=== PATIENT | female | born 1960 | race Caucasian/White ===

== ENCOUNTER 2023-05-18 22:17 | Emergency (ER) | payer OTHER, SELFPAY ==
[2023-05-18 22:18] VITALS: BP 179/95; PULSE 69; RESP 16; TEMP 36.4; O2SAT 99; BMI 46.0
--- NOTE | 2023-05-18 22:28 | RAD_ITS ---
EXAM: XR CHEST, 2 VIEWS CLINICAL INDICATION: chest pain TECHNIQUE: Frontal and lateral views of the chest. COMPARISON: No relevant prior studies available. FINDINGS: LUNGS AND PLEURAL SPACES: Unremarkable. No consolidation or edema. No pneumothorax. No effusion. HEART: Unremarkable. Cardiac silhouette not enlarged. MEDIASTINUM: Central airways and mediastinal contour are unremarkable. BONES/JOINTS: Degenerative changes of the spine. SOFT TISSUES: Unremarkable. RAD/Chest PA and Lateral IMPRESSION: No acute findings in the chest. Electronically Signed: Arvind Manuel MD at 0:24 EDT ,
--- NOTE | 2023-05-18 22:29 | EX.ED.DYSGE1 ---
HPI History of Present Illness Chief Complaint: Other, Pain/Inj Informant: patient Narrative Narrative: Here with significant other for evaluation tightness in her throat an hour prior to arrival. She is watching TV. She had already ate dinner, there was no swallowing issues while eating. However she reports feels like something is stuck. This was not an abnormal for her. She states Mild short of breath lightheaded. She does have a history of anxiety. Reports history of hiatal hernia diagnosed 2 weeks ago with endoscopy Dr. Nielsen. She has been having swallowing issues therefore endoscopy performed with findings of the hiatal hernia. Denies any other acute findings or any strictures. Recommendation was to continue her omeprazole. Reports mild chest discomfort when discussed. No nausea or vomiting. No radicular symptoms. She did drink fluids prior to arrival with no difficulties. History of hyperlipidemia. Denies diabetes or hypertension. Denies tobacco. Prior similar symptoms: No PFSH [facility] Medical History Acid reflux Anxiety Hiatal hernia High cholesterol Home Medications atorvastatin 20 mg tablet 20 mg PO DAILY 05/18/23 [History Last Taken Unknown] citalopram 20 mg tablet 20 mg PO DAILY 05/18/23 [History Last Taken Unknown] omeprazole 20 mg capsule,delayed release 20 mg PO DAILY 05/18/23 [History Last Taken Unknown] Allergy/AdvReac Type Severity Reaction Status Date / Time No Known Allergies Allergy Verified 05/18/23 22:17 Social History Smoking Status: Never smoker ROS [facility] ED Constitutional Constitutional ED: Denies chills, fever(s) or sweats Eyes Eyes: Denies change in vision ENT ENT ED: Denies dysphagia or sore throat Cardiovascular Cardiovascular: Reports chest pain; Denies leg edema, palpitations or racing heartbeat Respiratory/Chest Respiratory/Chest: Denies cough, dyspnea or dyspnea on exertion Gastrointestinal Gastrointestinal: Denies abdominal pain, diarrhea, nausea or vomiting Genitourinary Genitourinary ED: Denies dysuria, hematuria or urinary frequency Musculoskeletal Musculoskeletal: Denies back pain, extremity pain or neck pain Integumentary Denies rash or wounds Neurologic Neurologic: Denies headache(s), paresthesias or weakness EXAM Physical Exam Const Vital Signs: 05/18/23 22:18 05/18/23 23:42 05/19/23 02:29 Temperature 97.5 F L Temperature Source Temporal Pulse Rate 69 63 Respiratory Rate 16 16 Blood Pressure 179/95 H 118/73 Blood Pressure Mean 123 88 Pulse Ox 99 98 97 Oxygen Delivery Method Room Air Room Air 05/19/23 02:30 Temperature Temperature Source Pulse Rate 61 Respiratory Rate 16 Blood Pressure 118/73 Blood Pressure Mean Pulse Ox 98 Oxygen Delivery Method Positive well nourished and well developed General Appearance ED: well developed and NAD HEENT Reports moist mucous membranes HEENT Narrative: No lip or tongue swelling airway patent no stridor. normocephalic and atraumatic Eyes PERRL, EOMs intact bilaterally and conjunctivae normal General Eye ED: Yes normal appearance of both eyes Neck no lymphadenopathy and supple Neck Narrative: No crepitus General: Negative for tenderness Chest Wall inspection of chest normal and palpation of chest normal Chest: Negative for tenderness Resp normal respiratory effort and normal air movement Effort and Inspection: symmetric chest movement; Negative for respiratory distress Cardio regular rate, regular rhythm and no murmurs Peripheral Pulses: pulses 2+ throughout GI normal to inspection, nondistended, normoactive bowel sounds and non-tender Palpation: Negative for guarding or rebound tenderness present Back/Spine no CVA tenderness and no thoracic nor lumbar tenderness Extremity normal to inspection General Extremety ED: Negative for edema or tenderness General Extremity: Negative for edema Neuro oriented x3 and no sensory deficits noted Sensorium / Orientation: awake and alert Skin no rashes or lesions noted and no wounds MDM MDM MDM Narrative Medical decision making narrative: Interventions / MDM: Differential diagnosis: Atypical chest pain Diagnosis considered but do not suspect: ACS however normal EKG negative cardiac enzymes, allergic reaction, however no swelling, normal typical foods eaten in the past. Symptoms resolved without intervention. My EKG interpretation: Sinus rate of 64, no ST or T wave changes. Imaging independently reviewed and interpreted by myself: 2 view chest x-ray: No acute process. External documents reviewed: N/A Test considered but not ordered:N/A ED course: Stable throat tightness no airway compromise. No respiratory distress. Nontoxic. EKG obtained normal. Cardiac work-up initiated. Aspirin given. Initial difficulty with IV blood work. Obtain initial troponin negative. Hemoglobin 13. Electrolyte normal. Two-view chest x-ray negative also read by radiology. 0140: Multiple reevaluations symptoms were improving. She is tolerating oral fluid intake on reevaluation. Awaiting delta troponin. 0230: Repeat troponin also negative. Symptoms improved. Outpatient follow-up for further testing with strict return precautions. All questions were answered. Re-evaluation: stable Disposition discussed with patient/family/significant other: Patient and significant other Case discussed with consulting clinician: N/A This note was generated with Secret dictation software. It may contain incorrect words, spelling, and punctuation that were not noted in checking the note before signing. Lab Data Attestation: I reviewed the patient's lab results. Labs: Laboratory Results - last 24 hr 05/18/23 05/19/23 23:40 01:53 WBC 8.0 RBC 4.27 Hgb 13.0 Hct 39.4 MCV 92.3 MCH 30.4 MCHC 33.0 RDW Std Deviation 41.0 RDW Coeff of Conrad 12.2 Plt Count 245 MPV 10.3 Immature Gran % (Auto) 0.600 Neut % (Auto) 50.8 Lymph % (Auto) 40.3 Sharkey % (Auto) 6.5 Eos % (Auto) 1.4 Baso % (Auto) 0.4 Absolute Neuts (auto) 4.0 Absolute Lymphs (auto) 3.20 Nucleated RBC % 0 Sodium 142 Potassium 3.7 Chloride 110 H Carbon Dioxide 30.0 Anion Gap 2 L BUN 18 Creatinine 0.82 Estim Creat Clear Calc 56.98 Est GFR (MDRD) Af Amer 91 Est GFR (MDRD) Non-Af 75 BUN/Creatinine Ratio 21.9 H Glucose 114 H Calcium 9.3 Troponin I High Sens 7 7 Radiography Diagnostic Testing: Clinical Impression(s) from Imaging Studies Chest X-Ray 05/18/23 22:28 IMPRESSION: No acute findings in the chest. Electronically Signed: Arvind Manuel MD at 0:24 EDT , Discharge Plan Triage Chief Complaint: Other, Pain/Inj ED Provider: Henry Vasques Dx/Rx/DC Orders Clinical Impression: Chest pain Instructions: ED Chest Pain, Uncertain Cause Prescriptions: No Action atorvastatin 20 mg tablet 20 mg PO DAILY citalopram 20 mg tablet 20 mg PO DAILY omeprazole 20 mg capsule,delayed release(DR/EC) 20 mg PO DAILY Primary Care Provider: Rupa Miranda NP Referrals: Rupa Miranda NP, TE[employer]NICAL SOLUTION ARCHITECT-[employer] [Primary Care Provider] - 3-5 Days Activity Restrictions/Additional Instructions: EKG cardiac work-up negative. Chest x-ray negative. Follow-up with your doctor further testing. Return if any worsening or recurrent symptoms. Disposition Disposition: Home, Self Care Discharge Date/Time: 05/19/23 02:34
[2023-05-18 23:42] VITALS: O2SAT 98
[2023-05-18] MEDS: Aspirin 81 MG TAB.CHEW 324 MG PO (23:45)
[2023-05-18 23:55] LABS: Basophil# 0.03 X10^3/uL; Basophil% 0.4 % (0-1); Eosinophil# 0.11 X10^3/uL; Eosinophils% 1.4 % (0-5); Hematocrit 39.4 % (37-47); Lymphocyte % 40.3 % (19-41); Mean Corpuscular Hgb 30.4 pg (27.0-32.0); Mean Corpuscular Volume 92.3 fL (81-99); Mean Platelet Vol. 10.3 fl (6.2-12.0); Monocyte# 0.52 X10^3/uL; Monocyte% 6.5 % (0-10); NRBC Flagged by Analyzer 0 % (0-5); Neutrophil # 4.04 X10^3/uL (2.7-7.7); Neutrophil % 50.8 % (47-70); Platelet Count 245 K/mm3 (150-450); RBC Distribution Width CV 12.2 % (11.6-14.6); Red Blood Count 4.27 M/mm3 (4.2-5.4)
[2023-05-19 00:01] LABS: Anion Gap 2 (5-15); BUN 18 mg/dL (7-18); BUN/Creat Ratio 21.9 RATIO (10-20); Calcium,Total 9.3 mg/dL (8.5-10.1); Chloride 110 mmol/L (98-107); Creatinine, Serum 0.82 mg/dL (0.55-1.02); EST Glomerular Filtration Rate 75 mL/min (>60); Est Glom Filt Rate - Afr Amer 91 mL/min (>60); Estimated Creatinine Clearance 56.98 ml/min; Glucose 114 mg/dL (74-106); Potassium 3.7 mmol/L (3.5-5.1); Sodium Level 142 mmol/L (136-145); Troponin-I HS (w/2H Reflex) 7 pg/mL (3.0-54.0)
[2023-05-19 01:42] LABS: Reflex Troponin-HS? (from REC) Y
[2023-05-19 02:15] LABS: Troponin-I HS 7 pg/mL (3.0-54.0)
[2023-05-19 02:29] VITALS: BP 118/73; PULSE 63; RESP 16; O2SAT 97
[2023-05-19 02:30] VITALS: BP 118/73; PULSE 61; RESP 16; O2SAT 98
== END 2023-05-19 02:34 | disposition home or self-care (01) ==
PROVIDERS: Emergency Provider Emergency Medicine; PCP Nurse Practitioner Primary Care; Visit Provider Emergency Medicine
DX: R07.9 Chest pain, unspecified (principal); E78.00 Pure hypercholesterolemia, unspecified; K21.9 Gastro-esophageal reflux disease without esophagitis; Z79.899 Other long term (current) drug therapy
CPT/HCPCS: 71046; 80048; 84484; 85025; 93005; 99284; A4216

== ENCOUNTER → 2023-07-02 | Outpatient (CLI) | payer OTHER, SELFPAY ==
--- NOTE | 2023-07-02 07:44 | US_ITS ---
INDICATION: RUQ pain EXAMINATION: Ultrasound US Abdomen Limited (quadrant) TECHNIQUE: Macario scale and color doppler imaging was performed of the right upper quadrant. COMPARISON: No relevant prior comparison study available FINDINGS: LIVER: The liver is enlarged measuring about 19 cm in length and is echogenic heterogeneous in texture. The portal vein is patent with normal hepatopedal flow. No focal hepatic lesion. There is no free fluid. GALLBLADDER AND BILIARY TREE: Solitary gallstone is seen. Normal gallbladder wall measures 1.6 mm. The proximal common bile duct measures 3.4 mm, which is within normal limits for the patient''s age. Sonographic Cobb''s sign: Negative. PANCREAS: Somewhat echogenic in texture. The tail of the pancreas is obscured by bowel gas. Right kidney: The right kidney measures about 10.6 cm in length. The renal cortex measures 1.1 cm. No evidence of hydronephrosis. US/Liver IMPRESSION: 1. Gallstone without evidence of bladder wall thickening or biliary dilatation. 2. Hepatomegaly. 3. Echogenic heterogeneous liver which may reflect fatty infiltration or metastatic disease. Electronically Signed: Dann Murillo MD at 12:02 EST ,
--- NOTE | 2023-07-02 08:12 | BI_ITS ---
MAMMOGRAPHY - BILATERAL SCREENING REASON FOR EXAM: Female, 62 years old. Routine annual screening examination. PERTINENT HISTORY: Non-contributory. TECHNIQUE: Digital bilateral breast key (3D mammographic acquisition) in the CC and MLO projections. 2-D mediolateral oblique (MLO) and craniocaudad (CC) views of both breasts were obtained. CAD: Full Field Digital Mammography with Computer Added Detection was performed. COMPARISON: Comparison is made with prior outside examination dated January 22, 2020. FINDINGS: Breast Composition: The breasts are almost entirely fatty. There are no dominant masses or suspicious calcifications. Small benign-appearing bilateral axillary lymph nodes. No other significant abnormalities are identified. There has been no significant change since the prior study. BI/SCRN MAMM (CAD)W/KEY BILAT IMPRESSION: Stable bilateral screening mammogram. Yearly follow-up mammogram recommended. (A) ASSESSMENT CATEGORY: BIRADS Category 2: Benign. A letter regarding these results will be sent to the patient by the facility within 30 days. Approximately 10% of breast cancers are not detected by mammography. A normal mammogram should not delay biopsy of a clinically suspicious abnormality. [id number] Electronically Signed: Killian Christie MD at 9:50 EST ,
== END | disposition home or self-care (01) ==
LOC: US 07:43
PROVIDERS: PCP Internal Medicine; Referring Provider Internal Medicine; Visit Provider Internal Medicine
DX: Z12.31 Encounter for screening mammogram for malignant neoplasm of breast (principal); R10.11 Right upper quadrant pain
CPT/HCPCS: 76705; 77063; 77067

== ENCOUNTER 2023-07-23 12:17 | Day surgery (SDC) | payer OTHER, SELFPAY ==
[2023-07-23] VITALS (9 sets, daily range): BP systolic 99–128; BP diastolic 51–66; PULSE 61–77; RESP 16–18; TEMP 36.6–36.9; O2SAT 93–100; BMI 44.7
--- NOTE | 2023-07-23 12:22 | PCM.HP.BLA ---
History and Physical Date of Admission: 07/23/23 Date of Service: 07/16/23 MR#: [id number] Acct: [id number] Name: EDWARD PARADA Rep #: [id number] : 1960 Provider: Dr. Alcira Vizcarra MD Age/Sex: 62/F Location: [facility] Status: Signed Intake Vital Signs 06/20/2312:48 07/16/2308:51 Height 5 ft 2 in 5 ft 2 in Weight: 252 lb BMI 46.0 BP 136/89 H Blood Pressure Location Rt brachial Position Sitting Respiration 17 Pulse 85 Pulse Source Monitor Temp 97.3 F L Temp Source Temporal Pulse Oximetry (%) 97 Oxygen Delivery Method room air Intake Visit Reasons: RUQ PAIN Chief Complaint: ruq pain Is patient in pain?: Yes Allergies No Known Allergies Allergy (Verified 07/16/23 08:52) Medications atorvastatin 20 mg tablet 20 mg PO DAILY 05/18/23 [History Confirmed 07/16/23] citalopram 20 mg tablet 20 mg PO DAILY 05/18/23 [History Confirmed 07/16/23] omeprazole 20 mg capsule,delayed release 20 mg PO DAILY 05/18/23 [History Confirmed 07/16/23] cholecalciferol (vitamin D3) 10 mcg (400 unit) capsule 10 mcg PO DAILY 06/14/23 [History Confirmed 07/16/23] magnesium 200 mg tablet 200 mg PO DAILY 06/14/23 [History Confirmed 07/16/23] vitamin B complex 1 cap PO DAILY 06/14/23 [History Confirmed 07/16/23] PFSH Medical History Acid reflux Anxiety Hiatal hernia High cholesterol Surgical History Encounter for Essure implantation History of removal of cyst Family History Mother Diabetes History of blood clots Anxiety HypertensionFather Diabetes Hypertension Pancreatic cancerSister History of blood clots LymphedemaGrandmother Diabetes Social History adopted: No household members: spouse current occupational status: employed current occupation: [employer] pets and animals: Yes (2) pets and animals: dog(s) history of recent travel: No Smoking Status: Former smoker pack-years: 5 Tobacco: How many years used: 5 Electronic Cigarette Use: not used alcohol intake: never substance use type: does not use diet: low carbohydrate caffeine: Yes (2) Type: coffee frequency: 3-4 times per week ni/orthodoxy: Holiness seatbelt use: always do you feel safe at home: Yes HPI HPI HPI: 63-year-old female presents due to right upper quadrant pain and gallstones. Patient states that she has been having flareups. States that yesterday she did have 1 x 11 a.m. did eat yogurt and some berries about 10 AM. Patient states she had right upper quadrant/epigastric pain rates at the highest as a 9/10 states it did continue throughout the day but patient did have yogurt again that day. Patient states she had nausea denies any vomiting. Did not get better until last night. Patient states today the pain is about a 5/10. Patient has been on omeprazole 20 mg p.o. daily for a couple years. Patient states she may have reflux symptoms maybe twice a week without these flareups are different. Patient had an ultrasound showed a gallstone normal wall normal, bile duct no pericholecystic fluid. ROS General General: Yes weight change; No appetite, fatigue, colon cancer, breast cancer or weakness HEENT HEENT: No difficulty swallowing, eye injury, eye surgery, swollen glands or hoarseness Endo Endocrine: No thyroid disease, diabetes mellitus, thyroid cancer, Hair loss, heat intolerance or cold intolerance Skin Skin: No rash or changing moles Musc Musculoskeletal: No back problems, arthritis, rheumatoid arthritis, gout or joint pain Cardio Cardiovascular: Yes murmur; No pacemaker, heart disease, atrial fibrillation, high blood pressure, heart attack, heart stent, palpitations, shortness of breat with exertion or chest pain Psych Psychiatric: Yes anxiety; No depression or hearing voices Resp Respiratory: No shortness of breath, Yes sleep apnea, No cough, No COPD, No asthma, No emphysema and No wheezing Gastro Gastrointestinal: Yes abdominal pain, Yes nausea or vomiting, No diarrhea, No constipation, No blood in stool, Yes acid reflux, No hemorrhoids, No ulcers, Yes gallbladder problem and No black,tarry stools Uriah Hematologic: No blood thinners, No blood disorders, No bleeding, No anemia and No blood clots Neuro Neurologic: No system reviewed and no additional complaints, except as documented, No as per HPI, No abnormal gait, No abnormal hearing, No abnormal movements, No abnormal speech, No behavioral changes, No burning sensations, No confusion, No convulsions, No disequilibrium, No dizziness, No localized weakness, No frequent falls, No headache(s), No lack of coordination, No loss of vision, No memory loss, No numbness, No other visual disturbances, No radicular pain, No restless legs, No sensory deficit, No syncope, No tingling, No tremor(s), No weakness and No other Exam Const General: cooperative, healthy appearing, comfortable and no acute distress HENMT Head: normocephalic and atraumatic Neck Neck: supple Resp Effort & Inspection: normal respiratory effort Cardio Rate: regular rate GI Inspection: non-distended Palpation: soft, no hernias and tender in the epigastrum and in the RUQ Skin General: no rashes or lesions noted Neuro General: CN's II-XI intact bilaterally Extrem General: normal to inspection Psych Mental Status: mental status grossly normal Attitude: cooperative Assessment and Plan Assessment and Plan (1) Cholelithiasis: Status: Acute Plan Reviewed the anatomy with the patient and discussed the procedure: laparoscopic cholecystectomy with possible cholangiograms, possible open. Review risks including but not limited to bleeding, infection, hernia, bile leak, retained gallstones requiring another procedure ERCP- Endoscopic Retrograde Cholangiopancreatography, injury to another organ (bile ducts, common bile duct, small bowel, etc.) and conversion to an open procedure. All questions were answered. Will have patient increase her omeprazole to 40 mg p.o. daily during the perioperative time and also asked patient to stay with any fatty or greasy foods prior to surgery. Patient was agreeable with plan. Alcira Vizcarra M.D. Pager: [phone] [facility] [address] [place] [address], [facility], [address] [place] [address] Office: [phone] Coding Level of Care Code Off vis,new,level 3 Diagnoses Cholelithiasis K80.20 07/16/23 0947 <Electronically signed by Alcira Vizcarra MD> Date Alcira Vizcarra MD
[2023-07-23] MEDS: Lactated Ringers 1,000 ML 15 ML IV ×2 (12:50→16:42)
[2023-07-23 13:51] LABS: AST(SGOT) 27 U/L (15-37); Alanine Aminotransfer ALT/SGPT 47 U/L (13-56); Albumin, Serum 3.6 g/dL (3.2-5.0); Alkaline Phosphatase 68 U/L (45-117); Bilirubin, Direct 0.15 mg/dL (0.00-0.30); Globulin 3.4 g/dL (2.2-4.2)
[2023-07-23] MEDS: Cefazolin 2 GM in 0.9% Normal Saline (100mL Bag) 100 ML IV (13:52)
--- NOTE | 2023-07-23 14:00 | GALL_PTH ---
PATIENT: EDWARD PARADA LOC: [facility] U#:[id number] AGE/SX: 63/F ROOM: RE07/23/[address]: Dr. Alcira Vizcarra MD : 1960 BED: DIS: 07/23/2023 SPEC #: [id number] RECD: 07/23/23 18:26 STATUS: MARSHALL RERadha #: [id number] ELICEO: 07/23/23 14:[address]: Alcira Vizcarra DEPT: SURGICAL PATHOLOGY RECD BY: Zaira Brown ENTERED: 07/24/23 08:36 SP TYPE: MARY BETH FARIAS DR: Dr. Ann Dennison MD Tissues: Gallbladder, NOS Procedures: Surgery Specimen Level III HEADER OPERATION: Laparoscopic, cholecystectomy with IOC PRE-OP DIAGNOSIS: Cholelithiasis TISSUE SUBMITTED: Gallbladder. MICROSCOPIC DIAGNOSIS Gallbladder, cholecystectomy: Chronic cholecystitis, cholelithiasis and cholesterolosis. AM:kevin 07/25/2023 COMMENT AM:kevin 07/25/2023 MICROSCOPIC DESCRIPTION Slides are reviewed. GROSS DESCRIPTION Received is one container labeled with the patient's name and designated gallbladder. The specimen consists of a gallbladder measuring 8.5 x 3.8 x 3.8 cm. The external surface is smooth and glistening. Focally, it is granular, hemorrhagic and contains cautery artifact. The lumen of the gallbladder contains yellow-green mucoid bile and a single ovoid green-morejon calculus measuring 1.3 x 1.2 x 1.0 cm. The mucosa is bile-stained and without any mass lesions. The gallbladder wall averages 0.1 cm in thickness and is free of mass lesions. Motion Picture Set Up Worker sections of the gallbladder and the cystic duct at margin of resection are submitted in one cassette. / AM:kevin 07/24/2023 TC:3 CPT: 96753
--- NOTE | 2023-07-23 14:13 | RAD_ITS ---
STUDY: INTRAOPERATIVE CHOLANGIOGRAM. REASON FOR EXAM: Female, 63 years old. LAP KEYA FLUOROSCOPY TIME (if supplied): ( 5 seconds ) minutes/seconds. 4.33 mGy TECHNIQUE: An intraoperative cholangiogram was performed by the surgeon. Imaging was provided. COMPARISON: None. FINDINGS: The visualized intrahepatic and extrahepatic biliary ducts are unremarkable. Free flow of contrast is seen within the duodenum. RAD/Cholangiogram/ O R,Initial IMPRESSION: Unremarkable intraoperative cholangiogram. Electronically Signed: Killian Christie MD at 14:48 EST ,
[2023-07-23] MEDS: Bupivacaine Mpf 0.5% 30 ML VIAL (14:59)
--- NOTE | 2023-07-23 15:00 | PCM.OPRPT ---
Report of Operation Date of Procedure: 07/23/23 Pre-Operative Diagnosis: Cholelithiasis Post-Operative Diagnosis: Same Surgery/Procedure Performed:: Laparoscopic cholecystectomy with cholangiograms Surgeon: Alcira Vizcarra kid club attendant: Wendy Euceda Type of Anesthesia: General/Supplemental Anesthesiologist: Brendan Desouza Special Medications: Ancef 2 g IV x 1 Specimen's removed: Gallbladder Estimated Blood Loss (mL): < 10 cc Description of Procedure: Indications: this is a 63 year-old female who developed abdominal pain/nausea/vomiting and on workup was found to have cholelithiasis, with a normal common bile duct. Laparoscopic cholecystectomy was elected. Description procedure: The patient was placed on operating table in supine position. A timeout was completed verifying correct patient, procedure, site, position and special equipment prior to beginning procedure. General Anesthesia was induced. The abdomen was prepped and draped in usual sterile fashion. An incision was made in the natural skin line above the umbilicus. The fascia was elevated and incised. The peritoneum was elevated and incised. Entry into the peritoneum was confirmed visually and no bowel was noted in the vicinity of the incision. [place] trocar was placed. The abdomen was insufflated with carbon dioxide to a pressure of 12-15 mmHg. Patient tolerated insufflation well. The laparoscope was then inserted and abdomen inspected. No injuries from initial trocar placement were noted. Additional trochars were then inserted in the following locations 5 mm trocar in the epigastrium and 2 more 5 mm trochars along the right costal margin. The abdomen was inspected no abnormalities were found. The table is placed in reverse Trendelenburg position with the right side up. The dome of the gallbladder was grasped with atraumatic grasper passed through the lateral port and retracted over the dome of the liver. Infundibulum was then grasped with atraumatic grasper through the midclavicular port and retracted to the right lower quadrant. This maneuver exposed Calot's triangle. The peritoneum overlying the gallbladder infundibulum was then incised and cystic duct and artery identified and circumferentially dissected. Melton catheter was used for cholangiograms. The cholangiogram showed good filling of the common bile duct into the duodenum with no filling defects, good filling of the right and left bile ducts as well. The cystic duct and artery were then doubly clipped and divided close to the gallbladder. The gallbladder then dissected from its peritoneal attachments by electrocautery. Hemostasis was checked and the gallbladder and contained stones were removed using the endoscopic retrieval bag through the umbilical port. The gallbladder is passed off table as specimen. The gallbladder fossa was irrigated with saline and hemostasis obtained. There is no evidence of bleeding from the gallbladder fossa or cystic artery leakage of bile from the cystic duct stump. Secondary trochars removed under direct vision. No bleeding was noted the trocar sites. The laparoscope was withdrawn and umbilical trocar removed. The abdomen was allowed to collapse. The fascia of the 12 mm trocar was closed with a [id number] 0 Vicryl suture. The skin was closed with sutures of 4-0 Monocryl and Steri-Strips. The patient was extubated. The patient tolerated procedure well and was taken to the postanesthesia care unit in stable condition. Complications none
--- NOTE | 2023-07-23 15:02 | DCINST_ITS ---
Discharge Instructions Diet Discharge Diet: Light diet - advance as tolerated Activity Discharge Activity: May Not Drive (while taking narcotic pain medications.) May shower in (days): 1 Lifting Restrictions: no lifting >20 lbs x 2 wks, no strenuous exercise for 4 wks Dressing / Incision Call your doctor if your incision/area has: Continuous Slow Oozing, Sudden Increased Bleeding, Increased Pain/ Swelling, Increased Redness, Foul Smelling Discharge and Swelling at the incision site Call your doctor if you observe: Fever of 101 or Higher Remove Dressing in: 2 days Cleanse incision/area with: Soap & Water Additional Dressing/Incision Instructions:: Steri-Strips will fall off in 7 to 10 days, if they do not fall off okay to remove after 10 days. Follow Up Care Please Follow Up With: Alcira Vizcarra MD When: Call the office for a follow-up appointment 2 weeks; after 5 PM and on the weekends call [phone] with any concerns. Test Results: Test results from this visit will be discussed in further detail at your follow- up appointment, if applicable. Discharge Plan Admission Attending Provider: Alcira Vizcarra Primary Care Provider: Ann Dennison Discharge Orders/Prescriptions Prescriptions: New tramadol 50 mg tablet 50 mg PO Q6H PRN (Reason: pain) Qty: 14 0RF Continued magnesium 200 mg tablet 200 mg PO DAILY cholecalciferol (vitamin D3) 10 mcg (400 unit) capsule 10 mcg PO DAILY vitamin B complex Capsule 1 cap PO DAILY Probiotic Acidophilus 250 million cell capsule 500 mmu cells PO DAILY atorvastatin 20 mg tablet 20 mg PO DAILY citalopram 20 mg tablet 20 mg PO DAILY omeprazole 20 mg capsule,delayed release(DR/EC) 40 mg PO DAILY Referrals / Follow Up: Ann Dennison MD [Primary Care Provider] - Disposition Disposition (needs filled in before D/C Order can be placed): Home, Self Care
== END 2023-07-23 17:37 | disposition home or self-care (01) ==
LOC: SDC 12:18 → AC 12:20
PROVIDERS: PCP Internal Medicine; Referring Provider Surgery; Visit Provider Surgery
PROC: (CPT 47610; principal; 2023-07-23 13:40)
DX: K80.10 Calculus of gallbladder with chronic cholecystitis without obstruction (principal); E78.00 Pure hypercholesterolemia, unspecified; F41.9 Anxiety disorder, unspecified; K21.9 Gastro-esophageal reflux disease without esophagitis; Z87.891 Personal history of nicotine dependence; Z79.899 Other long term (current) drug therapy
CPT/HCPCS: 47563; 00790; 74300; 76000; 80076; 88304; 93005; J7120; J2405

== ENCOUNTER → 2023-11-30 | Outpatient (CLI) | payer OTHER, SELFPAY ==
[2023-12-05 15:08] LABS: HPV APTIMA, High Risk Negative (Negative)
== END | disposition home or self-care (01) ==
LOC: LABSPEC 16:53
PROVIDERS: PCP Internal Medicine; Referring Provider Advanced Practice Midwife; Visit Provider Advanced Practice Midwife
DX: Z12.4 Encounter for screening for malignant neoplasm of cervix (principal)
CPT/HCPCS: 87624; 88175; G0145

== ENCOUNTER → 2024-01-30 | Outpatient (CLI) | payer OTHER, SELFPAY ==
[2024-01-30 17:03] LABS: ALB/GLOB Ratio 1.2 RATIO (0.9-2.4); AST(SGOT) 27 U/L (15-37); Alanine Aminotransfer ALT/SGPT 31 U/L (13-56); Albumin, Serum 3.6 g/dL (3.2-5.0); Alkaline Phosphatase 68 U/L (45-117); Anion Gap 4 (5-15); BUN 15 mg/dL (7-18); BUN/Creat Ratio 23.8 RATIO (10-20); Calcium,Total 9.3 mg/dL (8.5-10.1); Chloride 110 mmol/L (98-107); Cholesterol 152 mg/dL (200); Creatinine, Serum 0.63 mg/dL (0.55-1.02); EST Glomerular Filtration Rate 101 mL/min (>60); Est Glom Filt Rate - Afr Amer 123 mL/min (>60); Globulin 3.1 g/dL (2.2-4.2); Glucose 106 mg/dL (74-106); High Density Lipoprotein 46 mg/dL; Potassium 4.1 mmol/L (3.5-5.1); Protein, Total 6.7 g/dL (6.4-8.2); Sodium Level 140 mmol/L (136-145); Triglycerides 62 mg/dL; Very Low Density Lipoprotein 12 mg/dL (5-40)
== END | disposition home or self-care (01) ==
PROVIDERS: PCP Internal Medicine; Visit Provider Internal Medicine
DX: E78.2 Mixed hyperlipidemia (principal)
CPT/HCPCS: 36415; 80053; 80061

== ENCOUNTER → 2024-04-07 | Outpatient (CLI) | payer OTHER, SELFPAY ==
--- NOTE | 2024-04-07 07:18 | MRI_ITS ---
STUDY: MRI BRAIN WITH AND WITHOUT CONTRAST REASON FOR EXAM: Female, 63 years old. headaches, facial numbness TECHNIQUE: Standardized multiplanar fat and water weighted pulse sequences were obtained. IV 24ml clariscan was administered for the contrast portion of the examination. COMPARISON: None. FINDINGS: Normal size of the ventricles and extra-axial spaces for the patient''s age. Normal white matter tracts of the supratentorial brain. There is no evidence for recent intracranial ischemia or other cause of cytotoxic edema on diffusion weighted imaging (DWI). Normal T2* images of the brain without demonstrated susceptibility artifact. There is no demonstrated hemosiderin stain. Normal bilateral basal ganglia. Normal thalami. There is no extra-axial fluid accumulation. Normal flow voids within the major intracranial circulation suggesting patency by spin echo criteria. Normal venous enhancement. There is no enhancing intra-axial or extra-axial abnormality. Normal sella turcica, pituitary gland, infundibular stalk, optic chiasm and hypothalamus. Normal tectal plate and pineal gland. Normal midbrain, justin and medulla. Normal cerebellum. Normal basal cisterns. Normal bilateral temporal bones. Normal bilateral internal auditory canals. No demonstrated orbital abnormality, within the constraints of a routine brain study. Normal visualized paranasal sinuses. Normal calvarium and skull base. Normal visualized soft tissue structures. Normal visualized upper cervical spine. MRI/Brain W/WO Contrast IMPRESSION: Normal unenhanced and enhanced MRI of the brain. Electronically Signed: German Washington MD at 8:54 EDT ,
[2024-04-07 08:02] LABS: CREATININE FINGERSTICK < 1.0 mg/dL (0.55-1.02); EGFR FINGERSTICK > 60.0000 mL/min (>60)
== END | disposition home or self-care (01) ==
PROVIDERS: PCP Internal Medicine; Referring Provider Nurse Practitioner; Visit Provider Nurse Practitioner
DX: R20.0 Anesthesia of skin (principal); R51.9 Headache, unspecified
CPT/HCPCS: 70553; A9575

== ENCOUNTER 2024-04-24 15:18 | Outpatient (CLI) | payer OTHER, SELFPAY ==
--- NOTE | 2024-04-24 15:40 | RAD_ITS ---
INDICATION: right 4th finger pain EXAMINATION/TECHNIQUE: X-RAY - RIGHT HAND XR Fingers Min 2 Views COMPARISON: None. FINDINGS: No acute fracture or malalignment. No blastic or lytic lesions. No degenerative changes are seen. The soft tissues are unremarkable. RAD/Finger(s) Min 2 Views IMPRESSION: No acute radiographic abnormalities. Electronically Signed: Chris Dawn MD at 16:50 EDT ,
== END 2024-04-24 23:59 | disposition home or self-care (01) ==
LOC: RAD 15:19
PROVIDERS: PCP Internal Medicine; Referring Provider Nurse Practitioner; Visit Provider Nurse Practitioner
DX: M79.644 Pain in right finger(s) (principal)
CPT/HCPCS: 73140

== ENCOUNTER → 2024-07-03 | Outpatient (CLI) | payer OTHER, SELFPAY ==
--- NOTE | 2024-07-03 14:48 | BI_ITS ---
MAMMOGRAPHY - BILATERAL SCREENING REASON FOR EXAM: Female, 63 years old. Routine annual screening examination. PERTINENT HISTORY: Non-contributory. TECHNIQUE: Digital bilateral breast key (3D mammographic acquisition) in the CC and MLO projections. 2-D mediolateral oblique (MLO) and craniocaudad (CC) views of both breasts were obtained. CAD: Full Field Digital Mammography with Computer Added Detection was performed. COMPARISON: Comparison is made with prior study July 02, 2023. FINDINGS: Breast Composition: The breasts are almost entirely fatty. There are no dominant masses or suspicious calcifications. Stable small bilateral fat containing axillary lymph nodes. No other significant abnormalities are identified. There has been no significant change since the prior study. BI/SCRN MAMM (CAD)W/KEY BILAT IMPRESSION: Stable bilateral screening mammogram. Yearly follow-up mammogram recommended. (A) ASSESSMENT CATEGORY: BIRADS Category 2: Benign. A letter regarding these results will be sent to the patient by the facility within 30 days. Approximately 10% of breast cancers are not detected by mammography. A normal mammogram should not delay biopsy of a clinically suspicious abnormality. [id number] Electronically Signed: Killian Christie MD at 15:43 EST ,
== END | disposition home or self-care (01) ==
LOC: OPBI 14:48
PROVIDERS: PCP Internal Medicine; Referring Provider Advanced Practice Midwife; Visit Provider Advanced Practice Midwife
DX: Z12.31 Encounter for screening mammogram for malignant neoplasm of breast (principal)
CPT/HCPCS: 77063; 77067

== ENCOUNTER → 2024-09-02 | Outpatient (CLI) | payer OTHER, SELFPAY ==
[2024-09-02 16:13] LABS: Absolute Lymphocyte Count 2.04 X10^3/uL (0.83-4.51); Absolute Neutrophil Count 4.5 X10^3/uL (2.0-7.7); Basophil# 0.03 X10^3/uL; Basophil% 0.4 % (0-1); Eosinophil# 0.11 X10^3/uL; Eosinophils% 1.5 % (0-5); Hematocrit 43.1 % (37-47); Hemoglobin 14.2 g/dL (12.0-15.0); Lymphocyte # 2.04 X10^3/ul (0.83-4.51); Lymphocyte % 28.5 % (19-41); Mean Corp Hgb Conc 32.9 g/dL (32-36); Mean Corpuscular Hgb 30.6 pg (27.0-32.0); Mean Corpuscular Volume 92.9 fL (81-99); Mean Platelet Vol. 10.4 fl (6.2-12.0); Monocyte# 0.43 X10^3/uL; NRBC Flagged by Analyzer 0 % (0-5); Neutrophil # 4.51 X10^3/uL (2.7-7.7); Neutrophil % 63.2 % (47-70); Platelet Count 246 K/mm3 (150-450); RBC Distribution Width CV 12.2 % (11.6-14.6); RBC Distribution Width SD 41.6 fl (35.1-43.9); Red Blood Count 4.64 M/mm3 (4.2-5.4); White Blood Count 7.2 K/mm3 (4.4-11.0)
[2024-09-02 16:24] LABS: AST(SGOT) 22 U/L (15-37); Alanine Aminotransfer ALT/SGPT 23 U/L (13-56); Albumin, Serum 3.6 g/dL (3.2-5.0); Alkaline Phosphatase 79 U/L (45-117); Anion Gap 4 (5-15); BUN 20 mg/dL (7-18); BUN/Creat Ratio 25.7 RATIO (10-20); Calcium,Total 9.2 mg/dL (8.5-10.1); Chloride 109 mmol/L (98-107); Cholesterol 230 mg/dL (200); Creatinine, Serum 0.78 mg/dL (0.55-1.02); EST Glomerular Filtration Rate 80 mL/min (>60); Est Glom Filt Rate - Afr Amer 96 mL/min (>60); Globulin 3.5 g/dL (2.2-4.2); Glucose 100 mg/dL (74-106); High Density Lipoprotein 55 mg/dL; Potassium 4.3 mmol/L (3.5-5.1); Protein, Total 7.1 g/dL (6.4-8.2); Sodium Level 140 mmol/L (136-145); Triglycerides 90 mg/dL; Very Low Density Lipoprotein 18 mg/dL (5-40)
[2024-09-02 17:37] LABS: Vitamin D,25 Hydroxy 39.8 ng/mL
== END | disposition home or self-care (01) ==
LOC: BIMLAB 15:34
PROVIDERS: PCP Internal Medicine; Referring Provider Internal Medicine; Visit Provider Internal Medicine
DX: E55.9 Vitamin D deficiency, unspecified (principal); E78.2 Mixed hyperlipidemia; K21.9 Gastro-esophageal reflux disease without esophagitis; R11.2 Nausea with vomiting, unspecified
CPT/HCPCS: 36415; 80053; 80061; 82306; 85025

== ENCOUNTER → 2024-09-25 | Outpatient (CLI) | payer OTHER, SELFPAY ==
[2024-09-26 15:07] LABS: H. PYLORI STOOL AG Negative (Negative)
== END | disposition home or self-care (01) ==
LOC: BIMLAB 10:38
PROVIDERS: PCP Internal Medicine; Referring Provider Internal Medicine; Visit Provider Internal Medicine
DX: R10.10 Upper abdominal pain, unspecified (principal)
CPT/HCPCS: 87338

== ENCOUNTER → 2024-10-13 | Outpatient (CLI) | payer OTHER, SELFPAY ==
--- NOTE | 2024-10-13 17:20 | CT_ITS ---
PROCEDURE: CT of the abdomen/pelvis with IV contrast. REASON FOR EXAM: Prior cholecystectomy. Nausea. Right upper quadrant pain for 2 months TECHNIQUE: After the administration of 98 cc Isovue-300, contiguous axial CT images were obtained through the abdomen/pelvis. Sagittal and coronal reformats were created. COMPARISON: Abdominal ultrasound 07/02/2023 FINDINGS: Mild degenerative changes in the spine. Bones of the abdomen/pelvis otherwise unremarkable. The included lower ribs and breast tissue unremarkable. Heart is not enlarged. No sizable pericardial effusion. Small hiatal hernia. Lower lungs clear. Abdominal aorta normal in caliber. No large abdominal wall defect. No focal abnormality of the urinary bladder. Moderate patchy wall thickening of the stomach may be due to lack of distention versus peristalsis. The gallbladder is not demonstrated, absent by history. No gross dilation of the biliary tree. Portal vein is patent. The liver, adrenal glands, spleen, and pancreas show no specific abnormality. Kidneys are symmetric in size and enhancement. No solid renal mass or obstructive uropathy. No abdominal/pelvic adenopathy or ascites. No abnormally dilated bowel segments or free intraperitoneal air. Scattered patchy wall thickening of the colon may be due to lack of distention versus peristalsis. Enteric contrast has reached the distal transverse colon. Normal appendix. Bilateral tubal occlusion devices are present. No dominant adnexal lesion. Device present. CT/Abdomen/Pelvis WITH Contrast IMPRESSION: Prior cholecystectomy. No acute findings in the abdomen/pelvis. Small hiatal hernia. Moderate patchy wall thickening of the stomach, which cou ld be due to lack of distention or peristalsis. These findings could be better evaluated with follow-up endoscopy. No abnormal dilation of the biliary tree. No bowel obstruction or perforation. No obstructive uropathy or acute appendicitis. One or more dose reduction techniques were used (e.g., Automated exposure contr ol, adjustment of the mA and/or kV according to patient size, use of iterative reconstruction technique). Reading Location: [facility]
== END | disposition home or self-care (01) ==
LOC: CT 16:52
PROVIDERS: PCP Internal Medicine; Referring Provider Internal Medicine; Visit Provider Internal Medicine
DX: R10.9 Unspecified abdominal pain (principal); Z80.0 Family history of malignant neoplasm of digestive organs
CPT/HCPCS: 74177; Q9967

== ENCOUNTER 2024-11-03 08:15 | Day surgery (SDC) | payer OTHER, SELFPAY ==
[2024-11-03] VITALS (7 sets, daily range): BP systolic 95–113; BP diastolic 54–74; PULSE 42–70; RESP 16–20; TEMP 35.5–36.3; O2SAT 94–97; BMI 43.9
--- NOTE | 2024-11-03 09:45 | EGD_PTH ---
PATIENT: EDAWRD PARADA LOC: EN U#:[id number] AGE/SX: 64/F ROOM: RE11/03/[address]: Dr. Alcira Vzicarra MD : 1960 BED: DIS: 11/03/2024 SPEC #: [id number] RECD: 11/03/24 13:20 STATUS: MARSHALL GONZALEZ #: [id number] ELICEO: 11/03/24 09:[address]: Alcira Vizcarra DEPT: SURGICAL PATHOLOGY RECD BY: Colleen Katz ENTERED: 11/03/24 13:35 SP TYPE: EGD BIOPSY OT DR: Dr. Ann Dennison MD Tissues: A - Gastric mucous membrane B - Esophagus, NOS Procedures: Immunohistochemical Stains Surgery Specimen Level IV HEADER OPERATION: EGD with biopsy PRE-OP DIAGNOSIS: Gastric reflux, epigastric abdominal pain, right upper quadrant pain TISSUE SUBMITTED: A- Antrum biopsy, B- Gastroesophageal junction biopsy MICROSCOPIC DIAGNOSIS A. Stomach, antrum, biopsy: * Reactive gastropathy, mild chronic inflammation. * IHC is negative for H pylori. B. Esophagus, GE junction, biopsy: * Benign squamous mucosa. * Columnar mucosa negative for goblet cell metaplasia. MICROSCOPIC DESCRIPTION Slides are reviewed. These tests were developed and their performance characteristics determined by [facility]. They may not have been cleared or approved by the U.S. Food and Drug Administration. The FDA has determined that such clearance or approval is not necessary. The above immunohistochemical/dualISH markers are ordered and reviewed by the Pathologist. GROSS DESCRIPTION A. Received in fixative is one container labeled with the patient's name and designated Antrum biopsy. The specimen consists of one irregular fragment of light morejon soft tissue that measures 0.5 x 0.4 x 0.1 cm. The specimen is totally submitted in one cassette. B. Received in fixative is one container labeled with the patient's name and designated GE junction biopsy. The specimen consists of one irregular fragment of light morejon soft tissue that measures 0.5 x 0.3 x 0.2 cm. The specimen is totally submitted in one cassette. 11/03/2024 CPT:69670h6,78179
--- NOTE | 2024-11-03 09:46 | PCM.HP.BLA ---
History and Physical Date of Admission: 11/03/24 Date of Service: 10/08/24 MR#: [id number] Acct: [id number] Name: EDWARD PARADA Rep #: [id number] : 1960 Provider: Dr. Alcira Vizcarra MD Age/Sex: 64/F Location: [facility] Status: Signed Intake Vital Signs 09/22/2513:06 10/08/2514:08 Height 5 ft 2 in 5 ft 2 in Weight: 245 lb 248 lb BMI 44.8 45.3 BP 132/80 H 124/83 H Blood Pressure Location Lt brachial Rt brachial Position Sitting Sitting Respiration 16 7 L Pulse 77 84 Pulse Source Monitor Monitor Temp 98.8 F Temp Source Temporal Pulse Oximetry (%) 95 98 Oxygen Delivery Method room air room air Intake Visit Reasons: GERD Chief Complaint: gerd Is patient in pain?: No Allergies No Known Allergies Allergy (Verified 10/08/24 15:09) Medications ?Medication ?Instructions ?Recorded ?Confirmed ?Type cholecalciferol (vitamin D3) 10 10 mcg PO DAILY 06/14/23 10/08/24 History mcg (400 unit) capsule magnesium 200 mg tablet 200 mg PO DAILY 06/14/23 10/08/24 History fluticasone propionate 50 1 spray intranasal DAILY PRN 03/20/24 10/08/24 History mcg/actuation nasal spray,suspension (Flonase Allergy Relief) multivitamin with minerals 1 cap PO DAILY 03/20/24 10/08/24 History melatonin 10 mg capsule 10 mg PO HS PRN 09/02/24 10/08/24 History ondansetron 4 mg disintegrating 4 mg PO Q8H PRN nausea and 09/02/24 10/08/24 Rx tablet vomiting #20 tabs citalopram 20 mg tablet (Celexa) 30 mg (1.5 x 20 mg) PO QDAY #135 09/22/24 10/08/24 Rx tabs atorvastatin 20 mg tablet 20 mg PO DAILY #90 tabs 09/29/24 10/08/24 Rx pantoprazole 40 mg tablet,delayed 40 mg PO QDAY #90 tabs 09/29/24 10/08/24 Rx release (Protonix) lactobacillus combination no.4 3 3,000 mmu cells PO QDAY 10/08/24 10/08/24 History billion cell capsule (Probiotic) sucralfate 1 gram tablet 1 g PO QACHS #56 tabs 10/08/24 10/08/24 Rx Have you fallen in the past year?: No PFSH Medical History Wears glasses Post-menopausal Anxiety Injury of head and neck Gastric reflux Former smoker History of irregular heartbeat High cholesterol Hiatal hernia Surgical History History of salpingectomy S/P laparoscopic cholecystectomy Hx of esophagogastroduodenoscopy Hx of colonoscopy Hx of tonsillectomy Encounter for Essure implantation History of removal of cyst Family History Mother Diabetes History of blood clots Anxiety HypertensionFather Diabetes Hypertension Pancreatic cancerSister History of blood clots LymphedemaGrandmother DiabetesSister GERD (gastroesophageal reflux disease) Social History adopted: No household members: spouse 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 (2) pets and animals: dog(s) history of recent travel: No Smoking Status: Former smoker quit date: 08/20/94 pack-years: 5 Tobacco: How many years used: 5 Electronic Cigarette Use: not used alcohol intake: never substance use type: does not use diet: low carbohydrate caffeine: Yes (2) Type: coffee frequency: 3-4 times per week ni/catholic: Mu-Ism seatbelt use: always do you feel safe at home: Yes additional social history: - [place]- on disability Female Reproductive History Menstrual Date of menopause: 12/24/13 Ab induced: 1 Ab spontaneous: 1 HPI HPI HPI: 64-year-old female presents due to right upper quadrant and epigastric pain for an EGD. Patient previous had an EGD by Dr. Doan in 2022 may have had a hiatal hernia at that time per patient. Patient does have a history of H. pylori but that was about 30 years ago. Patient did have a stool antigen test that was negative recently. Patient states she has been on omeprazole 20 mg p.o. daily about 3 years did up to 40 mg for about 2 weeks did not notice a change however just changed to Protonix 40 mg and states that her daily sharp pain has resolved she still only has a dull constant pain little more in the right upper quadrant. Patient is status post laparoscopic cholecystectomy. ROS General General: Yes weight change; No appetite, fatigue, colon cancer or breast cancer HEENT HEENT: No difficulty swallowing, eye injury, eye surgery, swollen glands or hoarseness Endo Endocrine: No thyroid disease, diabetes mellitus, thyroid cancer, Hair loss, heat intolerance or cold intolerance Skin Skin: No rash or changing moles Musc Musculoskeletal: Yes back problems; No arthritis, rheumatoid arthritis, gout or joint pain Cardio Cardiovascular: Yes murmur; No pacemaker, heart disease, atrial fibrillation, high blood pressure, heart attack, heart stent, palpitations, shortness of breat with exertion or chest pain Psych Psychiatric: Yes anxiety; No depression or hearing voices Resp Respiratory: No shortness of breath, Yes sleep apnea, Yes cough, No COPD, No asthma, No emphysema and No wheezing Gastro Gastrointestinal: Yes abdominal pain, Yes nausea or vomiting, Yes diarrhea, No constipation, No blood in stool, Yes acid reflux, No hemorrhoids, No ulcers, Yes gallbladder problem and No black,tarry stools Uriah Hematologic: No blood thinners, No blood disorders, No bleeding, No anemia and No blood clots Neuro Neurologic: No numbness and No tingling Exam Const General: cooperative, healthy appearing, comfortable and no acute distress [facility] Head: normocephalic and atraumatic Neck Neck: supple Resp Effort & Inspection: normal respiratory effort Cardio Rate: regular rate GI Inspection: non-distended Palpation: soft and tender (Mild right upper quadrant and epigastric, no peritoneal signs) Skin General: no rashes or lesions noted Neuro General: CN's II-XI intact bilaterally Extrem General: normal to inspection Psych Mental Status: mental status grossly normal Attitude: cooperative Assessment and Plan Assessment and Plan (1) Gastric reflux: Status: Acute Comment: CONTROLLED WITH MED (2) Epigastric abdominal pain: Status: Acute (3) RUQ pain: Status: Acute Medications: New sucralfate Take an hour before meals and at bedtime 1 g PO QACHS 56 tabs 0RF Plan Also add Carafate see if that helps with her abdominal pain as well. I have discussed the above with the patient. I have offered the patient esophagogastroduodenoscopy for evaluation. I have explained the risks/benefits of the procedure and described the procedure. I have discussed the risks with the patient, including but not limited to: infection, bleeding, perforation of the GI tract requiring emergency surgery, inability to complete the procedure, injury to any internal organs, complications of anesthesia, etc. - the patient understands and agrees to proceed. I have answered all the patient's questions to the patient's satisfaction and the patient has no further questions. Alcira Vizcarra M.D. Pager: [phone] [facility] [address] [place] [address], [address] [place] [address] Office: [phone] Coding Level of Care Code Off vis,est,level 3 Diagnoses Gastric reflux K21.9 Epigastric abdominal pain R10.13 RUQ pain R10.11 Clinical Quality Measures Falls Risk Screening/Assistive Devices Have you fallen in the past year?: No 10/08/24 1539 <Electronically signed by Alcira Vizcarra MD> Date Alcira Vizcarra MD
--- NOTE | 2024-11-03 10:15 | PRE.ANES_ITS ---
ASA Classification* ASA Classification ASA Classification: 3 Assessment & Plan Anesthesia* Anesthesia Assessment Anesthesia Assessment: Discussed sedation and/or anesthesia options, risks, benefits, and alternatives with patient/parents/legal guardian/POA. Questions invited. The patient/parents/legal guardian/POA seems to understand and agrees to proceed with anesthesia plan. Reviewed the physical assessment, medical history, allergy history and patient home medications list prior to surgery/procedure/anesthetic and documented any changes. Performed airway and anesthesia risk assessments. Anesthesia Type Anesthesia Type: MAC History Source History Obtained from:: Patient and Chart Anesthesia Focused Assessment* Temperature: 97.4 F Pulse Rate: 69 Blood Pressure: 113/74 Respiratory Rate: 18 Pulse Ox: 97 Oxygen Delivery Method: Room Air Airway Assessment Mouth opens: >3 cm Mallampati Score: IV Teeth Condition: Caps/Crowns (Holiday on left lower molar. It is tight.) Neck Range of motion (ROM): Limited ROM (Somewhat decreased extension) Focused Labs Anesthesia Preop lab: CBC WBC 7.2 K/mm3 (4.4-11.0) 09/02/24 15:34 09/02/24 RBC 4.64 M/mm3 (4.2-5.4) 09/02/24 15:34 09/02/24 Hgb 14.2 g/dL (12.0-15.0) 09/02/24 15:34 09/02/24 Hct 43.1 % (37-47) 09/02/24 15:34 09/02/24 Plt Count 246 K/mm3 (150-450) 09/02/24 15:34 09/02/24 CHEMISTRY Potassium 4.3 mmol/L (3.5-5.1) 09/02/24 15:34 09/02/24 Sodium 140 mmol/L (136-145) 09/02/24 15:34 09/02/24 BUN 20 mg/dL (7-18) H 09/02/24 15:34 09/02/24 Creatinine 0.78 mg/dL (0.55-1.02) 09/02/24 15:34 09/02/24 Glucose 100 mg/dL (74-106) 09/02/24 15:34 09/02/24 COAG Pre-Assessment Diagnosis/Proposed Procedure Planned Operative Procedure(s): EGD Anesthesia History Anesthesia History - manufacturing executive: 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 When Was Last Pacemaker Check QUESTION #4 FULL TEXT: You/Your Family Experience fever (hyperthermia) with Anesthesia Last Oral Intake Last Oral intake: Last Oral Intake NPO since 18:00 11/03/24 08:44 Meds taken in AM with sips of water? Meds patient instructed to take am of surgery PONV PONV - manufacturing executive: PONV - manufacturing executive Female Yes 10/30/24 12:28 HX of Motion Sickness No 10/30/24 12:28 HX of N/V After Surgery No 10/30/24 12:28 Non-Smoker Yes 10/30/24 12:28 Duration of Surgery greater No 10/30/24 12:28 than 60 minutes Number of Risk Factors 2 10/30/24 12:28 PONV Score Moderate Risk 10/30/24 12:28 Height & Weight Height & Weight: Anesthesia: Height & Weight Height 5 ft 2 in 11/03/24 08:44 Weight: 108.862 kg 11/03/24 08:44 Body Mass Index (BMI) 43.9 11/03/24 08:44 Respiratory Assessment Respiratory Assessment - manufacturing executive: Respiratory Tract Infection Hx - manufacturing executive Hx Respiratory Tract Infection No 10/30/24 12:28 STOP Sleep Apnea STOP Sleep Apnea - manufacturing executive: STOP Sleep Apnea - manufacturing executive Hx Hypertension No 10/30/24 12:28 Hx Sleep Apnea No 10/30/24 12:28 CPAP BIPAP Do you snore loudly (louder Yes 10/30/24 12:28 than talking or can be heard Do you often feel tired/ No 10/30/24 12:28 fatigued/ sleepy during daytime? Has anyone observed you stop Yes 10/30/24 12:28 breathing during sleep? STOP Results Positive 10/30/24 12:28 QUESTION #5 FULL TEXT : Do you snore loudly (louder than talking or can be heard through closed doors)? 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 Specify any problems Hx of Preganancy in last 3 No 10/30/24 12:28 Months Nurse Filling Out Transfusion JZOLLINGE 10/30/24 12:28 & Questions: Date: 10/30/24 10/30/24 12:28 Time: 12:33 10/30/24 12:28 Patient unable to answer at this time (ie. confused, unrespo /Reproduction History /Reproductive History - manufacturing executive: /Reproductive Hx- manufacturing executive Hx Now No 10/30/24 12:28 Gestational Age (in weeks): EDC: Hx Hx Para Hx Section SAB No 10/30/24 12:28 [facility] Medical History History of hiatal hernia Heartburn Wears glasses Post-menopausal Anxiety Injury of head and neck Gastric reflux Former smoker History of irregular heartbeat High cholesterol Hiatal hernia Home Medications ?Medication ?Instructions ?Recorded ?Last Taken ?Type cholecalciferol (vitamin D3) 10 10 mcg PO DAILY 11/02/24 History mcg (400 unit) capsule magnesium 200 mg tablet 200 mg PO DAILY 06/14/23 History fluticasone propionate 50 1 spray intranasal DAILY PRN 03/20/24 Unknown History mcg/actuation nasal allergy symptoms spray,suspension (Flonase Allergy Relief) multivitamin with minerals 1 cap PO DAILY 03/20/24 History melatonin 10 mg capsule 10 mg PO HS PRN sleep 11/01/24 History ondansetron 4 mg disintegrating 4 mg PO Q8H PRN nausea and 09/02/24 Unknown Rx tablet vomiting #20 tabs citalopram 20 mg tablet (Celexa) 30 mg (1.5 x 20 mg) P O QDAY #135 09/22/24 11/02/24 Rx tabs atorvastatin 20 mg tablet 20 mg PO DAILY #90 tabs 09/2011/02/24 Rx pantoprazole 40 mg tablet,delayed 40 mg PO QDAY #90 ta bs 09/29/24 11/01/24 Rx release (Protonix) lactobacillus combination no.4 3 3,000 mmu cells PO QD AY 10/08/24 11/02/24 History billion cell capsule (Probiotic) sucralfate 1 gram tablet 1 g PO QACHS #56 tabs 11/01/24 Rx Allergy/AdvReac Type Severity Reaction Status Date / Time No Known Allergies Allergy Verified 11/03/24 08:41 Family History Mother Diabetes History of blood clots Anxiety Hypertension Father Diabetes Hypertension Pancreatic cancer Sister History of blood clots Lymphedema Grandmother Diabetes Sister GERD (gastroesophageal reflux disease) Surgical History History of salpingectomy S/P laparoscopic cholecystectomy Hx of esophagogastroduodenoscopy Hx of colonoscopy Hx of tonsillectomy Encounter for Essure implantation History of removal of cyst Social History adopted: No household members: spouse 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
--- NOTE | 2024-11-03 10:45 | OP.CCLET_ITS ---
11/03/2024 Ann Dennison Md Re : Upper GI endoscopy procedure for Maria Teresa Busch Dear Jesi This procedure was performed on Sunday, November 03, 2024. My impressions and recommendations are as follows: Impressions : - Z-line variable, 43 cm from the incisors. Biopsied. - No gross lesions in the entire esophagus. - Normal examined duodenum. - Erythematous mucosa in the antrum. Biopsied. Recommendations : - Await pathology results. - Continue present medications. My findings are described in the full procedure note, which is enclosed. If I can be of further assistance, please feel free to contact me at Doctor phone number(s): , Work: . Sincerely, MD Alcira Aleman MD 11/03/2024 10:44:35 AM This report has been signed electronically.
--- NOTE | 2024-11-03 10:45 | OP.EGD_ITS ---
Patient Name: Maria Teresa Busch Procedure Date: 11/03/2024 10:22 AM Date of : 1960 Age: 64 Procedure: Upper GI endoscopy Indications: Heartburn Providers: Alcira Vizcarra MD Referring MD: Ann Dennison Md Medicines: Monitored Anesthesia Care Patient Profile: This is a 64 year old female. Complications: No immediate complications. Procedure: Pre-Anesthesia Assessment: - Prior to the procedure, a History and Physical was performed, and patient medications and allergies were reviewed. The patient's tolerance of previous anesthesia was also reviewed. The risks and benefits of the procedure and the sedation options and risks were discussed with the patient. All questions were answered, and informed consent was obtained. Prior Anticoagulants: The patient has taken no anticoagulant or antiplatelet agents. ASA Grade Assessment: Per anesthesia. After reviewing the risks and benefits, the patient was deemed in satisfactory condition to undergo the procedure. After obtaining informed consent, the endoscope was passed under direct vision. Throughout the procedure, the patient's blood pressure, pulse, and oxygen saturations were monitored continuously. The gastroscope was introduced through the mouth, and advanced to the second part of duodenum. The upper GI endoscopy was accomplished without difficulty. The patient tolerated the procedure well. Scope In: 10:33:08 AM Scope Out: 10:38:46 AM Total Procedure Duration Time 0 hours 5 minutes 38 seconds Findings: The Z-line was variable and was found 43 cm from the incisors. Biopsies were taken with a cold forceps for histology. The cardia and gastric fundus were normal on retroflexion. No gross lesions were noted in the entire esophagus. The examined duodenum was normal. Moderately erythematous mucosa without bleeding was found in the gastric antrum. Biopsies were taken with a cold forceps for histology. Biopsies were taken with a cold forceps for Helicobacter pylori cultures. Impression: - Z-line variable, 43 cm from the incisors. Biopsied. - No gross lesions in the entire esophagus. - Normal examined duodenum. - Erythematous mucosa in the antrum. Biopsied. Recommendation: - Await pathology results. - Continue present medications. Procedure Code(s): --- Professional --- 94502, Esophagogastroduodenoscopy, flexible, transoral; with biopsy, single or multiple Diagnosis Code(s): --- Professional --- K22.89, Other specified disease of esophagus K31.89, Other diseases of stomach and duodenum R12, Heartburn CPT copyright 2021 [employer]. All rights reserved. The codes documented in this report are preliminary and upon whitewasher review may be revised to meet current compliance requirements. MD Alcira Aleman MD 11/03/2024 10:44:35 AM This report has been signed electronically. Number of Addenda: 0 Note Initiated On: 11/03/2024 10:22 AM
--- NOTE | 2024-11-03 10:47 | PCM.POST.ANE ---
Anesthesia: Postop Eval I Current Vital Signs Temperature: 97.1 F Pulse Rate: 65 Blood Pressure: 101/58 Respiratory Rate: 20 Pulse Ox: 96 Oxygen Delivery Method: Room Air Assessment Airway patent: Yes Spontaneous unlabored respirations: Yes Mental status: Awake and Calm nausea: No Vomiting: No Anesthesia Complication: No Fluid Hydration Crystalloid volume administer (ml): 30 Total IV fluid infused: 30 Progress Note Anesthesia document: Postop Eval 1 completed: Yes
--- NOTE | 2024-11-03 11:14 | POSTOPAN2_ITS ---
Anesthesia Postop Eval I Sum Postop Eval Completion status Anesthesia document: Postop Eval 1 completed: Yes Anesthesia Postop Eval I Summary Anesthesia Postop Eval I Summary: Anesthesia Postop Eval I: Assessment Summary Airway patent Yes 11/03/24 10:48 [email or web address] Spontaneous unlabored Yes 11/03/24 10:48 [email or web address] [email or web address] respirations Mental status Awake,Calm 11/03/24 10:48 [email or web address] nausea No 11/03/24 10:48 [email or web address] Vomiting No 11/03/24 10:48 [email or web address] Anesthesia Postop Eval I: Fluid Summary Crystalloid volume administer 30 11/03/24 10:48 [email or web address] (ml) Colloids volume administered ( ml) Blood Product volume administered (ml) Total IV fluid infused 30 11/03/24 10:48 [email or web address] Anesthesia Postop Eval I: Summary Notes Anesthesia Complication No 11/03/24 10:48 [email or web address] Anesthesia Complication Comment: Post-operative progress note Anesthesia: Postop Eval II Evaluation Mental status: Awake Pain Level: 0 nausea: No Vomiting: No
--- NOTE | 2024-11-03 11:14 | PCM.POSTANE2 ---
Anesthesia Postop Eval I Sum Postop Eval Completion status Anesthesia document: Postop Eval 1 completed: Yes Anesthesia Postop Eval I Summary Anesthesia Postop Eval I Summary: Anesthesia Postop Eval I: Assessment Summary Airway patent Yes 11/03/24 10:48 [email or web address] Spontaneous unlabored Yes 11/03/24 10:48 [email or web address] [email or web address] respirations Mental status Awake,Calm 11/03/24 10:48 [email or web address] [email or web address] nausea No 11/03/24 10:48 [email or web address] [email or web address] Vomiting No 11/03/24 10:48 [email or web address] [email or web address] Anesthesia Postop Eval I: Fluid Summary Crystalloid volume administer 30 11/03/24 10:48 [email or web address] [email or web address] (ml) Colloids volume administered ( ml) Blood Product volume administered (ml) Total IV fluid infused 30 11/03/24 10:48 [email or web address] [email or web address] Anesthesia Postop Eval I: Summary Notes Anesthesia Complication No 11/03/24 10:48 [email or web address] Anesthesia Complication Comment: Post-operative progress note Anesthesia: Postop Eval II Evaluation Mental status: Awake Pain Level: 0 nausea: No Vomiting: No
== END 2024-11-03 11:18 | disposition home or self-care (01) ==
LOC: EN 08:17 → AC 08:18
PROVIDERS: PCP Internal Medicine; Referring Provider Internal Medicine; Visit Provider Surgery
PROC: 0DJ08ZZ Inspection of Upper Intestinal Tract, Via Natural or Artificial Opening Endoscopic (ICD-10-PCS; CPT 43235; principal; 2024-11-03 09:40)
DX: K21.9 Gastro-esophageal reflux disease without esophagitis (principal); K22.89 Other specified disease of esophagus; E78.00 Pure hypercholesterolemia, unspecified; Z79.899 Other long term (current) drug therapy; Z87.891 Personal history of nicotine dependence
CPT/HCPCS: 43239; 88305; 88342; A4216; J2405

== ENCOUNTER → 2025-02-25 | Outpatient (CLI) | payer OTHER, SELFPAY ==
--- NOTE | 2025-02-25 11:55 | EMB_PTH ---
PATIENT: EDWARD PARADA [facility]: [facility]#:[id number] AGE/SX: 64/F ROOM: RE02/25/[address]: ELBA Gallegos : 1960 BED: DIS: 02/25/2025 SPEC #: [id number] RECD: 02/25/25 15:30 STATUS: MARSHALL REQ #: [id number] ELICEO: 02/25/25 11:[address]: Raquel Crump NP DEPT: SURGICAL PATHOLOGY RECD BY: Ivan Lawson ENTERED: 02/26/25 10:31 SP TYPE: ENDOM BX/C OT DR: Dr. Ann Dennison MD Tissues: A - Endometrium, NOS Procedures: Surgery Specimen Level IV HEADER OPERATION: Endometrial biopsy PRE-OP DIAGNOSIS: Postmenopausal bleeding TISSUE SUBMITTED: A- Endometrial lining MICROSCOPIC DIAGNOSIS A. Endometrium, PMB, biopsy: - Polypoid fragment of inactive endometrium with cystic atrophy. - Minute fragments of squamous and endocervical mucosa mixed with mucus. - Negative for hyperplasia or malignancy. MICROSCOPIC DESCRIPTION Slides are reviewed. GROSS DESCRIPTION A. Received in formalin labeled with the patient's name and date of is a 2.3 x 2.1 x 0.2 cm aggregate of mucoid material with flecks of morejon tissue. Entirely submitted in 1 cassette. AR 02/26/2025 CPT:32394
== END | disposition home or self-care (01) ==
LOC: LABSPEC 15:17
PROVIDERS: PCP Internal Medicine; Visit Provider Nurse Practitioner Women's Health
DX: R30.0 Dysuria (principal); N95.0 Postmenopausal bleeding
CPT/HCPCS: 87086; 88305

== ENCOUNTER → 2025-03-10 | Outpatient (CLI) | payer OTHER, SELFPAY ==
--- NOTE | 2025-03-10 13:06 | US_ITS ---
PROCEDURE: PELVIC W/ TRANSVAGINAL 03/10/2025 REASON FOR EXAM: POSTMENOPAUSAL BLEEDING TECHNIQUE: PELVIC W/ TRANSVAGINAL. Transabdominal and transvaginal grayscale, color and spectral Doppler pelvic ultrasound. COMPARISON: CT Abdomen and Pelvis w/Contrast, 10/13/2024 FINDINGS: ENDOMETRIUM: Homogeneous. Normal thickness of 3.2 mm. No abnormal endometrial color Doppler flow. UTERUS: Anteverted. Normal size measuring 7.0 x 4.2 x 3.3 cm with parenchymal heterogeneity. Linear echogenic structures at the fundus bilaterally, may represent intratubal contraceptive devices, which were present on the prior CT. No fibroid detected. CERVIX: Normal size and contour. RIGHT OVARY: Not visualized. LEFT OVARY: Normal size measuring 2.9 x 2.0 x 1.8 cm with anechoic 1.4 x 1.4 x 1.1 cm follicle. Normal blood flow. No adnexal mass. FREE FLUID: No free fluid. OTHER: Normal appearance of the urinary bladder. US/Pelvic w/ Transvaginal IMPRESSION: 1. No acute pelvic ultrasound abnormality. 2. Linear echogenic structures at the uterine fundus bilaterally, may represen t intratubal contraceptive devices, which were present on the prior CT. Clinical correlation suggested. Reading Location: [id number]
== END | disposition home or self-care (01) ==
PROVIDERS: PCP Internal Medicine; Referring Provider Nurse Practitioner Women's Health; Visit Provider Nurse Practitioner Women's Health
DX: N95.0 Postmenopausal bleeding (principal)
CPT/HCPCS: 76830; 76856

== ENCOUNTER 2025-07-26 22:47 | Emergency (ER) | payer OTHER, SELFPAY ==
[2025-07-26 22:48] VITALS: BP 134/90; PULSE 72; RESP 16; TEMP 36.3; O2SAT 98; BMI 46.4
[2025-07-26] MEDS: Lidocaine 2% (20 ml mdv) 20 ML Vial INFILT (23:19)
--- NOTE | 2025-07-26 23:41 | EX.ED.DYSGE1 ---
HPI History of Present Illness Chief Complaint: Fall Informant: patient and spouse/S.O. Narrative Narrative: Patient is a 65-year-old female with a past medical history of GERD anxiety and hyperlipidemia. She states that approximately 1 hour prior to arrival she was getting the bed ready for going to sleep when she tripped over the dog ramp and fell striking her face. She denies any loss of consciousness. She denies any history of bleeding disorder or blood thinner use. She states she was able to get back up following the fall and she noticed she sustained a laceration to her lip. With concern the wound may need close she presents for evaluation. [facility] Medical History (Updated 07/27/25 @ 05:[address] Atif Brooke, DO) History of hiatal hernia Heartburn Wears glasses Post-menopausal Anxiety Injury of head and neck Gastric reflux Former smoker History of irregular heartbeat High cholesterol Hiatal hernia Home Medications ?Medication ?Instructions ?Recorded ?Last Taken ?Type cholecalciferol (vitamin D3) 10 10 mcg PO DAILY 06/14/23 11/02/24 History mcg (400 unit) capsule magnesium 200 mg tablet 200 mg PO DAILY 06/14/23 11/01/24 History fluticasone propionate 50 1 spray intranasal DAILY PRN 03/20/24 Unknown History mcg/actuation nasal allergy symptoms spray,suspension (Flonase Allergy Relief) multivitamin with minerals 1 cap PO DAILY 03/20/24 11/02/24 History lactobacillus combination no.4 3 3,000 mmu cells PO QDAY 10/08/24 11/02/24 History billion cell capsule (Probiotic) rabeprazole 20 mg tablet,delayed 20 mg PO QDAY #90 tabs 03/05/25 Unknown Rx release (AcipHex) atorvastatin 20 mg tablet 20 mg PO DAILY #90 tabs 03/10/25 Unknown Rx citalopram 20 mg tablet (Celexa) 20 mg PO QDAY 05/29/25 Unknown History estradiol 0.01% (0.1 mg/gram) 1 appful vaginal SUWE 07/07/25 Unknown History vaginal cream amoxicillin 875 mg-potassium 1 tab PO BID 7 days #14 tabs 07/26/25 Unknown Rx clavulanate 125 mg tablet Allergy/AdvReac Type Severity Reaction Status Date / Time No Known Allergies Allergy Verified 07/26/25 22:51 Family History Mother Diabetes History of blood clots Anxiety Hypertension Father Diabetes Hypertension Pancreatic cancer Sister History of blood clots Lymphedema Grandmother Diabetes Sister GERD (gastroesophageal reflux disease) Surgical History (Updated 07/07/25 @ 10:10 by Rob Dahl) S/P laparoscopic cholecystectomy Hx of esophagogastroduodenoscopy Hx of colonoscopy Hx of tonsillectomy Encounter for Essure implantation History of removal of cyst Social History adopted: No household members: spouse 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 (2) pets and animals: dog(s) history of recent travel: No Smoking Status: Former smoker quit date: 08/20/94 pack-years: 5 Tobacco: How many years used: 5 Electronic Cigarette Use: not used alcohol intake: never substance use type: does not use diet: low carbohydrate caffeine: Yes (2) Type: coffee frequency: 3-4 times per week ni/latter day: Yeyo seatbelt use: always do you feel safe at home: Yes additional social history: - [place]- on disability ROS ROS ED Constitutional Constitutional ED: Denies chills or fever(s) Eyes Eyes: Denies blurry vision or change in vision ENT ENT ED: Reports other Details: Positive upper lip laceration Cardiovascular Cardiovascular: Reports other Details: Negative syncope ; Denies chest pain, palpitations or racing heartbeat Respiratory/Chest Respiratory/Chest: Denies cough or dyspnea Gastrointestinal Gastrointestinal: Denies abdominal pain, diarrhea, nausea or vomiting Musculoskeletal Musculoskeletal: Denies back pain or neck pain Integumentary Reports other Details: Positive lip laceration Neurologic Neurologic: Denies headache(s) Hematologic/Lymphatic Hematologic/Lymphatic: Denies easy bleeding or easy bruising EXAM Physical Exam Const Vital Signs: 07/26/25 22:48 07/26/25 23:07 Temperature 97.4 F L Temperature Source Temporal Pulse Rate 72 Respiratory Rate 16 Respiratory Effort Normal Respiratory Depth Normal Respiratory Pattern Normal Blood Pressure 134/90 H Blood Pressure Mean 104 Pulse Ox 98 Oxygen Delivery Method Room Air Room Air Positive well nourished and well developed General Appearance ED: well developed HEENT HEENT Narrative: There is a superficial abrasion with small 1 x 2 cm hematoma and faint amount of ecchymosis across the left zygomatic arch/cheek. No obvious bony deformity No subcutaneous emphysema No signs of depressed or basilar skull fracture No septal hematoma Patient has a subcutaneous layer deep 2 cm jagged laceration to the midportion of the upper lip. There is mild venous bleeding. No retained foreign object. No dental fracture noted No signs of jaw dislocation or fracture Eyes PERRL and EOMs intact bilaterally Eyes Narrative: No hyphema noted Neck supple Neck Narrative: No bony deformity or step-off of the cervical spine No midline tenderness to palpation Patient can move her neck in all directions without pain Resp normal respiratory effort and clear to auscultation bilaterally Cardio regular rate and regular rhythm Extremity normal to inspection Extremity Narrative: Pelvis is stable there is no shortening or external rotation of either lower extremity No sign of long bone injury such as bony deformity or joint effusion All compartments are soft and compressible going against compartment syndrome Neuro oriented x3, CN's II-XII intact bilaterally and no sensory deficits noted Sensorium / Orientation: alert Motor Exam: strength 5/5 throughout Psych mental status grossly normal Skin Skin Narrative: Upper lip laceration as documented above MDM MDM MDM Narrative Medical decision making narrative: Patient reported a mechanical fall and therefore I felt no need for cardiac or syncope workup. Patient had a low mechanism of injury and she is not on blood thinners nor does she have a bleeding disorder and therefore my concern for traumatic subarachnoid or subdural hemorrhage is low and I feel no need for a CT scan of the head. Also as she does not have signs of long bone injury such as bony deformity or joint effusion and is moving all extremities out difficulty concern for fracture is low and I feel no need for plain film x-rays. The patient's lip laceration does not cross the vermilion border but it is gaping and will have difficulty healing if not closed. Therefore the patient had her wound sutured as documented below and following this as vitals are stable and neurologic exam is normal and she does not have any other signs of trauma she is safe for discharge Patient had the upper lip cleaned with chlorhexidine. It was anesthetized using 2 mL of 2% lidocaine without epinephrine and local fashion. Then seven 5-0 Vicryl sutures were placed in simple interrupted fashion. This brought the wound together well with good approximation. Patient tolerated the procedure well without complication. History & Record Review Discussion w/independent historian: Patient and Significant other Discharge Plan Triage Chief Complaint: Fall ED Provider: Atif Brooke Dx/Rx/DC Orders Clinical Impression: Laceration of lip, Accidental fall, GERD (gastroesophageal reflux disease), Hyperlipidemia Instructions: ED Laceration, Lip or Mouth Prescriptions: New amoxicillin-pot clavulanate 875-125 mg tablet 1 tab PO BID 7 Days Qty: 14 0RF No Action magnesium 200 mg tablet 200 mg PO DAILY cholecalciferol (vitamin D3) 10 mcg (400 unit) capsule 10 mcg PO DAILY fluticasone propionate [Flonase Allergy Relief] 50 mcg/actuation spray,suspension 1 spray intranasal DAILY PRN (Reason: allergy symptoms) Rx Instructions: administer into each nostril multivitamin with minerals Capsule 1 cap PO DAILY Probiotic 3 billion cell capsule 3,000 mmu cells PO QDAY Rx Instructions: administer with a meal citalopram [Celexa] 20 mg tablet 20 mg PO QDAY estradiol 0.01 % (0.1 mg/gram) cream 1 appful vaginal SUWE rabeprazole [AcipHex] 20 mg tablet,delayed release (DR/EC) 20 mg PO QDAY Qty: 90 1RF atorvastatin 20 mg tablet 20 mg PO DAILY Qty: 90 1RF Primary Care Provider: Ann Dennison Referrals: Ann Dennison MD [Primary Care Provider, Internal Medicine] Activity Restrictions/Additional Instructions: The sutures placed in your lip should dissolve spontaneously over the next 1 to 2 weeks. If you develop recurrent swelling redness increased pain or discharge or have concern there is a secondary infection then begin the Augmentin/antibiotic that was prescribed from the ER. Follow-up with your family doctor for repeat evaluation and return to the ER should you have any further concerns Print Language: Spanish Disposition Disposition: Home, Self Care Discharge Date/Time: 07/26/25 23:52
--- OUTSIDE RECORDS SUMMARY | 2025-07-26 23:47 | XMS RPT_ITS | CCD ---
Author Organization [facility] Team Providers Care Diabetes Nurse Name Role Phone RUTH TECHNICAL IMPLEMENTATION LEAD-CARE TEAM COORDINATOR SCHEDULER, RUPA S Primary Care Physicia n Benjamin PT, Viviane Unavailable Unavailable DINO TOMLINSON, DR DE ANDA Attending Unavailabl e RUTH TECHNICAL IMPLEMENTATION LEAD-CARE TEAM COORDINATOR SCHEDULER, RUPA S Primary Care Unava ilable RUTH TECHNICAL IMPLEMENTATION LEAD-CARE TEAM COORDINATOR SCHEDULER, RUPA S Attending Unava ilable RUTH TECHNICAL IMPLEMENTATION LEAD-CARE TEAM COORDINATOR SCHEDULER, RUPA S Primary Care Unava ilable RUTH TECHNICAL IMPLEMENTATION LEAD-CARE TEAM COORDINATOR SCHEDULER, RUPA S Attending Unava ilable RUTH TECHNICAL IMPLEMENTATION LEAD-CARE TEAM COORDINATOR SCHEDULER, RUPA S Primary Care Unava ilable RUTH TECHNICAL IMPLEMENTATION LEAD-CARE TEAM COORDINATOR SCHEDULER, RUPA S Referring Unava ilable ROCK TECHNICAL IMPLEMENTATION LEAD-CARE TEAM COORDINATOR SCHEDULER, LERICA Attending Unavailabl e RUTH TECHNICAL IMPLEMENTATION LEAD-CARE TEAM COORDINATOR SCHEDULER, RUPA S Primary Care Unava ilable RUTH TECHNICAL IMPLEMENTATION LEAD-CARE TEAM COORDINATOR SCHEDULER, RUPA S Attending Unava ilable RUHT TECHNICAL IMPLEMENTATION LEAD-CARE TEAM COORDINATOR SCHEDULER, RUPA S Primary Care Unava ilable DINO TOMLINSON, DR DE ANDA Attending Unavailabl e RUTH TECHNICAL IMPLEMENTATION LEAD-CARE TEAM COORDINATOR SCHEDULER, RUPA S Primary Care Unava ilable [employer] ANTENNA ENGINEER, ANTENNA ENGINEER-C Rupa Primary Care Provider Ruth ANTENNA ENGINEER, ANTENNA ENGINEER-C Rupa Referring Provider [phone] Dr. Ann Dennison Attending Provider [phone] Dr. Ann Dennison Primary Care Provider Dr. Ann Dennison Referring Provider [phone] Dr. Alcira Vizcarra Attending Provider [phone] Dr. Alcira Vizcarra Referring Provider [phone] Dr. Alcira Vizcarra Other Provider Dr. Ann Dennison Primary Care Provider Dr. Ann Dennison Referring Provider [phone] Dr. Alcira Vizcarra Attending Provider KEYLA Nelson Attending Provider Jesi TOMLINSON, Dr. Juarez Primary Care Provider [phone] Jesi TOMLINSON, Dr. Juarez Attending Provider Jesi TOMLINSON, Dr. Juarez Referring Provider Carmita TOMLINSON, Dr. Eli Attending Provider Carmita TOMLINSON, Dr. Eli Other [facility] Primary Care Unavailable YUDY SMITH Attending Unavailable Jesi TOMLINSON, Dr. Juarez Primary Care Provider [phone] Jesi TOMLINSON, Dr. Juarez Referring Provider Dr. Alcira Vizcarra MD Attending Provider Ann KATE-CBirgit Attending Provider Jesi TOMLINSON, Dr. Juarez Attending Provider Theron ANTENNA ENGINEER-CRaquel Attending Provider Jesi TOMLINSON, Dr. Juarez Primary Care Provider [phone] Dr. Ann Dennison MD Referring Provider Theron KATE-CRaquel Referring Provider Dr. Ann Dennison MD Primary Care Provider [phone] Dr. Ann Dennison MD Referring Provider Jesi TOMLINSON, Dr. Juarez Primary Care Physician [phone] Jesi TOMLINSON, Dr. Juarez Attending Physician Theron ANTENNA ENGINEER-CRaquel Attending Physician Dr. Jannette Garcia DO Attending Physician [place], Ann Primary Care Unavailable Theron ANTENNA ENGINEER, Raquel Attending Unavailable Jesi, Ann Primary Care Unavailable Jannette Garcia Attending Unavailabl e [place], Ann Referring Unavailable Jesi, Ann Primary Care Unavailable Jannette Garcia Attending Unavailabl e Jesi, Ann Referring Unavailable Jesi, Ann Primary Care Unavailable Birgit Juarez Attending Unavailable Jesi, Ann Referring Unavailable Jesi, Ann Attending Unavailable Jesi, Ann Primary Care Unavailable Ray[place], Ann Primary Care Unavailable Jesi, Ann Referring Unavailable [place] ANTENNA ENGINEER, Raquel Attending Unavailable Jesi, Ann Attending Unavailable Jesi, Ann Referring Unavailable Ray[place], Ann Primary Care Unavailable Jesi, Ann Attending Unavailable [place], Ann Referring Unavailable Jesi, Ann Primary Care Unavailable Jesi, Ann Attending Unavailable Jesi, Ann Primary Care Unavailable Jesi, Ann Referring Unavailable [place], Ann Primary Care Unavailable Tiffanie Nelson Referring Unavailable Tiffanie Nelson Attending Unavailable Robotham, Alcira Attending Unavailable Jesi, Ann Primary Care Unavailable Jesi, Ann Referring Unavailable Ejsi, Ann Referring Unavailable Ray[place], Ann Primary Care Unavailable Robotham, Alcira Attending Unavailable Jesi, Ann Attending Unavailable [place], Ann Primary Care Unavailable Ray[place], Ann Referring Unavailable Jesi, Ann Attending Unavailable Jesi, Ann Referring Unavailable Jesi, Ann Primary Care Unavailable Ray[place], Ann Primary Care Unavailable Jesi, Ann Referring Unavailable [place] ANTENNA ENGINEER, Raquel Attending Unavailable [place], Ann Primary Care Unavailable [place], Ann Referring Unavailable Jannette Garcia Attending Unavailabl e Robotham, Alcira Attending Unavailable Robotham, Alcira Consulting Unavailable Jesi, Ann Referring Unavailable Jesi, Ann Primary Care Unavailable Jesi, Ann Primary Care Unavailable [place] ANTENNA ENGINEER, Raquel Attending Unavailable [place] ANTENNA ENGINEER, Raquel Referring Unavailable Medications Current Medications Medication Drug Class(es) Dates Sig (Normalized) Sig (Original) [id number] 200 actuat albuterol 0.09 mg/actuat metered dose inhaler (8 sources) beta2-Adrenergic Agonist Start: 11-20-2019 take 1 puff(s) by inhalation every four hours as needed for wheezing ProAir HFA MDI (90 mcg/inh) inhalation aerosol 1 puff(s), Inhalation, q4h, PRN as needed for wheezing, # 8.5 gram(s), 3 Refill(s), Pharmacy: [facility], 158, cm, 11/20/19 8:29:00 EDT, Height, kg, 11/20/19 8:29:00 EDT, Dosing Weight Start Date: 11/20/19 Status: Ordered Start: 11-20-2019 take 1 puff(s) by in halation every four hours as needed for wheezing ProAir HFA MDI (90 mcg/inh) inhalation aerosol 1 puff(s), Inhalation, q4h, PRN as needed for wheezing, # 8.5 gram(s), 3 Refill(s), Pharmacy: [facility], 158, cm, 11/20/19 8:29:00 EDT, Height, kg, 11/20/19 8:29:00 EDT, Dosing Weight Start Date: 11/20/19 Status: Ordered amoxicillin 875 mg oral tablet (1 source) Penicillin-class Antibacterial Start: 02-05-2025 End: 02-12-2025 take 1 tablet by mouth twice daily amoxicillin (AMOXIL) 875 mg tablet Indications: Other acute nonsuppurative otitis media of right ear, recurrence not specified Take 1 tablet by mouth two times a day for 7 days. 14 tablet 02/05/2025 02/12/2025 Active atorvastatin 20 mg oral tablet (20 sources) HMG-CoA Reductase Inhibitor Start: 09-29-2024 End: 03-10-2025 take 1 tablet by mouth once daily Start: 03-08-2023 End: 09-02-2024 take 1 tablet by mouth once daily Atorvastatin 20 mg tablet Discontinued 20 mg PO DAILY 90 1 January 31, 2024 12:45pm September 02, 2024 3:28pm cholecalciferol 0.01 mg oral capsule (10 sources) Vitamin D Start: 06-14-2023 take 1 capsule by mouth once daily citalopram 20 mg oral tablet (20 sources) Serotonin Reuptake Inhibitor Start: 05-29-2025 take 1 tablet by mouth once daily Start: 09-22-2024 End: 05-29-2025 Citalopram (Celexa) 20 mg ta blet Discontinued 30 mg PO daily 135 March 02, 2025 2:37pm May 29, 2025 1:48pm Start: 09-02-2024 End: 09-22-2024 Citalopram 20 mg tablet Disc ontinued 20 mg PO DAILY 90 September 02, 2024 3:58pm September 22, 2024 3:02pm Take in combination with 10mg for total of 30mg. Start: 03-20-2024 End: 09-02-2024 take 1 tablet by mouth once daily Citalopram 10 mg tablet Discontinued 10 mg PO DAILY 90 March 20, 2024 12:00am September 02, 2024 3:28pm Start: 02-21-2023 End: 09-02-2024 take 1 tablet by mouth once daily Citalopram 20 mg tablet Discontinued 20 mg PO DAILY 90 0 July 09, 2024 2:23pm September 02, 2024 4:23pm Start: 05-24-2021 End: 02-11-2023 citalopram 20 mg oral tablet Dose : 20 mg = 1 tab(s), Oral, qDay, # 90 tab(s), 3 Refill(s), Pharmacy: [id number], 157.5, cm, 12/07/21 12:34:00 EDT, Height, kg, 12/07/21 12:34:00 EDT, Dosing Weight Start Date: 02/16/22 Stop Date: 02/11/23 Status: Ordered Ergocalciferol (1 source) Provitamin D2 Compound Start: 05-24-2021 ergocalciferol 50,000 intl units (1.25 mg) oral capsule Dose : 50,000 International_Unit = 1 cap(s), Oral, qWeek, # 5 cap(s), 11 Refill(s), Pharmacy: [id number], 158, cm, 05/24/21 7:58:00 EDT, Height, kg, 05/24/21 7:58:00 EDT, Dosing Weight Start Date: 05/24/21 Status: Ordered escitalopram 20 mg oral tablet (2 sources) Serotonin Reuptake Inhibitor Start: 10-19-2021 End: 11-03-2022 escitalopram 20 mg oral tablet Dose : 20 mg = 1 tab(s), Oral, qDay, # 90 tab(s), 3 Refill(s), Pharmacy: [facility], 158, cm, 11/08/21 7:29:00 EDT, Height, kg, 11/08/21 7:29:00 EDT, Dosing Weight Start Date: 11/08/21 Stop Date: 11/03/22 Status: Ordered estradiol 0.1 mg/ml vaginal cream (3 sources) Estrogen Start: 03-16-2025 Flonase 50 mcg/inh nasal spray (3 sources) Start: 05-24-2021 End: 05-19-2022 take 50 ug nasal route twice daily Flonase 50 mcg/inh nasal spray 50 mcg, Nostril, each, BID, # 16 gram(s), 3 Refill(s), Pharmacy: [facility], 158, cm, 05/24/21 7:58:00 EDT, Height, kg, 05/24/21 7:58:00 EDT, Dosing Weight Start Date: 05/24/21 Stop Date: 05/19/22 Status: Ordered fluticasone propionate 0.05 mg/actuat metered dose nasal spray (19 sources) Corticosteroid Start: 03-06-2024 End: 03-20-2024 take 50 ug nasal route once daily as needed Start: 05-24-2021 End: 05-19-2022 take 50 ug nasal route twice daily Flonase 50 mcg/inh nasal spray 50 mcg, Nostril, each, BID, # 16 gram(s), 3 Refill(s), Pharmacy: [facility], 158, cm, 05/24/21 7:58:00 EDT, Height, kg, 05/24/21 7:58:00 EDT, Dosing Weight Start Date: 05/24/21 Stop Date: 05/19/22 Status: Ordered Lactobacillus Combination No .4 (Probiotic) 3 billion cell capsule (7 sources) Start: 10-08-2024 take 3 capsules by m outh once daily Start: 10-08-2024 take 3 capsules by m outh once daily Lactobacillus Combination No.4 (Probiotic) 3 billion cell capsule Active 3000 NMA PO daily October 08, 2024 1:00am administer with a meal Magnesium (10 sources) Start: 06-14-2023 take 1 tablet by mouth once da angelia Start: 06-14-2023 take 1 tablet by agatha th once daily Magnesium 200 mg tablet Active 200 mg PO DAILY June 14, 2023 12:00am Start: 06-14-2023 take 200 mg by mouth once adelfo y Magnesium Active 200 MG PO DAILY June 14, 2023 12:00am Start: 06-14-2023 take 200 mg by mouth once adelfo y Magnesium Active 200 MG PO DAILY June 13, 2023 11:00pm Magnesium Aspartate (5 sources) Start: 05-16-2022 take 1 mg by mouth twice daily magnesium aspartate mg =, Oral, BID, 72mg, 0 Refill(s) Start Date: 05/16/22 Status: Ordered melatonin 10 mg oral capsule (7 sources) Start: 09-02-2024 take 1 capsule by mouth at bedtime as needed for sleep Multivitamin preparation (3 sources) Start: 05-16-2022 take 1 tablet by mouth once daily Multivitamin Dose = 1 tab(s), Oral, Daily, 0 Refill(s) Start Date: 05/16/22 Status: Ordered Multivitamin With Minerals capsule (7 sources) Start: 03-20-2024 Start: 03-20-2024 Multivitamin W ith Minerals capsule Active 1 NMA PO DAILY March 20, 2024 12:00am omeprazole 20 mg oral delayed release tablet (3 sources) Start: 05-24-2021 End: 05-19-2022 take 1 tablet by mouth once daily omeprazole 20 mg oral delayed release tablet Dose : 20 mg =, Oral, qDay, # 90 cap(s), 3 Refill(s), Pharmacy: [facility], 158, cm, 05/24/21 7:58:00 EDT, Height, kg, 05/24/21 7:58:00 EDT, Dosing Weight Start Date: 05/24/21 Stop Date: 05/19/22 Status: Ordered predniSONE 20 mg oral tablet (6 sources) Start: 02-17-2025 take 1 tablet by mouth once daily RABEprazole sodium 20 mg delayed release oral tablet (9 sources) Proton Pump Inhibitor Start: 02-17-2025 End: 03-05-2025 take 1 tablet by mouth once daily sucralfate 1000 mg oral tablet (20 sources) Aluminum Complex Start: 01-23-2025 take 1 tablet by mouth 1 hour(s) before bedtime sucralfate (CARAFATE) 1 gram tablet TAKE 1 TABLET BY MOUTH 1 HOUR BEFORE MEALS AND AT BEDTIME 01/23/2025 Active Start: 10-08-2024 End: 01-23-2025 take 1 tablet by mouth once at bedtime Sucralfate 1 gram tablet Discontinued 1 g PO before meals and at bedtime 56 0 January 05, 2025 8:18am January 23, 2025 12:49pm Take an hour before meals and at bedtime Vitamin B Complex (3 sources) Start: 06-14-2023 take 1 capsule by mo uth once daily Vitamin B Complex Active 1 CAP PO DAILY June 14, 2023 12:00am Start: 06-14-2023 take 1 capsule by mouth once d aily Vitamin B Complex Active 1 CAP PO DAILY June 13, 2023 11:00pm Vitamin B Complex 100 (2 sources) Start: 03-07-2023 Vitamin B Comp chap[place]ito 100 0 Refill(s) Start Date: 03/07/23 Status: Ordered Vitamin D3 125 mcg (5000 int l units) oral capsule (5 sources) Start: 05-16-2022 Vitamin D3 125 mcg (5000 intl units) oral capsule Dose : 125 mcg = 1 cap(s), Oral, qDay, 0 Refill(s) Start Date: 05/16/22 Status: Ordered Completed/Discontinued Medications Medication Drug Class(es) Dates Sig (Normalized) Sig (Original) amoxicillin 875 mg / clavulanate 125 mg oral tablet (7 sources) Penicillin-class Antibacterial Start: 03-06-2024 End: 03-16-2024 Amoxicillin-Pot Clavulanate 875-125 mg tablet Discontinued 1 {tbl} PO Q12H 20 10 0 March 06, 2024 12:00am March 15, 2024 12:00am March 16, 2024 12:04am Acute sinusitis, unspecified 24 hr buPROPion hydrochloride 150 mg extended release oral tablet (20 sources) Aminoketone Start: 05-01-2024 End: 07-09-2024 take 1 tablet by mouth once daily in the morning Bupropion Hcl (Wellbutrin Xl) 150 mg tablet extended release 24 hr Discontinued 150 mg PO EVERY MORNING 90 0 June 04, 2024 11:11am July 09, 2024 2:23pm lactobacillus acidophilus 1.5 mg oral capsule (9 sources) Start: 07-19-2023 End: 03-20-2024 Lactobacillus Acidophilus (Probiotic Acidophilus) 250 million cell capsule Discontinued 500 NMA PO DAILY July 19, 2023 1:00am March 20, 2024 9:27am omeprazole 40 mg delayed release oral capsule (20 sources) Proton Pump Inhibitor Start: 09-22-2024 End: 09-22-2024 take 1 capsule by mouth once daily Omeprazole 40 mg capsule,delayed release(DR/EC) Discontinued 40 mg PO daily September 22, 2024 1:00am September 22, 2024 3:26pm Start: 11-01-2023 End: 09-22-2024 take 1 capsule by mouth once daily Omeprazole 20 mg capsule,delayed release(DR/EC) Discontinued 20 mg PO DAILY August 25, 2024 1:28pm September 22, 2024 3:01pm Start: 05-18-2023 End: 11-01-2023 take 2 capsules by mouth once daily Omeprazole 20 mg capsule,delayed release(DR/EC) Discontinued 40 mg PO DAILY May 18, 2023 12:00am November 01, 2023 3:17pm Start: 05-18-2023 End: 11-01-2023 take 40 mg by mouth once daily Omeprazole Discontinued 40 MG PO DAILY May 18, 2023 12:00am November 01, 2023 3:17pm Start: 05-18-2023 take 20 mg by mouth once daily Omeprazole Active 20 MG PO DAILY May 17, 2023 11:00pm Start: 03-08-2023 omeprazole 20 mg oral delayed release capsule Dose : 20 mg = 1 cap(s), Oral, qDay, # 90 cap(s), 3 Refill(s), Pharmacy: [facility], 158, cm, 03/07/23 9:27:00 EDT, Height, kg, 03/07/23 9:27:00 EDT, Dosing Weight Start Date: 03/08/23 Status: Ordered Start: 05-24-2021 End: 05-19-2022 take 1 tablet by mouth once daily omeprazole 20 mg oral delayed release tablet Dose : 20 mg =, Oral, qDay, # 90 cap(s), 3 Refill(s), Pharmacy: [facility], 158, cm, 05/24/21 7:58:00 EDT, Height, kg, 05/24/21 7:58:00 EDT, Dosing Weight Start Date: 05/24/21 Stop Date: 05/19/22 Status: Ordered ondansetron 4 mg disintegrating oral tablet (7 sources) Serotonin-3 Receptor Antagonist Start: 09-02-2024 End: 12-10-2024 take 1 tablet by mouth every eight hours as needed for nausea and vomiting Ondansetron 4 mg tablet,disintegrating Discontinued 4 mg PO Q8H as needed for nausea and vomiting September 02, 2024 1:00am December 10, 2024 1:03pm pantoprazole 40 mg delayed release oral tablet (16 sources) Proton Pump Inhibitor Start: 09-22-2024 End: 03-05-2025 take 1 tablet by mouth once daily Pantoprazole (Protonix) 40 mg tablet,delayed release (DR/EC) Discontinued 40 mg PO daily 90 September 29, 2024 10:55am March 05, 2025 12:45pm On Hold: Order Changed Tirzepatide (Weight Loss) (7 sources) Start: 04-15-2024 End: 09-02-2024 Tirzepatide (Weight Loss) (Zepbound) 2.5 mg/0.5 mL pen injector Discontinued 2.5 mg SC EVERY WEEK April 15, 2024 12:00am September 02, 2024 3:28pm for 4 weeks Start: 04-15-2024 End: 09-02-2024 Tirzepatide (Weight Loss) (Z epbound) 2.5 mg/0.5 mL pen injector Discontinued 2.5 mg SC EVERY WEEK 2 April 15, 2024 12:00am September 02, 2024 3:28pm for 4 weeks traMADol hydrochloride 50 mg oral tablet (9 sources) Opioid Agonist Start: 07-23-2023 End: 08-08-2023 take 1 tablet by mouth every six hours as needed for pain Tramadol 50 mg tablet Discontinued 50 mg PO EVERY 6 HOURS as needed for pain 14 0 July 23, 2023 1:00am August 08, 2023 3:30pm Postoperative pain Other acute postprocedural pain Vitamin B Complex capsule (7 sources) Start: 06-14-2023 End: 03-20-2024 Vitamin B Complex capsule Discontinued 1 NMA PO DAILY June 14, 2023 12:00am March 20, 2024 9:26am Problems Active Problems Problem Classification Problem Date Documented Da te Episodic/Chronic Abdominal pain (20 sources) Epigastric pain; Translations: [Right upper quadrant pain] Onset: 5 03-07-2023 Episodic Comment on above: essure devices in pl [place] Administrative/social admission (2 sources) Persons encountering health services in other specified circumstances; Translations: [Other reasons for seeking consultation] 06-14-2023 Episodic Anxiety disorders (20 sources) Anxiety; Translations: [Anxiety disorder, unspecified] Onset: 5 12-11-2013 Chronic Comment on above: ON MED Asthma (8 sources) Reactive airway disease 10-08-2019 Chronic Biliary tract disease (2 sources) Biliary calculus; Translations: [Calculus of gallbladder without cholecystitis without obstruction] 07-16-2023 Episodic Cardiac dysrhythmias (7 sources) Palpitations 10-19-2021 Episodic Disorders of lipid metabolism (20 sources) Mixed hyperlipidemia; Translations: [Mixed hyperlipidemia] Onset: 5 10-08-2019 Chronic Comment on above: ON MED Disorders of teeth and jaw (15 sources) Temporomandibular joint disorder; Translations: [Infection of tooth] 10-08-2019 Episodic Esophageal disorders (20 sources) Gastroesophageal reflux disease; Translations: [Gastro-esophageal reflux disease without esophagitis] Onset: 5 12-11-2013 Chronic Comment on above: CONTROLLED WITH MED Esophageal disorders (1 source) Esophageal disorders Headache; including migraine (7 sources) Headache; Translations: [Headache] 03-20-2024 Episodic Immunizations and screening for infectious disease (2 sources) Encounter for immunization; Translations: [Need for prophylactic vaccination and inoculation against unspecified single disease] 06-14-2023 Episodic Menopausal disorders (20 sources) Atrophic vaginitis; Translations: [Postmenopausal atrophic vaginitis] Onset: 5 02-25-2025 Chronic Comment on above: consider estradiol c ream after EMB results EMB, US pending estradiol cream EMB neg. <4mm lining on US. Nonspecific chest pain (15 sources) Chest wall pain; Translations: [Chest pain] 11-08-2021 Episodic Nutritional deficiencies (17 sources) Vitamin D deficiency; Translations: [Vitamin D deficiency, unspecified] Onset: 5 05-24-2021 Chronic Other aftercare (2 sources) Patient encounter status; Translations: [Encounter for adjustment and management of other implanted devices] 05-29-2025 Chronic Other aftercare (1 source) Encounter for adjustment and management of other implanted devices; Translations: [Encounter for adjustment and management of other implanted devices] Onset: Chronic Other connective tissue disease (1 source) Musculoskeletal symptom; Translations: [Other symptoms and signs involving the musculoskeletal system] Episodic Other connective tissue disease (6 sources) Pain in finger; Translations: [Pain in right finger(s)] 04-15-2024 Episodic Other connective tissue disease (1 source) Pain in finger of right hand; Translations: [Pain in right finger(s)] 04-15-2024 Episodic Other female genital disorders (4 sources) Burning sensation of vagina; Translations: [Other specified conditions associated with female genital organs and menstrual cycle] 02-25-2025 Episodic Other gastrointestinal disorders (2 sources) Diarrhea 03-07-2023 Episodic Other lower respiratory disease (8 sources) Snoring 11-20-2019 Episodic Other lower respiratory disease (6 sources) Orthopnea 11-08-2021 Episodic Other nervous system disorders (6 sources) Paresthesia of foot 05-24-2021 Episodic Other nervous system disorders (8 sources) Numbness of face; Translations: [Anesthesia of skin] 03-20-2024 Episodic Other nervous system disorders (5 sources) Tremor; Translations: [Tremor, unspecified] 02-17-2025 Episodic Other non-traumatic joint disorders (1 source) Finger joint locking; Translations: [Other specific joint derangements of unspecified hand, not elsewhere classified] 09-02-2024 Chronic Other non-traumatic joint disorders (6 sources) Knee pain 11-01-2020 Episodic Other non-traumatic joint disorders (3 sources) Shoulder pain 05-16-2022 Episodic Other non-traumatic joint disorders (1 source) Pain of right shoulder joint; Translations: [Pain in right shoulder] Episodic Other nutritional; endocrine; and metabolic disorders (7 sources) Obesity; Translations: [Obesity, unspecified] 04-15-2024 Chronic Other upper respiratory disease (7 sources) Other specified disorders of nose and nasal sinuses; Translations: [Sinus pressure] 04-15-2024 Episodic Other upper respiratory infections (10 sources) Acute maxillary sinusitis; Translations: [Acute pharyngitis] Onset: 5 12-07-2021 Episodic Otitis media and related conditions (3 sources) Acute secretory otitis media; Translations: [Other acute nonsuppurative otitis media, right ear] Onset: 5 02-04-2025 Episodic Residual codes; unclassified (1 source) Acquired absence of other specified parts of digestive tract; Translations: [Other postprocedural status] 08-08-2023 Episodic Residual codes; unclassified (1 source) Family history of malignant neoplasm of pancreas; Translations: [Family history of malignant neoplasm of digestive organs] 09-22-2024 Episodic Unclassified (8 sources) Patient encounter status 11-20-2019 Unclassified (1 source) Contact with and (suspected) exposure to COVID-19; Translations: [Contact with and (suspected) exposure to COVID-19] Onset: Viral infection (1 source) Viral disease; Translations: [Viral infection, unspecified] 09-02-2024 Episodic Past or Other Problems Problem Classification Problem Date Documented Da te Episodic/Chronic Genitourinary symptoms and ill-defined conditions (1 source) Dysuria; Translations: [Dysuria] Onset: 03-03-2025 Episodic Nausea and vomiting (1 source) Nausea with vomiting, unspecified; Translations: [Nausea with vomiting, unspecified] Onset: 09-02-2024 Episodic Other screening for suspected conditions (not mental disorders or infectious disease) (5 sources) Encounter for screening for malignant neoplasm of cervix; Translations: [Screening for malignant neoplasms of cervix] Onset: 12-10-2024 06-14-2023 Episodic Residual codes; unclassified (1 source) Family history of malignant neoplasm of digestive organs; Translations: [Family history of malignant neoplasm of digestive organs] Onset: 09-22-2024 Episodic Unclassified (1 source) Contact with and (suspected) exposure to COVID-19; Translations: [Contact with and (suspected) exposure to COVID-19] Onset: 06-27-2022 Results Test Name Value Interpretation Reference Range Facility Retirement Plan Specialist Office Visit Reporton 06-29-2025 Retirement Plan Specialist Office Visit Report [facility] [address], [address] [place] [address] OFFICE VISIT Date of Service: 06/29/25 MR#: [id number] Acct: [id number] Name: EDWARD PARADA DIAMANTE Rep #: [id number] : 1960 Provider: Dr. 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 Is patient in pain?: No Allergies No Known Allergies Allergy (Verified 06/29/25 07:54) Medications ???Medication ???Instructions ???Recorded ???Confirmed ???Type cholecalciferol (vitamin D3) 10 10 mcg PO DAILY 06/14/23 06/29/25 History mcg (400 unit) capsule magnesium 200 mg tablet 200 mg PO DAILY 06/14/23 06/29/25 History fluticasone propionate 50 1 spray intranasal DAILY PRN 03/2006/29/25 History mcg/actuation nasal allergy symptoms spray,suspension (Flonase Allergy Relief) multivitamin with minerals 1 cap PO DAILY 03/20/24 06/29/25 H istory melatonin 10 mg capsule 10 mg PO HS PRN sleep 09/02/2406/13 History lactobacillus combination no.4 3 3,000 mmu cells PO QDAY 10/08/24 1 08/29/24 History billion cell capsule (Probiotic) sucralfate 1 gram tablet 1 g PO QACHS #56 tabs 01/23/2506/13 Rx prednisone 20 mg tablet 20 mg PO QDAY #5 tabs 02/17/2506/13 Rx rabeprazole 20 mg tablet,delayed 20 mg PO QDAY #90 tabs 03/05/25 Rx release (AcipHex) atorvastatin 20 mg tablet 20 mg PO DAILY #90 tabs 03/10/25 1 08/29/24 Rx estradiol 0.01% (0.1 mg/gram) See Rx Instructions vaginal 06/29/25 Rx vaginal cream .COMPLEX #42.5 grams citalopram 20 mg tablet (Celexa) 20 mg PO QDAY 05/29/25 06/29/25 Hi story Is last menstrual period known: No Post menopausal: Yes Patient : No : No PFSH Medical History History of hiatal hernia Heartburn Wears glasses Post-menopausal Anxiety Injury of head and neck Gastric reflux Former smoker History of irregular heartbeat High cholesterol Hiatal hernia Surgical History History of salpingectomy S/P laparoscopic cholecystectomy Hx of esophagogastroduodenoscopy Hx of colonoscopy Hx of tonsillectomy Encounter for Essure implantation History of removal of cyst Family History Mother Diabetes History of blood clots Anxiety Hypertension Father Diabetes Hypertension Pancreatic cancer Sister History of blood clots Lymphedema Grandmother Diabetes Sister GERD (gastroesophageal reflux disease) Social History adopted: No household members: spouse 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 (2) pets and animals: dog(s) history of recent travel: No Smoking Status: Former smoker quit date: 08/20/94 pack-years: 5 Tobacco: How many years used: 5 Electronic Cigarette Use: not used alcohol intake: never substance use type: does not use diet: low carbohydrate caffeine: Yes (2) Type: coffee frequency: 3-4 times per week ni/episcopal: Mosque seatbelt use: always do you feel safe at home: Yes additional social history: - Lindsay- on disability HPI PRE OP Details: The patient is a 66-year-old female with a history of Essure placement presenting for preop evaluation to remove the essure coils due to ongoing pelvic pain. Pelvic Pain - Essure placement in 2005. - Reports onset of pelvic pain in November, described as cramping and sharp stabbing pains, primarily on the right side. - Pain is constant but had a brief period of resolution before resuming last week. - Associated with bleeding for about six weeks at the onset of pain, but no bleeding since. - Ultrasound and CT scan show linear echogenic structures in the uterine fundus bilaterally, likely representing intratubal contraceptive devices; no fibroids or thickened endometrial lining noted. Anxiety - History of anxiety, currently managed without medication. Hypercholesterolemia - History of high cholesterol, currently managed without medication. GERD - History of gastroesophageal reflux disease, currently managed without medication. History 2 Elective abortions 1 Hx Para 0 Spontaneous abortions 1 Hx # Term Pregnancies Ectopic pregnancies Hx # Pregnancies Multiple births # of living children 0 ROS Const ROS Unobtainable: All systems reviewed are unremarkable except as noted in H (more content not included)... Normal [facility] Retirement Plan Specialist Office Visit Reporton 05-29-2025 Retirement Plan Specialist Office Visit Report [facility] [address], [address] [place] [address] OFFICE VISIT Date of Service: 05/29/25 MR#: [id number] Acct: [id number] Name: PARADAEDWARD MIRANDA DIAMANTE Rep #: [id number] : 1960 Provider: Dr. 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 Is patient in pain?: No Allergies No Known Allergies Allergy (Verified 05/29/25 13:44) Medications ???Medication ???Instructions ???Recorded ???Confirmed ???Type cholecalciferol (vitamin D3) 10 10 mcg PO DAILY 06/14/23 05/29/25 History mcg (400 unit) capsule magnesium 200 mg tablet 200 mg PO DAILY 06/14/23 05/29/25 History fluticasone propionate 50 1 spray intranasal DAILY PRN 03/2005/29/25 History mcg/actuation nasal allergy symptoms spray,suspension (Flonase Allergy Relief) multivitamin with minerals 1 cap PO DAILY 03/20/24 05/29/25 H istory melatonin 10 mg capsule 10 mg PO HS PRN sleep 09/02/2406/13 History lactobacillus combination no.4 3 3,000 mmu cells PO QDAY 10/08/24 1 History billion cell capsule (Probiotic) sucralfate 1 gram tablet 1 g PO QACHS #56 tabs 01/23/2506/13 Rx prednisone 20 mg tablet 20 mg PO QDAY #5 tabs 02/17/2506/13 Rx rabeprazole 20 mg tablet,delayed 20 mg PO QDAY #90 tabs 03/05/25 Rx release (AcipHex) atorvastatin 20 mg tablet 20 mg PO DAILY #90 tabs 03/10/25 1 Rx estradiol 0.01% (0.1 mg/gram) See Rx Instructions vaginal 05/29/25 Rx vaginal cream .COMPLEX #42.5 grams citalopram 20 mg tablet (Celexa) 20 mg PO QDAY 05/29/25 History Is last menstrual period known: No Patient : No : No PFSH Medical History History of hiatal hernia Heartburn Wears glasses Post-menopausal Anxiety Injury of head and neck Gastric reflux Former smoker History of irregular heartbeat High cholesterol Hiatal hernia Surgical History History of salpingectomy S/P laparoscopic cholecystectomy Hx of esophagogastroduodenoscopy Hx of colonoscopy Hx of tonsillectomy Encounter for Essure implantation History of removal of cyst Family History Mother Diabetes History of blood clots Anxiety Hypertension Father Diabetes Hypertension Pancreatic cancer Sister History of blood clots Lymphedema Grandmother Diabetes Sister GERD (gastroesophageal reflux disease) Social History adopted: No household members: spouse 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 (2) pets and animals: dog(s) history of recent travel: No Smoking Status: Former smoker quit date: 08/20/94 pack-years: 5 Tobacco: How many years used: 5 Electronic Cigarette Use: not used alcohol intake: never substance use type: does not use diet: low carbohydrate caffeine: Yes (2) Type: coffee frequency: 3-4 times per week ni/episcopal: Mosque seatbelt use: always do you feel safe at home: Yes additional social history: - Lindsay- on disability HPI SURGICAL CONSULT ESSURE DEVICE REMOVAL Details: The patient is a 66-year-old female with a history of Essure placement presenting for evaluation of pelvic pain. Pelvic Pain - Essure placement in 2005. - Reports onset of pelvic pain in November, described as cramping and sharp stabbing pains, primarily on the right side. - Pain is constant but had a brief period of resolution before resuming last week. - Associated with bleeding for about six weeks at the onset of pain, but no bleeding since. - Ultrasound and CT scan show linear echogenic structures in the uterine fundus bilaterally, likely representing intratubal contraceptive devices; no fibroids or thickened endometrial lining noted. Anxiety - History of anxiety, currently managed without medication. Hypercholesterolemia - History of high cholesterol, currently managed without medication. GERD - History of gastroesophageal reflux disease, currently managed without medication. History 2 Elective abortions 1 Hx Para 0 Spontaneous abortions 1 Hx # Term Pregnancies Ectopic pregnancies Hx # Pregnancies Multiple births # of living children 0 ROS Const ROS Unobtainable: All systems reviewed are unremarkable except as noted in H Resp Resp: Reports system reviewed and no additi (more content not included)... Normal [facility] Retirement Plan Specialist Office Visit Reporton 04-14-2025 Retirement Plan Specialist Office Visit Report [facility] [address], [address] [place] [address] OFFICE VISIT Date of Service: 04/14/25 MR#: [id number] Acct: [id number] Name: EDWARD PARADA Rep #: [id number] : 1960 Provider: ELBA nascimento Age/Sex: 64/F Location: [facility] Status: Signed Intake Vital Signs 02/25/25 11:32 04/14/25 13:00 Height 5 ft 2 in 5 ft 2 in Weight: 247 lb 8 oz 255 lb 7 oz BMI 45.2 46.7 BP 126/84 H 134/82 H Intake Visit Reasons: 4w medication fu Chief Complaint: med check 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 Is patient in pain?: No Allergies No Known Allergies Allergy (Verified 04/14/25 13:02) Medications ???Medication ???Instructions ???Recorded ???Confirmed ???Type cholecalciferol (vitamin D3) 10 10 mcg PO DAILY 06/14/23 04/14/25 History mcg (400 unit) capsule magnesium 200 mg tablet 200 mg PO DAILY 06/14/23 04/14/25 History fluticasone propionate 50 1 spray intranasal DAILY PRN 03/2004/14/25 History mcg/actuation nasal allergy symptoms spray,suspension (Flonase Allergy Relief) multivitamin with minerals 1 cap PO DAILY 03/20/24 04/14/25 H istory melatonin 10 mg capsule 10 mg PO HS PRN sleep 09/02/24 History lactobacillus combination no.4 3 3,000 mmu cells PO QDAY 10/08/24 0 04/14/25 History billion cell capsule (Probiotic) sucralfate 1 gram tablet 1 g PO QACHS #56 tabs 01/23/25 Rx prednisone 20 mg tablet 20 mg PO QDAY #5 tabs 02/17/25 Rx citalopram 20 mg tablet (Celexa) 30 mg (1.5 x 20 mg) PO QDAY #135 0 03/02/25 04/14/25 Rx tabs rabeprazole 20 mg tablet,delayed 20 mg PO QDAY #90 tabs 03/05/25 Rx release (AcipHex) atorvastatin 20 mg tablet 20 mg PO DAILY #90 tabs 03/10/25 0 04/14/25 Rx estradiol 0.01% (0.1 mg/gram) See Rx Instructions vaginal 04/14/25 Rx vaginal cream .COMPLEX #42.5 grams Is last menstrual period known: No Post menopausal: Yes Patient : No : No PFSH Medical History History of hiatal hernia Heartburn Wears glasses Post-menopausal Anxiety Injury of head and neck Gastric reflux Former smoker History of irregular heartbeat High cholesterol Hiatal hernia Surgical History History of salpingectomy S/P laparoscopic cholecystectomy Hx of esophagogastroduodenoscopy Hx of colonoscopy Hx of tonsillectomy Encounter for Essure implantation History of removal of cyst Family History Mother Diabetes History of blood clots Anxiety Hypertension Father Diabetes Hypertension Pancreatic cancer Sister History of blood clots Lymphedema Grandmother Diabetes Sister GERD (gastroesophageal reflux disease) Social History adopted: No household members: spouse 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 Her initial visit was for pelvic pain, vaginal dryness and postmenopausal bleeding. Her EMB was benign tissue with possible atrophic polypoid material. She was very atrophic so estradiol cream was started. She states her vaginal dryness has resolved. She has had no further vaginal spotting. She does continue to have pelvic pain and cramping which has been ongoing X 4 months. She is taking OTC pain reliever daily. She does have essure devices in place and we previously discussed these may be causing her pain. She is wanting them removed. History 2 Elective abortions 1 Hx Para 0 Spontaneous abortions 1 Hx # Term Pregnancies Ectopic pregnancies Hx # Pregnancies Multiple births # of living children 0 ROS Const Constitutional: Reports system reviewed and no additional complaints, except as documented Eyes Eyes: Reports system reviewed and no additional complaints, except as documented GI GI: Denies abdominal pain or change in bowel habits : Reports as per HPI Exam Const General: cooperative and no acute distress Orientation: oriented x3 General: francheska (more content not included)... Normal [facility] Pelvic w/ Transvaginalon Pelvic w/ Transvaginal [facility] Imaging Services [address] [place] [address] Pelvic w/ Transvaginal MR#: [id number] Acct: [id number] Name: EDWARD PARADA Rep #: [id number] : 1960 F 64 From: Meagan Zhang MD PCP: Dr. Ann Dennison MD Status: REG CLI Study: Pelvic w/ Transvaginal Date of Exam: 03/10/25 Exam# [id number] Ordering Dr: Raquel Crump ANTENNA ENGINEER ANTENNA ENGINEER -C PROCEDURE: PELVIC W/ TRANSVAGINAL 03/10/2025 REASON FOR EXAM: POSTMENOPAUSAL BLEEDING TECHNIQUE: PELVIC W/ TRANSVAGINAL. Transabdominal and transvaginal grayscale, color and spectral Doppler pelvic ultrasound. COMPARISON: CT Abdomen and Pelvis w/Contrast, 10/13/2024 FINDINGS: ENDOMETRIUM: Homogeneous. Normal thickness of 3.2 mm. No abnormal endometrial color Doppler flow. UTERUS: Anteverted. Normal size measuring 7.0 x 4.2 x 3.3 cm with parenchymal heterogeneity. Linear echogenic structures at the fundus bilaterally, may represent intratubal contraceptive devices, which were present on the prior CT. No fibroid detected. CERVIX: Normal size and contour. RIGHT OVARY: Not visualized. LEFT OVARY: Normal size measuring 2.9 x 2.0 x 1.8 cm with anechoic 1.4 x 1.4 x 1.1 cm follicle. Normal blood flow. No adnexal mass. FREE FLUID: No free fluid. OTHER: Normal appearance of the urinary bladder. US/Pelvic w/ Transvaginal IMPRESSION: 1. No acute pelvic ultrasound abnormality. 2. Linear echogenic structures at the uterine fundus bilaterally, may represent intratubal contraceptive devices, which were present on the prior CT. Clinical correlation suggested. Reading Location: [facility] CC: ELBA Crump; Dr. 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 Normal [facility] Comment on above: Performed By: #### M [id number] ####[facility] [address] [place], [place], [id number] Laboratory - Chemistry and C hemistry - challengeOrdered By: Raquel Crump on 02-25-2025 Bilirubin Ql (U) Negative [facility] Glucose Ql (U) Negative [facility] Ketones Ql (U) Negative [facility] pH (U) 5.0 [pH] [facility] Specific gravity (U) [Rel density] 1.025 [facility] Urobilinogen (U) [Mass/Vol] Negative [facility] Laboratory - Hematology and Cell countsOrdered By: Raquel Crump on 02-25-2025 Hemoglobin Ql (U) Negative [facility] Laboratory - Specimen inform ationOrdered By: Raquel Crump on 02-25-2025 Clarity (U) Clear [facility] Color (U) Yellow [facility] Laboratory - UrinalysisOrder ed By: Raquel Crump on 02-25-2025 Nitrite Ql (U) Negative [facility] Protein Ql (U) Negative [facility] No Panel InformationOrdered By: Raquel Crump on 02-25-2025 Urine Leukocytes Positive [facility] Urine Non-Hemolyzed Blood Negative [facility] Retirement Plan Specialist Office Visit Reporton 02-25-2025 Retirement Plan Specialist Office Visit Report [facility]'s [address], [address] [place] [id number] OFFICE VISIT Date of Service: 02/25/25 MR#: [id number] Acct: [id number] Name: EDWARD PARADA Rep #: [id number] : 1960 Provider: ELBA nascimento Age/Sex: 64/F Location: [facility] Status: Signed Intake Vital Signs 02/17/25 13:03 02/25/25 11:32 Height 5 ft 2 in 5 ft 2 in Weight: 245 lb 8 oz 247 lb 8 oz BMI 44.9 45.2 BP 128/82 H 126/84 H Blood Pressure Location Lt brachial Position Sitting Respiration 16 Pulse 63 Pulse Source Monitor Temp 97.1 F L Pulse Oximetry (%) 96 Intake Visit Reasons: PMB x 2 days Chief Complaint: PMB 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 Is patient in pain?: No Allergies No Known Allergies Allergy (Verified 02/25/25 11:48) Medications ???Medication ???Instructions ???Recorded ???Confirmed ???Type cholecalciferol (vitamin D3) 10 10 mcg PO DAILY 06/14/23 02/25/25 History mcg (400 unit) capsule magnesium 200 mg tablet 200 mg PO DAILY 06/14/23 02/25/25 History fluticasone propionate 50 1 spray intranasal DAILY PRN 03/2002/25/25 History mcg/actuation nasal allergy symptoms spray,suspension (Flonase Allergy Relief) multivitamin with minerals 1 cap PO DAILY 03/20/24 02/25/25 H istory melatonin 10 mg capsule 10 mg PO HS PRN sleep 09/02/2405/14 History citalopram 20 mg tablet (Celexa) 30 mg (1.5 x 20 mg) PO QDAY #135 0 09/22/24 02/25/25 Rx tabs atorvastatin 20 mg tablet 20 mg PO DAILY #90 tabs 09/29/24 0 02/25/25 Rx pantoprazole 40 mg tablet,delayed 40 mg PO QDAY #90 tabs 09/29/24 0 02/25/25 Rx release (Protonix) Held on 02/17/25. Instructions: Order Changed lactobacillus combination no.4 3 3,000 mmu cells PO QDAY 10/08/24 0 02/25/25 History billion cell capsule (Probiotic) sucralfate 1 gram tablet 1 g PO QACHS #56 tabs 01/23/2505/14 Rx prednisone 20 mg tablet 20 mg PO QDAY #5 tabs 02/17/2505/14 Rx rabeprazole 20 mg tablet,delayed 20 mg PO QDAY #30 tabs 02/17/25 Rx release (AcipHex) Is last menstrual period known: No Post menopausal: Yes Patient : No : No PFSH PFSH Medical History History of hiatal hernia Heartburn Wears glasses Post-menopausal Anxiety Injury of head and neck Gastric reflux Former smoker History of irregular heartbeat High cholesterol Hiatal hernia Surgical History History of salpingectomy S/P laparoscopic cholecystectomy Hx of esophagogastroduodenoscopy Hx of colonoscopy Hx of tonsillectomy Encounter for Essure implantation History of removal of cyst Family History Mother Diabetes History of blood clots Anxiety Hypertension Father Diabetes Hypertension Pancreatic cancer Sister History of blood clots Lymphedema Grandmother Diabetes Sister GERD (gastroesophageal reflux disease) Social History adopted: No household members: spouse 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 (2) pets and animals: dog(s) history of recent travel: No Smoking Status: Former smoker quit date: 08/20/94 pack-years: 5 Tobacco: How many years used: 5 Electronic Cigarette Use: not used alcohol intake: never substance use type: does not use diet: low carbohydrate caffeine: Yes (2) Type: coffee frequency: 3-4 times per week ni/episcopal: Mosque seatbelt use: always do you feel safe at home: Yes additional social history: - Lindsay- on disability History 2 Elective abortions 1 Hx Para 0 Spontaneous abortions 1 Hx # Term Pregnancies Ectopic pregnancies Hx # Pregnancies Multiple births # of living children 0 HPI PMB x 2 days Details: EDWARD PARADA is a 64 year old who presents for EMB after spotting with wiping X 3 days. Having some external irritation. Still sexually active. ROS Const Constitutional: Reports system reviewed and no additional complaints, except as documented Eyes Eyes: Reports system reviewed and no additional complaints, except as documented GI GI: Denies abdominal pain or change in bowel habits : Reports as per HPI Exam Const General: cooperative and no acute distress Orientation: oriented x3 Resp Effort Inspection: normal respiratory effort General: bladder normal to palpation External Female Exam: normal external appearance (atrophic changes), normal appearance of the urethra and no erythema Urethra: normal appearance of the urethra Speculum Exam - Vagina: normal vaginal discharge, vag (more content not included)... Normal [facility] Surgery Specimen Level Sharee 02-25-2025 Surgery Specimen Level IV Patient Age/Sex Location Account Attending Physician EDWARD PARADA/F LABSPEC [id number] ELBA Gallegos Specimen: [id number] Received: 02/25/25 Status: MARSHALL Jaime Num: [id number] Spec Type: ENDOM BX/C Subm Dr: ELBA Gallegos HEADER OPERATION: Endometrial biopsy PRE-OP DIAGNOSIS: Postmenopausal bleeding TISSUE SUBMITTED: A- Endometrial lining MICROSCOPIC DIAGNOSIS A. Endometrium, PMB, biopsy: - Polypoid fragment of inactive endometrium with cystic atrophy. - Minute fragments of squamous and endocervical mucosa mixed with mucus. - Negative for hyperplasia or malignancy. MICROSCOPIC DESCRIPTION Slides are reviewed. GROSS DESCRIPTION A. Received in formalin labeled with the patient's name and date of is a 2.3 x 2.1 x 0.2 cm aggregate of mucoid material with flecks of morejon tissue. Entirely submitted in 1 cassette. [place] 02/26/2025 CPT:22423 Patient Age/Sex Location Account Attending Physician EDWARD PARADA 64/F LABSPEC [id number] ELBA Gallegos Signed (signature on file) Dr. Halle Zhang MD 03/03/25 0952 Normal [facility] Comment on above: Performed By: #### P SUIV #### [facility] [address] [place], [address] Urine cultureOrdered By: Myron Crump on 02-25-2025 Bacteria identified Cx Nom (U) Culture exhibits no growth. [facility] Internal Medicine Office Vis iton 02-16-2025 Internal Medicine Office Visit [facility] [place] [address] [place] [address] OFFICE VISIT Date of Service: 02/17/25 MR#: [id number] Acct: [id number] Name: EDWARD PARADA DIAMANTE Rep #: [id number] : 1960 Provider: Dr. 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 Allergies No Known Allergies Allergy (Verified 02/17/25 13:02) Medications ???Medication ???Instructions ???Recorded ???Confirmed ???Type cholecalciferol (vitamin D3) 10 10 mcg PO DAILY 06/14/23 02/17/25 History mcg (400 unit) capsule magnesium 200 mg tablet 200 mg PO DAILY 06/14/23 02/17/25 History fluticasone propionate 50 1 spray intranasal DAILY PRN 03/2002/17/25 History mcg/actuation nasal allergy symptoms spray,suspension (Flonase Allergy Relief) multivitamin with minerals 1 cap PO DAILY 03/20/24 02/17/25 H istory melatonin 10 mg capsule 10 mg PO HS PRN sleep 09/02/2409/13 History citalopram 20 mg tablet (Celexa) 30 mg (1.5 x 20 mg) PO QDAY #135 0 09/22/24 02/17/25 Rx tabs atorvastatin 20 mg tablet 20 mg PO DAILY #90 tabs 09/29/24 0 02/17/25 Rx pantoprazole 40 mg tablet,delayed 40 mg PO QDAY #90 tabs 09/29/24 0 02/17/25 Rx release (Protonix) Held on 02/17/25. Instructions: Order Changed lactobacillus combination no.4 3 3,000 mmu cells PO QDAY 10/08/24 0 02/17/25 History billion cell capsule (Probiotic) sucralfate 1 gram tablet 1 g PO QACHS #56 tabs 01/23/2509/13 Rx prednisone 20 mg tablet 20 mg PO QDAY #5 tabs 02/17/2509/13 Rx rabeprazole 20 mg tablet,delayed 20 mg PO QDAY #30 tabs 02/17/25 Rx release (AcipHex) Nurse's Note: ear infection has continued, update on medication, and [facility]ors [facility] History History of hiatal hernia Heartburn Wears glasses Post-menopausal Anxiety Injury of head and neck Gastric reflux Former smoker History of irregular heartbeat High cholesterol Hiatal hernia Surgical History History of salpingectomy S/P laparoscopic cholecystectomy Hx of esophagogastroduodenoscopy Hx of colonoscopy Hx of tonsillectomy Encounter for Essure implantation History of removal of cyst Family History Mother Diabetes History of blood clots Anxiety Hypertension Father Diabetes Hypertension Pancreatic cancer Sister History of blood clots Lymphedema Grandmother Diabetes Sister GERD (gastroesophageal reflux disease) Social History adopted: No household members: spouse 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 (2) pets and animals: dog(s) history of recent travel: No Smoking Status: Former smoker quit date: 08/20/94 pack-years: 5 Tobacco: How many years used: 5 Electronic Cigarette Use: not used alcohol intake: never substance use type: does not use diet: low carbohydrate caffeine: Yes (2) Type: coffee frequency: 3-4 times per week ni/episcopal: Mosque seatbelt use: always do you feel safe at home: Yes additional social history: - Lindsay- on disability Female Reproductive History Menstrual Date of menopause: 12/24/13 Ab induced: 1 Ab spontaneous: 1 HPI HPI Details: EDWARD PARADA, is a 64 F who presents to the office today for a follow up. She is up to date on her routine blood work and screening. She isn't due for any immunizations. She doesn't smoke and does need refills. She reports she is eating healthy and staying active. She reports her anxiety has been doing fine. She is taking her celexa as prescribed without problems and she does think the increased dose helped. She is following with a counselor, which has been helpful. She denies feeling depressed nor having any thoughts of suicide. She has been taking her cholesterol medication as prescribed without problems. At her last office visit, she was having abdominal symptoms. Work up was negative. She was placed on a PPI. She later underwent an EGD which showed chronic inflammation and was started on carafate. She reports that her symptoms did get better with that. She states, however, with stopping the carafate, her symptoms seemed to return. She was told it should not be a care home medication and questions if there is somethin (more content not included)... [facility] Billie 02-05-2025 [facility] Telephone ([facility]WSTR) EDWARD PARADA ([id number]) 1960 F Date Time Provider Department 02/05/25 YUDY SMITH [facility] During your visit today, we recorded the following information about you: Naty Castañeda RN 02/05/2025 9:51 AM Signed Patient was seen by [facility] provider on 02/04/25 and was to be ordered an antibiotic which was to be sent to [facility]. Patient calling in to states the script was never sent. She is asking if provider could send it. Please call patient back with an update. [phone] NANCY Vivar Kathy, APRN.CNP 02/05/2025 10:03 AM Signed Patient identified by name and date of . Rx sent to pharmacy and patient notified via phone call. Yudy Smith APRN.RYAN Allergies As of Date: 02/05/2025 (No Known Allergies) Date Reviewed: 02/04/2025 Reviewed by: Bella Church MA - Fully Assessed Reason for Visit: Medication Request [138] Primary Visit Diagnosis:Other acute nonsuppurative otitis media of right ear, recurrence not specified [H65.191] Order(s):amoxicillin (AMOXIL) 875 mg tabletTake 1 tablet by mouth two times a day for 7 days.Disp: 14 tabletRfl: 0 Prescriptions as of 02/05/2025 - amoxicillin (AMOXIL) 875 mg tablet Take 1 tablet by mouth two times a day for 7 days. - atorvastatin (LIPITOR) 20 mg tablet 20 mg. - pantoprazole DR (PROTONIX) 40 mg tablet - sucralfate (CARAFATE) 1 gram tablet TAKE 1 TABLET BY MOUTH 1 HOUR BEFORE MEALS AND AT BEDTIME - citalopram hydrobromide (CELEXA) 10 mg tablet Take 10 mg by mouth once daily. Problem List As Of Date: 02/05/2025 (None) Prescriptions ordered this encounter Disp Refills Start End AMOXICILLIN 875 MG TABLET 14 t* 0 02/05/2025 02/12/2025 Route: PO Sig: Take 1 tablet by mouth two times a day for 7 days. Encounter Status:Closed by YUDY SMITH on 02/05/25 [facility] CNOVon 02-04-2025 CNOV Office Visit (UCWSTR ) TALRESHMAFrance Rockwell ([id number]) 1960 F Date Time Provider Department 02/04/25 5:45 PM YUDY SMITH [facility] During your visit today, we recorded the following information about you: Temperature Pulse Respiration Blood pressure 100.4 degrees 95/minute 19/minute 120/100 Weight 110.7 kg Yudy Smith, MORGAN.CARE TEAM COORDINATOR SCHEDULER 02/04/2025 6:28 PM Signed [facility] Subjective Edward Parada is a 64 year old female. Patient presents with: Ear Pain: ZEYNEP ear pain, congestion, cough,drainage, sore throat, nausea x 2 days Ear Pain Ear Pain, Congestion, Sore Throat, Fever, and Nausea: - Symptoms began on Sunday. - Sore throat, rated 9/10 on pain scale. - Right ear pain, congestion, and nausea. - Fever up to 100.2 degreeF at home; chills noted. - Dry cough last night; denies dyspnea, myalgias, emesis, or diarrhea. - Took a COVID test this morning, which was negative. - Recent overnight trip to [place] on Sunday; denies exposure to sick contacts. - Taking generic cold medicine since yesterday. Review of Systems Constitutional: (+) fever, (+) chills Ears/Nose/Mouth/Throat: (+) right ear pain, (+) nasal congestion, (+) sore throat, (+) odynophagia Respiratory: (+) dry cough, (-) shortness of breath Gastrointestinal: (+) nausea, (-) vomiting, (-) diarrhea Objective BP 120/100 Pulse 95 Temp (!) 38 ?C (100.4 ?F) Resp 19 Wt 110.7 kg (244 lb 0.8 oz) SpO2 95% No past medical history on file. No past surgical history on file. ALLERGIES Patient has no known allergies. MEDICATIONS - atorvastatin (LIPITOR) 20 mg tablet 20 mg. - pantoprazole DR (PROTONIX) 40 mg tablet - sucralfate (CARAFATE) 1 gram tablet TAKE 1 TABLET BY MOUTH 1 HOUR BEFORE MEALS AND AT BEDTIME - citalopram hydrobromide (CELEXA) 10 mg tablet Take 10 mg by mouth once daily. No family history on file. Social History Tobacco Use - Smoking status: Former - Smokeless tobacco: Never Physical Exam Vitals and nursing note reviewed. Constitutional: General: She is not in acute distress. Appearance: Normal appearance. She is not ill-appearing. HENT: Right Ear: Ear canal and external ear normal. Tympanic membrane is erythematous and bulging. Left Ear: Tympanic membrane, ear canal and external ear normal. Nose: Nose normal. Mouth/Throat: Mouth: Mucous membranes are moist. Pharynx: Oropharynx is clear. Uvula midline. Posterior oropharyngeal erythema present. No pharyngeal swelling, oropharyngeal exudate or uvula swelling. Tonsils: No tonsillar exudate. Cardiovascular: Rate and Rhythm: Normal rate and regular rhythm. Heart sounds: Normal heart sounds. Pulmonary: Effort: Pulmonary effort is normal. No respiratory distress. Breath sounds: Normal breath sounds. No wheezing or rales. Lymphadenopathy: Cervical: No cervical adenopathy. Skin: General: Skin is warm and dry. Findings: No erythema or rash. Neurological: Mental Status: She is alert. General: No acute distress. HEENT: Pharynx erythematous; right tympanic membrane erythematous and bulging; cervical lymphadenopathy. CV: Heart rate regular. Resp: Lungs clear to auscultation bilaterally. {1. Acute pharyngitis, unspecified etiology (J02.9) - Pharyngitis with erythematous throat on examination; strep test negative, likely viral etiology. - Advised symptomatic treatment and rest. 2. Other acute nonsuppurative otitis media of right ear, recurrence not specified (H65.191) - Right ear examination reveals erythematous and bulging tympanic membrane. - Initiated antibiotic therapy; prescription sent to pharmacy. 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 History obtained from or confirmed by: spouse. Systemic symptoms present included: Disposition The patient was discharged. OTC Medications were advised: Procedures Yudy Smith, MORGAN.CARE TEAM COORDINATOR SCHEDULER 02/04/2025 6:28 PM Signed 1. Acute pharyngitis, unspecified etiology (J02.9) - Pharyngitis with erythematous throat on examination; strep test negative, likely viral etiology. - Advised symptomatic treatment and rest. 2. Other acute nonsuppurative otitis media of right ear, recurrence not specified (H65.191) - Right ear examination reveals erythematous and bulging tympanic membrane. - Initiated antibiotic therapy; prescription sent to pharmacy. - Start the antibiotic prescribed for your right ear infection; the prescription has been sent to your pharmacy. - Stop using your generic Dayquil/Nyquil cold medicine that contains a decongestant. - Take Coricidin (available over the counter) to help (more content not included)... Normal [facility] STREP A MOLECULAR (POC)on Procedural Control Valid [facility] Strep A (POCT) Negative Negative [facility] Retirement Plan Specialist Office Visit Reporton 12-10-2024 Retirement Plan Specialist Office Visit Report [facility] [address], [address] [place] [address] OFFICE VISIT Date of Service: 12/10/24 MR#: [id number] Acct: [id number] Name: EDWARD PARADA DIAMANTE Rep #: [id number] : 1960 Provider: ELBA Lindsay Age/Sex: 64/F Location: [facility] Status: Signed Intake Vital Signs 04/15/24 07:32 11/03/24 08:44 12/10/24 13:03 12/10/24 13:04 Height 5 ft 2 in 5 ft 2 in 5 ft 2 in 5 ft 2 in Weight: 242 lb BMI 44.2 BP 141/82 H Intake Visit 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 Is patient in pain?: No Allergies No Known Allergies Allergy (Verified 12/10/24 13:03) Medications ???Medication ???Instructions ???Recorded ???Confirmed ???Type cholecalciferol (vitamin D3) 10 10 mcg PO DAILY 06/14/23 12/10/24 History mcg (400 unit) capsule magnesium 200 mg tablet 200 mg PO DAILY 06/14/23 12/10/24 History fluticasone propionate 50 1 spray intranasal DAILY PRN 03/2012/10/24 History mcg/actuation nasal allergy symptoms spray,suspension (Flonase Allergy Relief) multivitamin with minerals 1 cap PO DAILY 03/20/24 12/10/24 H istory melatonin 10 mg capsule 10 mg PO HS PRN sleep 09/02/24 History citalopram 20 mg tablet (Celexa) 30 mg (1.5 x 20 mg) PO QDAY #135 0 09/22/24 12/10/24 Rx tabs atorvastatin 20 mg tablet 20 mg PO DAILY #90 tabs 09/29/24 0 12/10/24 Rx pantoprazole 40 mg tablet,delayed 40 mg PO QDAY #90 tabs 09/29/24 0 12/10/24 Rx release (Protonix) lactobacillus combination no.4 3 3,000 mmu cells PO QDAY 10/08/24 0 12/10/24 History billion cell capsule (Probiotic) sucralfate 1 gram tablet 1 g PO QACHS #56 tabs 11/24/24 Rx PFSH Medical History History of hiatal hernia Heartburn Wears glasses Post-menopausal Anxiety Injury of head and neck Gastric reflux Former smoker History of irregular heartbeat High cholesterol Hiatal hernia Surgical History History of salpingectomy S/P laparoscopic cholecystectomy Hx of esophagogastroduodenoscopy Hx of colonoscopy Hx of tonsillectomy Encounter for Essure implantation History of removal of cyst Family History Mother Diabetes History of blood clots Anxiety Hypertension Father Diabetes Hypertension Pancreatic cancer Sister History of blood clots Lymphedema Grandmother Diabetes Sister GERD (gastroesophageal reflux disease) Social History adopted: No household members: spouse 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 (2) pets and animals: dog(s) history of recent travel: No Smoking Status: Former smoker quit date: 08/20/94 pack-years: 5 Tobacco: How many years used: 5 Electronic Cigarette Use: not used alcohol intake: never substance use type: does not use diet: low carbohydrate caffeine: Yes (2) Type: coffee frequency: 3-4 times per week ni/episcopal: Mosque seatbelt use: always do you feel safe at home: Yes additional social history: - Lindsay- on disability History 2 Elective abortions 1 Hx Para 0 Spontaneous abortions 1 Hx # Term Pregnancies Ectopic pregnancies Hx # Pregnancies Multiple births # of living children 0 HPI Encounter for routine gynecological examination Details: EDWARD PARADA is a 64 year old who presents for annual exam. She reports no issues or concerns today. Doing well. Last PAP: 2023; normal. hpv neg. History of abnormal PAP: no. Last mammogram: 2023; normal. History of abnormal mammogram: no. Colon cancer screening: yes colonoscopy; x 2 yrs ago. Negative; following with gastro-robotham. Other preventative health care screenings: Ann Dennison; PCP. ROS Const Constitutional: Denies chills, fatigue, fever(s), headache(s) or weight loss Eyes Eyes: Denies change in vision ENT ENT: Denies dizziness Resp Resp: Denies cough GI GI: Denies abdominal pain, constipation or nausea : Denies difficulty voiding, dysuria, hematuria, nipple discharge, pelvic pain, prolapse symptoms, urinary incontinence, vaginal discharge, vaginal dryness, vaginal odor or vaginal pruritus Skin Skin/Breast: Denies alopecia, rash, breast mass, breast pain, breast skin changes or nipple discharge Neuro Neuro: Denies dizziness Psych Psych: Denies anxiety or depression Endo Endo: Denies cold intolerance, excessive sweating or heat intolerance Exam Const General: cooperative, healthy appearing, comfortable, no acute distress, well groomed and well hydrated Nutritional Appearance: well nourished Orientation: alert, awake and (more content not included)... Normal [facility] EGD Reporton 11-03-2024 EGD Report [facility] Medical Records Department [address] [place] [address] EGD Report MR#: [id number] Acct: [id number] Name: EDWARD PARADA Rep #: [id number] : 1960 64 From: Alcira Vizcarra MD PCP: Dr. Ann Dennison MD Status:REG [facility] Patient Name: Edward Parada Procedure Date: 11/03/2024 10:22 AM Date of : 1960 Age: 64 Procedure: Upper GI endoscopy Indications: Heartburn Providers: Alcira Vizcarra MD Referring MD: Ann Dennison Md Medicines: Monitored Anesthesia Care Patient Profile: This is a 64 year old female. Complications: No immediate complications. Procedure: Pre-Anesthesia Assessment: - Prior to the procedure, a History and Physical was performed, and patient medications and allergies were reviewed. The patient's tolerance of previous anesthesia was also reviewed. The risks and benefits of the procedure and the sedation options and risks were discussed with the patient. All questions were answered, and informed consent was obtained. Prior Anticoagulants: The patient has taken no anticoagulant or antiplatelet agents. ASA Grade Assessment: Per anesthesia. After reviewing the risks and benefits, the patient was deemed in satisfactory condition to undergo the procedure. After obtaining informed consent, the endoscope was passed under direct vision. Throughout the procedure, the patient's blood pressure, pulse, and oxygen saturations were monitored continuously. The gastroscope was introduced through the mouth, and advanced to the second part of duodenum. The upper GI endoscopy was accomplished without difficulty. The patient tolerated the procedure well. Scope In: 10:33:08 AM Scope Out: 10:38:46 AM Total Procedure Duration Time 0 hours 5 minutes 38 seconds Findings: The Z-line was variable and was found 43 cm from the incisors. Biopsies were taken with a cold forceps for histology. The cardia and gastric fundus were normal on retroflexion. No gross lesions were noted in the entire esophagus. The examined duodenum was normal. Moderately erythematous mucosa without bleeding was found in the gastric antrum. Biopsies were taken with a cold forceps for histology. Biopsies were taken with a cold forceps for Helicobacter pylori cultures. Impression: - Z-line variable, 43 cm from the incisors. Biopsied. - No gross lesions in the entire esophagus. - Normal examined duodenum. - Erythematous mucosa in the antrum. Biopsied. Recommendation: - Await pathology results. - Continue present medications. Procedure Code(s): --- Professional --- 60470, Esophagogastroduodenoscopy, flexible, transoral; with biopsy, single or multiple Diagnosis Code(s): --- Professional --- K22.89, Other specified disease of esophagus K31.89, Other diseases of stomach and duodenum R12, Heartburn CPT copyright 2021 [employer]. All rights reserved. The codes documented in this report are preliminary and upon wash driller helper review may be revised to meet current compliance requirements. MD Alcira Aleman MD 11/03/2024 10:44:35 AM This report has been signed electronically. Number of Addenda: 0 Note Initiated On: 11/03/2024 10:22 AM 11/03/24 1044 Date Alcira Vizcarra MD Cosigner Signature: Date (if indicated) CC: Dr. Ann Dennison MD; Dr. Alcira Vizcarra MD Date Dictated: 11/03/24 1022 Date Transcribed: Commercial Electrician: TR Signed [facility] Immunohistochemical Stainson 11-03-2024 Immunohistochemical Stains Patient Age/Sex Location Account Attending Physician PARADAEDWARD MIRANDA DIAMANTE 64/F EN [id number] Dr. Alcira Vizcarra MD Specimen: [id number] Received: 11/03/24 Status: MARSHALL Jaime Num: [id number] Spec Type: EGD BIOPSY Subm Dr: Dr. Alcira Vizcarra MD HEADER OPERATION: EGD with biopsy PRE-OP DIAGNOSIS: Gastric reflux, epigastric abdominal pain, right upper quadrant pain TISSUE SUBMITTED: A- Antrum biopsy, B- Gastroesophageal junction biopsy MICROSCOPIC DIAGNOSIS A. Stomach, antrum, biopsy: * Reactive gastropathy, mild chronic inflammation. * IHC is negative for H pylori. B. Esophagus, GE junction, biopsy: * Benign squamous mucosa. * Columnar mucosa negative for goblet cell metaplasia. MICROSCOPIC DESCRIPTION Slides are reviewed. GROSS DESCRIPTION A. Received in fixative is one container labeled with the patient's name and designated Antrum biopsy. The specimen consists of one irregular fragment of light morejon soft tissue that measures 0.5 x 0.4 x 0.1 cm. The specimen is totally submitted in one cassette. B. Received in fixative is one container labeled with the patient's name and designated GE junction biopsy. The specimen consists of one irregular fragment of light morejon soft tissue that measures 0.5 x 0.3 x 0.2 cm. The specimen is totally submitted in one cassette. 11/03/2024 CPT:49750r9,25219 Patient Age/Sex Location Account Attending Physician EDWARD PARADA 64/F EN [id number] Dr. Alcira Vizcarra MD Signed (signature on file) Dr. Halle Zhang MD 11/07/24 1229 Normal [facility] Comment on above: Performed By: #### P IMDC ####[facility] [id number] [place], [address] MR/POSTOP.ANEon 11-03-2024 MR/POSTOP.ANE [facility] Medical Records Department [address] [place] [address] Anesthesia Postop Eval I 11/03/24 1047 MR#: [id number] Acct: [id number] Name: EDWARD PARADA Rep #: [id number] : 1960 64 From: Fredy Salguero CRNA PCP: Dr. Ann Dennison MD Status:REG SDC Y Race: C Location: [place] [address] Anesthesia: Postop Eval I Current Vital Signs Temperature: 97.1 F Pulse Rate: 65 Blood Pressure: 101/58 Respiratory Rate: 20 Pulse Ox: 96 Oxygen Delivery Method: Room Air Assessment Airway patent: Yes Spontaneous unlabored respirations: Yes Mental status: Awake and Calm nausea: No Vomiting: No Anesthesia Complication: No Fluid Hydration Crystalloid volume administer (ml): 30 Total IV fluid infused: 30 Progress Note Anesthesia document: Postop Eval 1 completed: Yes 11/03/24 104 Date Fredy Salguero CRNA Cosigner Signature: Date CC: Signed Normal [facility] MR/[id number] 11-03-2024 MR/POSTOPAN2 [facility] Medical Records Department [address] [place] [address] Anesthesia Postop Eval II 11/03/24 1114 MR#: [id number] Acct: [id number] Name: EDWARD PARADA DIAMANTE Rep #: [id number] : 1960 64 From: Kailyn Benitez PCP: Dr. Ann Dennison MD Status:REG SDC Y Race: C Location: [place] [address]1 Anesthesia Postop Eval I Sum Postop Eval Completion status Anesthesia document: Postop Eval 1 completed: Yes Anesthesia Postop Eval I Summary Anesthesia Postop Eval I Summary: Anesthesia Postop Eval I: Assessment Summary Airway patent Yes 11/03/24 10:48 HOUSING QUALITY STANDARD INSPECTOR.PKEL Spontaneous unlabored Yes 11/03/24 10:48 HOUSING QUALITY STANDARD INSPECTOR.PKEL respirations Mental status Awake,Calm 11/03/24 10:48 HOUSING QUALITY STANDARD INSPECTOR.PKEL nausea No 11/03/24 10:48 HOUSING QUALITY STANDARD INSPECTOR.PKEL Vomiting No 11/03/24 10:48 HOUSING QUALITY STANDARD INSPECTOR.PKEL Anesthesia Postop Eval I: Fluid Summary Crystalloid volume administer 30 11/03/24 10:48 HOUSING QUALITY STANDARD INSPECTOR.PKEL (ml) Colloids volume administered ( ml) Blood Product volume administered (ml) Total IV fluid infused 30 11/03/24 10:48 HOUSING QUALITY STANDARD INSPECTOR.PKEL Anesthesia Postop Eval I: Summary Notes Anesthesia Complication No 11/03/24 10:48 HOUSING QUALITY STANDARD INSPECTOR.PKEL Anesthesia Complication Comment: Post-operative progress note Anesthesia: Postop Eval II Evaluation Mental status: Awake Pain Level: 0 nausea: No Vomiting: No 11/03/24 1114 Date Kailyn Yancey Signature: Date CC: Signed Normal [facility] Abdomen/Pelvis WITH Contrast on 10-13-2024 Abdomen/Pelvis WITH Contrast [facility] Imaging Services [address] [place] [address] Abdomen/Pelvis WITH Contrast MR#: [id number] Acct: [id number] Name: EDWARD PARADA Rep #: [id number] : 1960 F 64 From: Flakito Dennison i DO PCP: Dr. Ann Dennison MD Status: REG CLI Study: Abdomen/Pelvis WITH Contrast Date of Exam: Exam# [id number] Ordering Dr: Ann Dennison MD PROCEDURE: CT of the abdomen/pelvis with IV contrast. REASON FOR EXAM: Prior cholecystectomy. Nausea. Right upper quadrant pain for 2 months TECHNIQUE: After the administration of 98 cc Isovue-300, contiguous axial CT images were obtained through the abdomen/pelvis. Sagittal and coronal reformats were created. COMPARISON: Abdominal ultrasound 07/02/2023 FINDINGS: Mild degenerative changes in the spine. Bones of the abdomen/pelvis otherwise unremarkable. The included lower ribs and breast tissue unremarkable. Heart is not enlarged. No sizable pericardial effusion. Small hiatal hernia. Lower lungs clear. Abdominal aorta normal in caliber. No large abdominal wall defect. No focal abnormality of the urinary bladder. Moderate patchy wall thickening of the stomach may be due to lack of distention versus peristalsis. The gallbladder is not demonstrated, absent by history. No gross dilation of the biliary tree. Portal vein is patent. The liver, adrenal glands, spleen, and pancreas show no specific abnormality. Kidneys are symmetric in size and enhancement. No solid renal mass or obstructive uropathy. No abdominal/pelvic adenopathy or ascites. No abnormally dilated bowel segments or free intraperitoneal air. Scattered patchy wall thickening of the colon may be due to lack of distention versus peristalsis. Enteric contrast has reached the distal transverse colon. Normal appendix. Bilateral tubal occlusion devices are present. No dominant adnexal lesion. Device present. CT/Abdomen/Pelvis WITH Contrast IMPRESSION: Prior cholecystectomy. No acute findings in the abdomen/pelvis. Small hiatal hernia. Moderate patchy wall thickening of the stomach, which could be due to lack of distention or peristalsis. These findings could be better evaluated with follow-up endoscopy. No abnormal dilation of the biliary tree. No bowel obstruction or perforation. No obstructive uropathy or acute appendicitis. One or more dose reduction techniques were used (e.g., Automated exposure control, adjustment of the mA and/or kV according to patient size, use of iterative reconstruction technique). Reading Location: [facility] CC: Dr. Ann Dennison MD Commercial Electrician: Signed Normal [facility] Surgery Visit Reporton 10-08 Surgery Visit Report [facility] [address] [place] [address] OFFICE VISIT Date of Service: 10/08/24 MR#: [id number] Acct: [id number] Name: EDWARD PARADA Rep #: [id number] : 1960 Provider: Dr. Alcira zelaya MD Age/Sex: 64/F Location: [facility] Status: Signed Intake Vital Signs 09/22/24 14:06 10/08/24 15:08 Height 5 ft 2 in 5 ft 2 in Weight: 245 lb 248 lb BMI 44.8 45.3 BP 132/80 H 124/83 H Blood Pressure Location Lt brachial Rt brachial Position Sitting Sitting Respiration 16 7 L Pulse 77 84 Pulse Source Monitor Monitor Temp 98.8 F Temp Source Temporal Pulse Oximetry (%) 95 98 Oxygen Delivery Method room air room air Intake Visit Reasons: GERD Chief Complaint: gerd Is patient in pain?: No Allergies No Known Allergies Allergy (Verified 10/08/24 15:09) Medications ???Medication ???Instructions ???Recorded ???Confirmed ???Type cholecalciferol (vitamin D3) 10 10 mcg PO DAILY 06/14/23 10/08/24 History mcg (400 unit) capsule magnesium 200 mg tablet 200 mg PO DAILY 06/14/23 10/08/24 History fluticasone propionate 50 1 spray intranasal DAILY PRN 03/2010/08/24 History mcg/actuation nasal spray,suspension (Flonase Allergy Relief) multivitamin with minerals 1 cap PO DAILY 03/20/24 10/08/24 H istory melatonin 10 mg capsule 10 mg PO HS PRN 09/02/24 10/08/24 History ondansetron 4 mg disintegrating 4 mg PO Q8H PRN nausea and 5 10/08/24 Rx tablet vomiting #20 tabs citalopram 20 mg tablet (Celexa) 30 mg (1.5 x 20 mg) PO QDAY #135 0 09/22/24 10/08/24 Rx tabs atorvastatin 20 mg tablet 20 mg PO DAILY #90 tabs 09/29/24 0 10/08/24 Rx pantoprazole 40 mg tablet,delayed 40 mg PO QDAY #90 tabs 09/29/24 0 10/08/24 Rx release (Protonix) lactobacillus combination no.4 3 3,000 mmu cells PO QDAY 10/08/24 0 10/08/24 History billion cell capsule (Probiotic) sucralfate 1 gram tablet 1 g PO QACHS #56 tabs 10/08/24 Rx Have you fallen in the past year?: No PFSH Medical History Wears glasses Post-menopausal Anxiety Injury of head and neck Gastric reflux Former smoker History of irregular heartbeat High cholesterol Hiatal hernia Surgical History History of salpingectomy S/P laparoscopic cholecystectomy Hx of esophagogastroduodenoscopy Hx of colonoscopy Hx of tonsillectomy Encounter for Essure implantation History of removal of cyst Family History Mother Diabetes History of blood clots Anxiety Hypertension Father Diabetes Hypertension Pancreatic cancer Sister History of blood clots Lymphedema Grandmother Diabetes Sister GERD (gastroesophageal reflux disease) Social History adopted: No household members: spouse 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 (2) pets and animals: dog(s) history of recent travel: No Smoking Status: Former smoker quit date: 08/20/94 pack-years: 5 Tobacco: How many years used: 5 Electronic Cigarette Use: not used alcohol intake: never substance use type: does not use diet: low carbohydrate caffeine: Yes (2) Type: coffee frequency: 3-4 times per week ni/episcopal: Mosque seatbelt use: always do you feel safe at home: Yes additional social history: - Lindsay- on disability Female Reproductive History Menstrual Date of menopause: 12/24/13 Ab induced: 1 Ab spontaneous: 1 HPI HPI HPI: 64-year-old female presents due to right upper quadrant and epigastric pain for an EGD. Patient previous had an EGD by Dr. Sun in 2022 may have had a hiatal hernia at that time per patient. Patient does have a history of H. pylori but that was about 30 years ago. Patient did have a stool antigen test that was negative recently. Patient states she has been on omeprazole 20 mg p.o. daily about 3 years did up to 40 mg for about 2 weeks did not notice a change however just changed to Protonix 40 mg and states that her daily sharp pain has resolved she still only has a dull constant pain little more in the right upper quadrant. Patient is status post laparoscopic cholecystectomy. ROS General General: Yes weight change; No appetite, fatigue, colon cancer or breast cancer HEENT HEENT: No difficulty swallowing, eye injury, eye surgery, swollen glands or hoarseness Endo Endocrine: No thyroid disease, diabetes mellitus, thyroid cancer, Hair loss, heat intolerance or cold intolerance Skin Skin: No rash or changing moles Musc Musculoskeletal: Yes back problems; No arthritis, rheumatoid art (more content not included)... Normal [facility] Miscellaneous Lab Procedureo n 10-05-2024 [facility] LAB TEST Normal [facility] Comment on above: Order Comment: DIREC T SEND TO [facility] Result Comment: Sent directly to testing facility per ordering physician. Performed By: #### L 801.1541 #### [facility] [address] [place], [address] H. PYLORI STOOL AGon 025 H PYLORI STL AG Negative Normal Negative [facility] Comment on above: Result Comment: Perf ormed at: - [facility] [address] [id number] Grounds And Nursery Specialist: Rigoberto Martin PhD, Phone: [phone] Performed By: #### L 3100.1950 #### [facility] [address] [place], [address] H. pylori Ag IA Ql (Stl)Orde red By: Ann Dennison on 09-25-2024 Stool Helicobacter pylori Antigen Negative Negative [facility] Comment on above: Performed at: [facility] [address], [place] [id number] Director: Rigoberto Martin PhD, Phone: [phone] Miscellaneous procedureOrder ed By: Ann Dennison on 09-25-2024 Miscellaneous Test See comment [facility] Comment on above: Sent directly to [facility] facility per ordering physician. Internal Medicine Office Vis iton 09-11-2024 Internal Medicine Office Visit [facility] [address] [place] [address] [place] [address] OFFICE VISIT Date of Service: 09/22/24 MR#: [id number] Acct: [id number] Name: EDWARD PARADA Rep #: [id number] : 1960 Provider: Dr. 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 Accompanied by: Self Is patient in pain?: Yes (consistent pain but does have times that are worse then others) Pain scale (1-10): 9 Allergies No Known Allergies Allergy (Verified 09/22/24 14:00) Medications ???Medication ???Instructions ???Recorded ???Confirmed ???Type cholecalciferol (vitamin D3) 10 10 mcg PO DAILY 06/14/23 09/22/24 History mcg (400 unit) capsule magnesium 200 mg tablet 200 mg PO DAILY 06/14/23 09/22/24 History fluticasone propionate 50 1 spray intranasal DAILY PRN 03/2009/22/24 History mcg/actuation nasal spray,suspension (Flonase Allergy Relief) multivitamin with minerals 1 cap PO DAILY 03/20/24 09/22/24 H istory melatonin 10 mg capsule 10 mg PO HS PRN 09/02/24 09/22/24 History ondansetron 4 mg disintegrating 4 mg PO Q8H PRN nausea and 5 09/22/24 Rx tablet vomiting #20 tabs citalopram 20 mg tablet (Celexa) 30 mg (1.5 x 20 mg) PO QDAY #135 0 09/22/24 09/22/24 Rx tabs pantoprazole 40 mg tablet,delayed 40 mg PO QDAY #30 tabs 09/22/24 0 09/22/24 Rx release (Protonix) Have you fallen in the past year?: No PFSH Medical History Wears glasses Post-menopausal Anxiety Injury of head and neck Gastric reflux Former smoker History of irregular heartbeat High cholesterol Hiatal hernia Surgical History History of salpingectomy S/P laparoscopic cholecystectomy Hx of esophagogastroduodenoscopy Hx of colonoscopy Hx of tonsillectomy Encounter for Essure implantation History of removal of cyst Family History Mother Diabetes History of blood clots Anxiety Hypertension Father Diabetes Hypertension Pancreatic cancer Sister History of blood clots Lymphedema Grandmother Diabetes Social History adopted: No household members: spouse 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 (2) pets and animals: dog(s) history of recent travel: No Smoking Status: Former smoker quit date: 08/20/94 pack-years: 5 Tobacco: How many years used: 5 Electronic Cigarette Use: not used alcohol intake: never substance use type: does not use diet: low carbohydrate caffeine: Yes (2) Type: coffee frequency: 3-4 times per week ni/episcopal: Mosque seatbelt use: always do you feel safe at home: Yes additional social history: - Lindsay- on disability Female Reproductive History Menstrual Date of menopause: 12/24/13 Ab induced: 1 Ab spontaneous: 1 HPI HPI Details: EDWARD PARADA, is a 64 F who presents to the office today for a 2 week follow up. She is up to date on her routine blood work and screening. She isn't due for any immunizations. She doesn't smoke and does need refills. She reports she is eating healthy but states it is a work in progress. She is also staying active with work. She has been on celexa for about 12 years. She takes it for anxiety. At her last office visit, her dose was increased. She is taking it as prescribed without problems. She reports she has noticed an improvement. She did start seeing a counselor and reports that she has only had one appointment so far, but it went well. She denies feeling depressed nor having any thoughts of suicide. Since she was last seen, she did resume her cholesterol medication. She reports she had leg cramps the first night, but otherwise has been tolerating it without problems. At her last office visit, she also complained of abdominal pain. Her omeprazole dose was increased for 2 weeks to see if that would help. She reports that it did seem to help some, but her pain hasn't resolved. She reports it is from her epigastric region across her right side. She describes it as a constant ache. She is still having some persistent nausea without vomiting. She states she has had a decreased appetite recently as well. She reports the diarrhea has resolved. She reports he (more content not included)... Normal [facility] 61-[place]-Csyzget DOrdered By: Jaxon Dennison on 09-02-2024 Vitamin D 25-Hydroxy 39.8 ng/mL [facility] Comment on above: Vitamin D 25(OH) Sta tus Range Deficiency <20 ng/mL (50nmol/L) Insufficiency 20 - 30 ng/mL (50 - 75 nmol/L) Sufficiency 30 - 100 ng/mL (75 - 250 nmol/L) Toxicity >100 ng/mL (>250 nmol/L) Absolute neutrophil countOrd ered By: Ann Dennison on 09-02-2024 Neutrophils (Bld) [#/Vol] 4.5 10*3/uL 2.0-7.7 [facility] Albumin to globulin ratioOrd ered By: Ann Dennison on 09-02-2024 Albumin/Globulin [Mass ratio] 1.0 {ratio} 0.9-2.4 [facility] Basophil percentageOrdered B y: Ann Dennison on 09-02-2024 Basophils/100 WBC (Bld) 0.4 % 0-1 [facility] Bilirubin, totalOrdered By: Ann Dennison on 09-02-2024 Bilirubin [Mass/Vol] 0.90 mg/dL 0.20-1.00 [facility] Comment on above: For patients on eltr ombopag therapy, use of Dimension Norman TBIL is not recommended. Blood urea nitrogen (BUN)/cr eatinine ratioOrdered By: Ann Dennison on 09-02-2024 Urea nitrogen/Creatinine [Mass ratio] 25.7 mg/mg High 10-20 [facility] CBC W/Diff, Automatedon 08-20 Absolute Lymph 2.04 X10 3/uL Normal 0.83-4.51 [facility] Comment on above: Performed By: #### L 100.0100, L500.4100, L506.1000, L500.4050 ####[facility] [address] [place], [address] Absolute Neut 4.5 X10 3/uL Normal 2.0-7.7 [facility] Comment on above: Performed By: #### L 100.0100, L500.4100, L506.1000, L500.4050 ####[facility] [address] [place], [address] Basophils/100 WBC (Bld) 0.4 % Normal 0-1 [facility] Comment on above: Performed By: #### L 100.0100, L500.4100, L506.1000, L500.4050 ####[facility] [address] [place], [address] Eosinophils/100 WBC (Bld) 1.5 % Normal 0-5 [facility] Comment on above: Performed By: #### L 100.0100, L500.4100, L506.1000, L500.4050 ####[facility] [address] [place], [address] Erythrocyte distribution width (RBC) [Ratio] 12.2 % Normal 11.6-14.6 [facility] Comment on above: Performed By: #### L 100.0100, L500.4100, L506.1000, L500.4050 ####[facility] [address] [place], [address] Hematocrit (Bld) [Volume fraction] 43.1 % Normal 37-47 [facility] Comment on above: Performed By: #### L 100.0100, L500.4100, L506.1000, L500.4050 ####[facility] [address] [place], [address] Hemoglobin (Bld) [Mass/Vol] 14.2 g/dL Normal 12.0-15.0 [facility] Comment on above: Performed By: #### L 100.0100, L500.4100, L506.1000, L500.4050 ####[facility] [address] [place], [address] IG% 0.400 Normal 0.0-0.9 [facility] Comment on above: Result Comment: IG% - Immature Granulocytes (promyelocytes, myelocytes and metamyelocytes) > 1% indicates that a LEFT SHIFT is Present. Performed By: #### L 100.0100, L500.4100, L506.1000, L500.4050 ####[facility] [address] [place], [address] Lymphocytes/100 WBC (Bld) 28.5 % Normal 19-41 [facility] Comment on above: Performed By: #### L 100.0100, L500.4100, L506.1000, L500.4050 ####[facility] [address] [place], [address] MCH (RBC) [Entitic mass] 30.6 pg Normal 27.0-32.0 [facility] Comment on above: Performed By: #### L 100.0100, L500.4100, L506.1000, L500.4050 ####[facility] [address] [place], [address] MCHC (RBC) [Mass/Vol] 32.9 g/dL Normal 32-36 [facility] Comment on above: Performed By: #### L 100.0100, L500.4100, L506.1000, L500.4050 ####[facility] [address] [place], [address] MCV (RBC) [Entitic vol] 92.9 fL Normal 81-99 [facility] Comment on above: Performed By: #### L 100.0100, L500.4100, L506.1000, L500.4050 ####[facility] [address] [place], [address] Monocytes/100 WBC (Bld) 6.0 % Normal 0-10 [facility] Comment on above: Performed By: #### L 100.0100, L500.4100, L506.1000, L500.4050 ####[facility] [address] [place], [address] Neutrophils/100 WBC (Bld) 63.2 % Normal 47-70 [facility] Comment on above: Performed By: #### L 100.0100, L500.4100, L506.1000, L500.4050 ####[facility] [address] [place], [address] Nucleated RBC (Bld) [#/Vol] 0 10*3/uL Normal 0-5 [facility] Comment on above: Performed By: #### L 100.0100, L500.4100, L506.1000, L500.4050 ####[facility] [address] [place], [address] Platelet mean volume (Bld) [Entitic vol] 10.4 fL Normal 6.2-12.0 [facility] Comment on above: Performed By: #### L 100.0100, L500.4100, L506.1000, L500.4050 ####[facility] [address] [place], [address] Platelets (Bld) [#/Vol] 246 10*3/uL Normal 150-450 [facility] Comment on above: Performed By: #### L 100.0100, L500.4100, L506.1000, L500.4050 ####[facility] [address] [place], [address] RBC (Bld) [#/Vol] 4.64 10*6/uL Normal 4.2-5.4 [facility] Comment on above: Performed By: #### L 100.0100, L500.4100, L506.1000, L500.4050 ####[facility] [address] [place], [address] RDW SD 41.6 fl Normal 35.1-43.9 [facility] Comment on above: Performed By: #### L 100.0100, L500.4100, L506.1000, L500.4050 ####[facility] [address] [place], [address] WBC (Bld) [#/Vol] 7.2 10*3/uL Normal 4.4-11.0 [facility] Comment on above: Performed By: #### L 100.0100, L500.4100, L506.1000, L500.4050 ####[facility] [address] [place], [address] Carbon dioxide measurementOr dered By: Ann Dennison on 09-02-2024 CO2 [Moles/Vol] 27.0 mmol/L 21.0-32.0 [facility] Chloride measurementOrdered By: Ann Dennison on 09-02-2024 Chloride [Moles/Vol] 109 mmol/L High 98-107 [facility] Comprehensive Metabolic Prof ilon 09-02-2024 Albumin [Mass/Vol] 3.6 g/dL Normal 3.2-5.0 [facility] Comment on above: Performed By: #### L 100.0100, L500.4100, L506.1000, L500.4050 ####[facility] [address] [place], [address] Albumin/Globulin [Mass ratio] 1.0 {ratio} Normal 0.9-2.4 [facility] Comment on above: Performed By: #### L 100.0100, L500.4100, L506.1000, L500.4050 ####[facility] [address] [place], [address] ALK P 79 U/L Normal 45-117 [facility] Comment on above: Performed By: #### L 100.0100, L500.4100, L506.1000, L500.4050 ####[facility] [address] [place], [address] ALT [Catalytic activity/Vol] 23 U/L Normal 13-56 [facility] Comment on above: Performed By: #### L 100.0100, L500.4100, L506.1000, L500.4050 ####[facility] [address] [place], [address] AST [Catalytic activity/Vol] 22 U/L Normal 15-37 [facility] Comment on above: Performed By: #### L 100.0100, L500.4100, L506.1000, L500.4050 ####[facility] [address] [place], [address] Bilirubin [Mass/Vol] 0.90 mg/dL Normal 0.20-1.00 [facility] Comment on above: Result Comment: For patients on eltrombopag therapy, use of Dimension Norman TBIL is not recommended. Performed By: #### L 100.0100, L500.4100, L506.1000, L500.4050 ####[facility] [address] [place], [address] BUN/CRE 25.7 RATIO High 10-20 [facility] Comment on above: Performed By: #### L 100.0100, L500.4100, L506.1000, L500.4050 ####[facility] [address] [place], [address] CA,Total 9.2 mg/dL Normal 8.5-10.1 [facility] Comment on above: Performed By: #### L 100.0100, L500.4100, L506.1000, L500.4050 ####[facility] [address] [place], [address] Chloride [Moles/Vol] 109 mmol/L High 98-107 [facility] Comment on above: Performed By: #### L 100.0100, L500.4100, L506.1000, L500.4050 ####[facility] [address] [place], [address] CO2 [Moles/Vol] 27.0 mmol/L Normal 21.0-32.0 [facility] Comment on above: Performed By: #### L 100.0100, L500.4100, L506.1000, L500.4050 ####[facility] [address] [place], [address] Creatinine [Mass/Vol] 0.78 mg/dL Normal 0.55-1.02 [facility] Comment on above: Result Comment: The validity of the calculated GFR GFRAA in patients over 70 years has not been determined. Clinical correlation is essential. Performed By: #### L 100.0100, L500.4100, L506.1000, L500.4050 ####[facility] [address] [place], [address] EST GFR - AA 96 mL/min Normal >60 [facility] Comment on above: Result Comment: Afri can English GFR Calc Performed By: #### L 100.0100, L500.4100, L506.1000, L500.4050 ####[facility] [address] [place], [address] GAP 4 Low 5-15 [facility] Comment on above: Performed By: #### L 100.0100, L500.4100, L506.1000, L500.4050 ####[facility] [address] [place], [address] GFR/1.73 sq M.predicted among non-blacks MDRD (S/P/Bld) [Vol rate/Area] 80 mL/min/{1.73_m2} Normal >60 [facility] Comment on above: Result Comment: Non- GFR Calc Performed By: #### L 100.0100, L500.4100, L506.1000, L500.4050 ####[facility] [address] [place], [address] Globulin (S) [Mass/Vol] 3.5 g/dL Normal 2.2-4.2 [facility] Comment on above: Performed By: #### L 100.0100, L500.4100, L506.1000, L500.4050 ####[facility] [address] [place], [address] Glucose [Mass/Vol] 100 mg/dL Normal 74-106 [facility] Comment on above: Result Comment: Fast ing Glucose result from 100 to 125 mg/dL suggests IMPAIRED HOMEOSTASIS per A.D.A. criteria. Performed By: #### L 100.0100, L500.4100, L506.1000, L500.4050 ####[facility] [address] [place], [address] Potassium [Moles/Vol] 4.3 mmol/L Normal 3.5-5.1 [facility] Comment on above: Performed By: #### L 100.0100, L500.4100, L506.1000, L500.4050 ####[facility] [address] [place], [address] Sodium [Moles/Vol] 140 mmol/L Normal 136-145 [facility] Comment on above: Performed By: #### L 100.0100, L500.4100, L506.1000, L500.4050 ####[facility] [address] [place], [address] T PROT 7.1 g/dL Normal 6.4-8.2 [facility] Comment on above: Performed By: #### L 100.0100, L500.4100, L506.1000, L500.4050 ####[facility] [address] [place], [address] Urea nitrogen [Mass/Vol] 20 mg/dL High 7-18 [facility] Comment on above: Performed By: #### L 100.0100, L500.4100, L506.1000, L500.4050 ####[facility] [address] [place], [address] Eosinophil percentageOrdered By: Ann Dennison on 09-02-2024 Eosinophils/100 WBC (Bld) 1.5 % 0-5 [facility] Erythrocyte distribution wid th ratioOrdered By: Ann Dennison on 09-02-2024 Erythrocyte distribution width (RBC) [Ratio] 12.2 % 11.6-14.6 [facility] Erythrocyte distribution wid th standard deviationOrdered By: Ann Dennison on 09-02-2024 Erythrocyte distribution width (RBC) [Entitic vol] 41.6 fL 35.1-43.9 [facility] Estimated glomerular filtrat ion rate (GFR) AmericanOrdered By: Ann Dennison on 09-02-2024 Estimated GFR (MDRD) Amer 96 mL/min >60 [facility] Comment on above: GFR Calc Glomerular filtration rate ( GFR) estimationOrdered By: Ann Dennison on 09-02-2024 Estimated GFR (MDRD) Non-Af Amer 80 mL/min >60 [facility] Comment on above: Non- GFR Calc Glucose measurementOrdered B y: Ann Dennison on 09-02-2024 Glucose [Mass/Vol] 100 mg/dL 74-106 [facility] Comment on above: Fasting Glucose resu lt from 100 to 125 mg/dL suggests IMPAIRED HOMEOSTASIS per A.D.A. criteria. Hematocrit Auto (Bld) [Volum e fraction]Ordered By: Ann Dennison on 09-02-2024 Hematocrit (Bld) [Volume fraction] 43.1 % 37-47 [facility] Hemoglobin measurementOrdere d By: Ann Dennison on 09-02-2024 Hemoglobin (Bld) [Mass/Vol] 14.2 g/dL 12.0-15.0 [facility] High density lipoprotein (HD L) measurementOrdered By: nAn Dennison on 09-02-2024 Cholesterol in HDL [Mass/Vol] 55 mg/dL >40 [facility] Comment on above: The drugs N-Acetylcy steine and Metamizole may falsely depress this assay. Reference Range HDL <40 mg/dL Low HDL Cholesterol HDL >or= 60 mg/dL High HDL Cholesterol Immature granulocytes/100 WB C Auto (Bld)Ordered By: Ann Dennison on 09-02-2024 Immature granulocytes/100 WBC (Bld) 0.400 % 0.0-0.9 [facility] Comment on above: IG% - Immature Granu locytes (promyelocytes, myelocytes and metamyelocytes) > 1% indicates that a LEFT SHIFT is Present. Laboratory - Chemistry and C hemistry - challengeOrdered By: Ann Dennison on 09-02-2024 AST [Catalytic activity/Vol] 22 U/L 15-37 [facility] Lipid Profileon 09-02-2024 Cholesterol [Mass/Vol] 230 mg/dL High 200 [facility] Comment on above: Result Comment: <200 mg/dL Desirable 200-240 mg/dL Borderline >240 mg/dL High Risk Performed By: #### L 100.0100, L500.4100, L506.1000, L500.4050 ####[facility] [address] [place], [address] Cholesterol in HDL [Mass/Vol] 55 mg/dL Normal [facility] Comment on above: Result Comment: The drugs N-Acetylcysteine and Metamizole may falsely depress this assay. Reference Range HDL <40 mg/dL Low HDL Cholesterol HDL >or= 60 mg/dL High HDL Cholesterol Performed By: #### L 100.0100, L500.4100, L506.1000, L500.4050 ####[facility] [address] [place], [address] Cholesterol in LDL [Mass/Vol] 157 mg/dL High 0-130 [facility] Comment on above: Performed By: #### L 100.0100, L500.4100, L506.1000, L500.4050 ####[facility] [address] [place], [address] Cholesterol in VLDL [Mass/Vol] 18 mg/dL Normal 5-40 [facility] Comment on above: Performed By: #### L 100.0100, L500.4100, L506.1000, L500.4050 ####[facility] [address] [place], [address] Triglyceride [Mass/Vol] 90 mg/dL Normal [facility] Comment on above: Result Comment: The drugs N-Acetylcysteine and Metamizole may falsely depress this assay. Serum Triglycerides Reference Interval Normal <150 mg/dL Borderline high 150 - 199 mg/dL High 200 - 499 mg/dL Very High > or = 500 mg/dL Performed By: #### L 100.0100, L500.4100, L506.1000, L500.4050 ####[facility] [address] [place], [address] Low density lipoprotein (LDL ) cholesterol measurementOrdered By: Ann Dennison on 09-02-2024 Cholesterol in LDL [Mass/Vol] 157 mg/dL High 0-130 [facility] Lymphocytes Auto (Unsp spec) [#/Vol]Ordered By: Ann Dennison on 09-02-2024 Lymphocytes (Bld) [#/Vol] 2.04 10*3/uL 0.83-4.51 [facility] Lymphocytes/100 WBC Auto (Un sp spec)Ordered By: Ann Dennison on 09-02-2024 Lymphocytes/100 WBC (Bld) 28.5 % 19-41 [facility] MCV (mean corpuscular volume ) determinationOrdered By: Ann Dennison on 09-02-2024 MCV (RBC) [Entitic vol] 92.9 fL 81-99 [facility] Mean corpuscular hemoglobin (MCH) determinationOrdered By: Ann Dennison on 09-02-2024 MCH (RBC) [Entitic mass] 30.6 pg 27.0-32.0 [facility] Mean corpuscular hemoglobin concentration (MCHC) determinationOrdered By: Ann Dennison on 09-02-2024 MCHC (RBC) [Mass/Vol] 32.9 g/dL 32-36 [facility] Mean platelet volume determi nationOrdered By: Ann Dennison on 09-02-2024 Platelet mean volume (Bld) [Entitic vol] 10.4 fL 6.2-12.0 [facility] Monocyte percentageOrdered B y: Ann Dennison on 09-02-2024 Monocytes/100 WBC (Bld) 6.0 % 0-10 [facility] Neutrophil percentageOrdered By: Ann Dennison on 09-02-2024 Neutrophils/100 WBC (Bld) 63.2 % 47-70 [facility] Nucleated red blood cell per centageOrdered By: Ann Dennison on 09-02-2024 Nucleated RBC/100 WBC (Bld) [Ratio] 0 % 0-5 [facility] Platelet countOrdered By: Sy Dennison on 09-02-2024 Platelets (Bld) [#/Vol] 246 10*3/uL 150-450 [facility] Potassium measurementOrdered By: Ann Dennison on 09-02-2024 Potassium [Moles/Vol] 4.3 mmol/L 3.5-5.1 [facility] RBC Auto (Bld) [#/Vol]Ordere d By: Ann Dennison on 09-02-2024 RBC (Bld) [#/Vol] 4.64 10*6/uL 4.2-5.4 [facility] Serum anion gap measurementO rdered By: Ann Dennison on 09-02-2024 Anion gap [Moles/Vol] 4 mmol/L Low 5-15 [facility] Serum globulin measurementOr dered By: Ann Dennison on 09-02-2024 Globulin (S) [Mass/Vol] 3.5 g/dL 2.2-4.2 [facility] Serum or plasma alanine moreno otransferase (ALT) measurementOrdered By: Ann Dennison on 09-02-2024 ALT [Catalytic activity/Vol] 23 U/L 13-56 [facility] Serum or plasma albumin kev urement (mass/volume)Ordered By: Ann Dennison on 09-02-2024 Albumin [Mass/Vol] 3.6 g/dL 3.2-5.0 [facility] Serum or plasma alkaline abdiel sphatase measurementOrdered By: Ann Dennison on 09-02-2024 ALP [Catalytic activity/Vol] 79 U/L 45-117 [facility] Serum or plasma calcium kev urement (mass/volume)Ordered By: Ann Dennison on 09-02-2024 Calcium [Mass/Vol] 9.2 mg/dL 8.5-10.1 [facility] Serum or plasma cholesterol measurement (mass/volume)Ordered By: Ann Dennison on 09-02-2024 Cholesterol [Mass/Vol] 230 mg/dL High <200 [facility] Comment on above: <200 mg/dL Desirable 200-240 mg/dL Borderline >240 mg/dL High Risk Serum or plasma creatinine m easurement (mass/volume)Ordered By: Ann Dennison on 09-02-2024 Creatinine [Mass/Vol] 0.78 mg/dL 0.55-1.02 [facility] Comment on above: The validity of the calculated GFR & GFRAA in patients over 70 years has not been determined. Clinical correlation is essential. Serum or plasma urea nitroge n measurement (mass/volume)Ordered By: Ann Dennison on 09-02-2024 Urea nitrogen [Mass/Vol] 20 mg/dL High 7-18 [facility] Sodium levelOrdered By: Aden Dennison on 09-02-2024 Sodium [Moles/Vol] 140 mmol/L 136-145 [facility] Total proteinOrdered By: Jordin Dennison on 09-02-2024 Protein [Mass/Vol] 7.1 g/dL 6.4-8.2 [facility] Triglycerides measurementOrd ered By: Ann Dennison on 09-02-2024 Triglyceride [Mass/Vol] 90 mg/dL <199 [facility] Comment on above: The drugs N-Acetylcy steine and Metamizole may falsely depress this assay.Serum Triglycerides Reference Interval Normal <150 mg/dL Borderline high 150 - 199 mg/dL High 200 - 499 mg/dL Very High > or = 500 mg/dL Very low density lipoprotein (VLDL) cholesterol measurementOrdered By: Ann Dennison on 09-02-2024 VLDL Cholesterol 18 mg/dL 5-40 [facility] Vitamin D,25 Hydroxyon 09-02 Vitamin D 25-OH 39.8 ng/mL Normal [facility] Comment on above: Result Comment: Haley min D 25(OH) Status Range Deficiency <20 ng/mL (50nmol/L) Insufficiency 20 - 30 ng/mL (50 - 75 nmol/L) Sufficiency 30 - 100 ng/mL (75 - 250 nmol/L) Toxicity >100 ng/mL (>250 nmol/L) Performed By: #### L 100.0100, L500.4100, L506.1000, L500.4050 ####[facility] [address] [place], [address] White blood cell (WBC) count Ordered By: Ann Dennison on 09-02-2024 WBC (Bld) [#/Vol] 7.2 10*3/uL 4.4-11.0 [facility] Internal Medicine Office Vis iton 09-01-2024 Internal Medicine Office Visit [facility] [address] [place], [place] [address] OFFICE VISIT Date of Service: 09/02/24 MR#: [id number] Acct: [id number] Name: EDWARD PARADA Rep #: [id number] : 1960 Provider: Dr. 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 Accompanied by: Self Is patient in pain?: Yes (abd upper / mid) Pain scale (1-10): 7 Allergies No Known Allergies Allergy (Verified 09/02/24 14:25) Medications ???Medication ???Instructions ???Recorded ???Confirmed ???Type cholecalciferol (vitamin D3) 10 10 mcg PO DAILY 06/14/23 09/02/24 History mcg (400 unit) capsule magnesium 200 mg tablet 200 mg PO DAILY 06/14/23 09/02/24 History fluticasone propionate 50 1 spray intranasal DAILY PRN 03/20/24 09/02/24 History mcg/actuation nasal spray,suspension (Flonase Allergy Relief) multivitamin with minerals 1 cap PO DAILY 03/20/24 09/02/24 History omeprazole 20 mg capsule,delayed 20 mg PO DAILY #90 caps 08/25/24 09/02/24 Rx release citalopram 20 mg tablet 20 mg PO DAILY #90 tabs 09/02/24 09/02/24 Rx melatonin 10 mg capsule 10 mg PO HS PRN 09/02/24 09/02/24 History ondansetron 4 mg disintegrating 4 mg PO Q8H PRN nausea and 01/14/25 01/14/25 Rx tablet vomiting #20 tabs PFSH Medical History Wears glasses Post-menopausal Anxiety Injury of head and neck Gastric reflux Former smoker History of irregular heartbeat High cholesterol Hiatal hernia Surgical History History of salpingectomy S/P laparoscopic cholecystectomy Hx of esophagogastroduodenoscopy Hx of colonoscopy Hx of tonsillectomy Encounter for Essure implantation History of removal of cyst Family History Mother Diabetes History of blood clots Anxiety Hypertension Father Diabetes Hypertension Pancreatic cancer Sister History of blood clots Lymphedema Grandmother Diabetes Social History (Updated 09/02/24 @ 14:[address] 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 (2) pets and animals: dog(s) history of recent travel: No Smoking Status: Former smoker quit date: 08/20/94 pack-years: 5 Tobacco: How many years used: 5 Electronic Cigarette Use: not used alcohol intake: never substance use type: does not use diet: low carbohydrate caffeine: Yes (2) Type: coffee frequency: 3-4 times per week ni/episcopal: Mosque seatbelt use: always do you feel safe at home: Yes additional social history: - Lindsay- on disability Female Reproductive History Menstrual Date of menopause: 12/24/13 Ab induced: 1 Ab spontaneous: 1 HPI HPI Chief Complaint: hernia issues Details: EDWARD PARADA, is a 64 F who presents to the office today for a follow up. She is up to date on her routine blood work and screening. She did get her flu and COVID vaccines. She doesn't smoke and does need refills. She reports she is eating healthy but states it is a work in progress. She is also staying active with work. The patient reports her GERD is still overall well controlled on her current medications. She has been on celexa for about 12 years. She takes it for anxiety. The patient was tried on wellbutrin previously to help with her weight, however, it increased her anxiety, so she went back to the celexa. She is taking it as prescribed without problems. She reports she is having some flare ups of her anxiety. She reports she is feeling more edgy. She states she does have stressors related to the health of family members. She will be seeing a counselor starting tomorrow. She would like to try increasing her dose. She denies feeling depressed nor having any thoughts of suicide. She reports she stopped taking the cholesterol medication in April. She reports her told her it wasn't good to be on it for care home, so she stopped taking it. She reports she wasn't having problems with the medication. The patient reports she is still having some numbness in her tongue, but states it is no longer in her cheek. The patient reports about 2 weeks ago, she developed a stomach bug which got better with nausea, vomiting and diarrhea. She r (more content not included)... Normal [facility] SCRN MAMM (CAD)W/KEY BILATo n 07-03-2024 SCRN MAMM (CAD)W/KEY BILAT [facility] Imaging Services [address] [place] [address] SCRN MAMM (CAD)W/KEY BILAT MR#: [id number] Acct: [id number] Name: EDWARD PARADA Rep #: [id number] : 1960 F 63 From: Killian ayala MD PCP: Dr. Ann Dennison MD Status: REG [facility] Study: SCRN MAMM (CAD)W/KEY BILAT Date of Exam: 06/20 12/11 Exam# [id number] Ordering Dr: Tiffanie Nelson [facility] [id number] MAMMOGRAPHY - BILATERAL SCREENING REASON FOR EXAM: Female, 63 years old. Routine annual screening examination. PERTINENT HISTORY: Non-contributory. TECHNIQUE: Digital bilateral breast key (3D mammographic acquisition) in the CC and MLO projections. 2-D mediolateral oblique (MLO) and craniocaudad (CC) views of both breasts were obtained. CAD: Full Field Digital Mammography with Computer Added Detection was performed. COMPARISON: Comparison is made with prior study July 02, 2023. FINDINGS: Breast Composition: The breasts are almost entirely fatty. There are no dominant masses or suspicious calcifications. Stable small bilateral fat containing axillary lymph nodes. No other significant abnormalities are identified. There has been no significant change since the prior study. BI/SCRN MAMM (CAD)W/KEY BILAT IMPRESSION: Stable bilateral screening mammogram. Yearly follow-up mammogram recommended. (A) ASSESSMENT CATEGORY: BIRADS Category 2: Benign. A letter regarding these results will be sent to the patient by the facility within 30 days. Approximately 10% of breast cancers are not detected by mammography. A normal mammogram should not delay biopsy of a clinically suspicious abnormality. [id number] Electronically Signed: Killian Christie MD at 15:43 EST , CC: KEYLA Nelson; Dr. Ann Dennison MD Commercial Electrician: Signed Normal [facility] Cervical or vaginal specimen microscopic examination by liquid based cytology (reportOrdered By: Tiffanie Nelson on 11-30-2023 Cytology report Cyto stain.thin prep Doc (Cvx/Vag) Comment . [facility] Comment on above: Criteria not met, HP V Genotype not performed.Performed at: - [address] [id number] Director: Shira Edge MD, Phone: [phone] at: = - [facility] [id number] Director: Shira Edge MD, Phone: [phone] Cervical or vagninal specime n microscopic examination by cytology stain (reported asOrdered By: Tiffanie Nelson on 11-30-2023 Cytology report Cyto stain Doc (Cvx/Vag) Comment . [facility] Comment on above: The Pap smear is a s creening test designed to aid in thedetection of premalignant and malignant conditions of theuterine cervix. It is not a diagnostic procedure andshould not be used as the sole means of detecting cervicalcancer. Both false-positive and false-negative reports dooccur. Detection in cervical specim en of any of human papilloma virus (HPV) 16, 18, 31, 33,Ordered By: Tiffanie Nelson on 11-30-2023 HPV 16+18+31+33+35+39+45+5 1+52+56+58+59+66+68 DNA Probe+sig amp Ql (Cvx) Negative Negative [facility] Comment on above: This nucleic acid am plification test detects fourteen high- risk HPV types (16,18,31,33,35,39,45,51,52,56,58,59,66,68)without differentiation. Laboratory - CytologyOrdered By: Tiffanie Nelson on 11-30-2023 Accounts Adjustable Clerk Cyto stain Nom (Cvx/Vag) [ID] Comment . [facility] Comment on above: Megan kennedy, 5Th Grade Teacher (ASCP) Laboratory - Miscellaneous t estsOrdered By: Tiffanie Nelson on 11-30-2023 Service comment (Unsp spec) [Interp] . . [facility] Thin prep Papanicolaou smear with manual screeningOrdered By: Tiffanie Nelson on 11-30-2023 Thin prep Papanicolaou smear with manual screening Comment . [facility] Comment on above: NEGATIVE FOR INTRAEP ITHELIAL LESION OR MALIGNANCY. This liquid based Th inPrep(R) pap test was screened withthe use of an image guided system. Basophil percentageOrdered B y: Alcira Vizcarra on 07-23-2023 Bilirubin [Mass/Vol] 0.60 mg/dL 0.20-1.00 [facility] Comment on above: For patients on eltr ombopag therapy, use of Dimension Norman TBIL is not recommended. Protein [Mass/Vol] 7.0 g/dL 6.4-8.2 [facility] Direct bilirubinOrdered By: Alcira Vizcarra on 07-23-2023 Bilirubin.direct [Mass/Vol] 0.15 mg/dL 0.00-0.30 [facility] Laboratory - Chemistry and C hemistry - challengeOrdered By: [facility] on 07-23-2023 ALP [Catalytic activity/Vol] 68 U/L 45-117 [facility] ALT [Catalytic activity/Vol] 47 U/L 13-56 [facility] Globulin (S) [Mass/Vol] 3.4 g/dL 2.2-4.2 [facility] Serum or plasma albumin kev urement (mass/volume)Ordered By: [facility] on 07-23-2023 Albumin [Mass/Vol] 3.6 g/dL 3.2-5.0 [facility] Thin prep Papanicolaou smear with manual screeningOrdered By: [facility] on 07-23-2023 Thin prep Papanicolaou smear with manual screening 27 U/L 15-37 [facility] No Panel InformationOrdered By: Henry Vasques on 05-19-2023 Troponin I High Sensitivity 7 pg/mL 3.0-54.0 [facility] Comment on above: Please Note: New Roseanne t Units and Gender Specific Reference Ranges. For more information see Policy Stat Procedure Norman High Sensitivity Troponin (TNIH) and attachments. Absolute lymphocyte countOrd ered By: Henry Vasques on 05-18-2023 Lymphocytes Auto (Unsp spec) [#/Vol] 3.20 10*3/uL 0.83-4.51 [facility] Basophil percentageOrdered B y: Henry Vasques on 05-18-2023 Basophils/100 WBC (Bld) 0.4 % 0-1 [facility] Chloride [Moles/Vol] 110 mmol/L 98-107 [facility] Eosinophils/100 WBC (Bld) 1.4 % 0-5 [facility] Glucose [Mass/Vol] 114 mg/dL 74-106 [facility] Comment on above: Fasting Glucose resu lt from 100 to 125 mg/dL suggests IMPAIRED HOMEOSTASIS per A.D.A. criteria. Neutrophils (Bld) [#/Vol] 4.0 10*3/uL 2.0-7.7 [facility] Neutrophils/100 WBC (Bld) 50.8 % 47-70 [facility] Potassium [Moles/Vol] 3.7 mmol/L 3.5-5.1 [facility] Sodium [Moles/Vol] 142 mmol/L 136-145 [facility] WBC (Bld) [#/Vol] 8.0 10*3/uL 4.4-11.0 [facility] Blood erythrocytes count (nu mber/volume)Ordered By: Henry Vasques on 05-18-2023 RBC (Bld) [#/Vol] 4.27 10*6/uL 4.2-5.4 [facility] Blood hemoglobin measurement (mass/volume)Ordered By: Henry Vasques on 05-18-2023 Hemoglobin (Bld) [Mass/Vol] 13.0 g/dL 12.0-15.0 [facility] Blood lymphocytes/100 leukoc ytesOrdered By: Henry Vasques on 05-18-2023 Lymphocytes/100 WBC (Bld) 40.3 % 19-41 [facility] Blood monocytes/100 leukocyt esOrdered By: Henry Vasques on 05-18-2023 Monocytes/100 WBC (Bld) 6.5 % 0-10 [facility] Blood platelet mean volumeOr dered By: Henry Vasques on 05-18-2023 Platelet mean volume (Bld) [Entitic vol] 10.3 fL 6.2-12.0 [facility] Determination of erythrocyte mean corpuscular volume (MCV)Ordered By: Henry Vasques on 05-18-2023 MCV (RBC) [Entitic vol] 92.3 fL 81-99 [facility] Hematocrit Auto (Bld) [Volum e fraction]Ordered By: Henry Vasques on 05-18-2023 Hematocrit (Bld) [Volume fraction] 39.4 % 37-47 [facility] Laboratory - Chemistry and C hemistry - challengeOrdered By: Henry Vasques on 05-18-2023 CO2 [Moles/Vol] 30.0 mmol/L 21.0-32.0 [facility] Urea nitrogen/Creatinine [Mass ratio] 21.9 mg/mg 10-20 [facility] Laboratory - Hematology and Cell countsOrdered By: Henry Vasques on 05-18-2023 Erythrocyte distribution width (RBC) [Entitic vol] 41.0 fL 35.1-43.9 [facility] Erythrocyte distribution width (RBC) [Ratio] 12.2 % 11.6-14.6 [facility] Immature granulocytes/100 WBC (Bld) 0.600 % 0.0-0.9 [facility] Comment on above: IG% - Immature Granu locytes (promyelocytes, myelocytes and metamyelocytes) > 1% indicates that a LEFT SHIFT is Present. MCH (RBC) [Entitic mass] 30.4 pg 27.0-32.0 [facility] Nucleated RBC/100 WBC (Bld) [Ratio] 0 % 0-5 [facility] MCHC Auto (RBC) [Mass/Vol]Or dered By: Henry Vasques on 05-18-2023 MCHC (RBC) [Mass/Vol] 33.0 g/dL 32-36 [facility] No Panel InformationOrdered By: Henry Vasques on 05-18-2023 Estimated Creatinine Clearance Calc 56.98 ml/min [facility] Estimated GFR (MDRD) Amer 91 mL/min >60 [facility] Comment on above: GFR Calc Estimated GFR (MDRD) Non-Af Amer 75 mL/min >60 [facility] Comment on above: Non- GFR Calc Platelets bldOrdered By: Edgar Vasques on 05-18-2023 Platelets (Bld) [#/Vol] 245 10*3/uL 150-450 [facility] Serum or plasma calcium kev urement (mass/volume)Ordered By: Henry Vasques on 05-18-2023 Calcium [Mass/Vol] 9.3 mg/dL 8.5-10.1 [facility] Serum or plasma creatinine m easurement (mass/volume)Ordered By: Henry Vasques on 05-18-2023 Creatinine [Mass/Vol] 0.82 mg/dL 0.55-1.02 [facility] Comment on above: The validity of the calculated GFR & GFRAA in patients over 70 years has not been determined. Clinical correlation is essential. Serum or plasma urea nitroge n measurement (mass/volume)Ordered By: Henry Vasques on 05-18-2023 Urea nitrogen [Mass/Vol] 18 mg/dL 7-18 [facility] Thin prep Papanicolaou smear with manual screeningOrdered By: Henry Vasques on 05-18-2023 Thin prep Papanicolaou smear with manual screening 2 5-15 [facility] Final Surgical Pathology Rep david 04-17-2023 Final Surgical Pathology Report . Pathology Reports Accession: Collected Date/Time: Received Date/Time: Pathologist: [id number] 04/13/2023 10:09 EDT 04/16/2023 12:57 EDT MD ELMA DALY Final Surgical Pathology Report DIAGNOSIS: RIGHT LEFT COLON, BIOPSY: - NO SPECIFIC PATHOLOGIC CHANGES - NEGATIVE FOR COLITIS CLINICAL INFORMATION: SEE CHART Procedure: COLONOSCOPY Preoperative diagnosis: DIARRHEA Postoperative diagnosis: DIARRHEA SPECIMEN: A TISSUE, right and left colon GROSS DESCRIPTION: All parts labelled with patient name and [id number] Received in formalin labeled right and left colon biopsies are multiple morejon-pink tissue fragments aggregating 1.0 x 0.3 x 0.1 cm. TS-1 Soha Bashir, Grossing Accountant Assistant/ Dr. Rolo Garsia, Pathologist Dictated by Soha Bashir MICROSCOPIC DESCRIPTION: The microscopic examination is performed, except in the case of Gross Only. Electronically Signed by Pathology Report verified by [facility] ELMA DALY MD Sign out Date: 04/17/2023 08:27 Performing Lab: [facility], [address] [place] [address] Pathology Dept Disclaimer If ancillary studies were utilized, the following Laboratory Developed Test (LDT) disclaimer will apply: Under CLIA requirements, [facility] is qualified to perform high complexity testing. For all ancillary stains, positive and negative controls stain appropriately. Performance characteristics of immunohistochemical and chromogenic in-situ hybridization tests have been determined by [facility]. These tests are used for clinical purposes, They should not be regarded as investigational or for research. Normal [facility] [place] ENDOon 04-10-2023 TTG Ab (IgA) <4.0 Normal <=3.9 [facility] [place] Comment on above: Result Comment: Effe ctive 03/12/2023: Evaluation of Transglutaminase Ab (IgA) results: Negative: Less than 4.0 Weak positive: 4.0 to 10.0 Positive: Greater than 10.0 Transglutaminase Ab is present in approximately 95% to 100% of patients with celiac disease and 80% of patients with dermatitis herpetiformis. The antibody is rarely found in other conditions. Transglutaminase Ab levels will decrease or increase depending on the removal or reintroduction of gluten into the diet. Patients who are IgA deficient develop celiac disease more frequently than individuals who have an intact IgA system. Therefore, gliadin and transglutaminase IgA antibodies may be absent in patients with celiac disease. IgG antibodies to gliadin are especially helpful in IgA deficient patients. These test results were obtained with the [employer] R-tTG IgA [employer]. R-tTG IgA values obtained with different manufacturers' assay methods may not be used interchangeably. Performed By: #### E NDO, GLIAD #### [address] [address] #### CRP #### [address] [address] GLIADon 04-10-2023 Gliadin Ab IgA <20 Normal <=19 [facility] ([place] Comment on above: Result Comment: Glia din IgG and IgA Ab Interpretation (effective 07/15/07): Result Units Negative <20 Weak Positive 20-30 Moderate to Strong Positive >30 Both IgG and IgA antibodies to gliadin are present in most patients with celiac disease (CD). However, antibody to gliadin may be present in Crohn's disease, dermatitis herpetiformis or in subjects with no clinical evidence of intestinal disease. In healthy individuals with a family history of CD, the antibodies may precede the clinical onset of disease in approximately 25% of the subjects. Gliadin antibody levels will decrease or increase depending on the removal or reintroduction of gluten into the diet. Patients who are IgA deficient develop celiac disease more frequently than individuals who have an intact IgA system. Therefore, gliadin and transglutaminase IgA antibodies may be absent in patients with celiac disease. IgG antibodies to gliadin are especially helpful in IgA deficient patients. A negative result indicates no gliadin antibody or levels below the negative cut-off of the assay. Results of this assay should be used in conjunction with clinical findings and other serological tests. These test results were obtained with the [employer] QUANTA Lite Gliadin IgG II and Gliadin IgA II. Gliadin values obtained with different manufacturers' assay methods may not be used interchangeably. Performed By: #### E NDO, GLIAD #### [place] [address] #### CRP #### [place] [id number] Gliadin Ab IgG <20 Normal <=19 [facility] ([place]) Comment on above: Result Comment: Glia din IgG and IgA Ab Interpretation (effective 07/15/07): Result Units Negative <20 Weak Positive 20-30 Moderate to Strong Positive >30 Both IgG and IgA antibodies to gliadin are present in most patients with celiac disease (CD). However, antibody to gliadin may be present in Crohn's disease, dermatitis herpetiformis or in subjects with no clinical evidence of intestinal disease. In healthy individuals with a family history of CD, the antibodies may precede the clinical onset of disease in approximately 25% of the subjects. Gliadin antibody levels will decrease or increase depending on the removal or reintroduction of gluten into the diet. Patients who are IgA deficient develop celiac disease more frequently than individuals who have an intact IgA system. Therefore, gliadin and transglutaminase IgA antibodies may be absent in patients with celiac disease. IgG antibodies to gliadin are especially helpful in IgA deficient patients. A negative result indicates no gliadin antibody or levels below the negative cut-off of the assay. Results of this assay should be used in conjunction with clinical findings and other serological tests. These test results were obtained with the [employer] QUANTA Lite Gliadin IgG II and Gliadin IgA II. Gliadin values obtained with different manufacturers' assay methods may not be used interchangeably. Performed By: #### E LORAO, GLIAD #### [place] [address] #### CRP #### [address] [address] CRPon 04-09-2023 C-Reactive Protein 0.4 mg/dL High 0.0-0.3 [facility] ([place]) Comment on above: Performed By: #### E NDO, GLIAD #### [place] [address] #### CRP #### [place] [id number] LABORATORYOrdered By: SYSTEM SYSTEM on 04-09-2023 CRP [Mass/Vol] 0.4 mg/dL Invalid Interpretation Code 0.0 - 0.3 mg/dL AO ADM SS .Auto Diffon 03-07-2023 Basophil, Absolute 0.0 10 3/mcL Normal 0.0-0.2 [facility] ([place]) Comment on above: Performed By: #### C BC, VIDH, GFR, LIPID, ADIFF, CMP, ANEU #### [address] [address] Basophils/100 WBC (Bld) 0.5 % Normal 0.0-2.5 [facility] ([place]) Comment on above: Performed By: #### C BC, VIDH, GFR, LIPID, ADIFF, CMP, ANEU #### [address] [address] Eosinophil, Absolute 0.2 10 3/mcL Normal 0.0-0.4 [facility] ([place]) Comment on above: Performed By: #### C BC, VIDH, GFR, LIPID, ADIFF, CMP, ANEU #### [address] [address] Eosinophils/100 WBC (Bld) 2.2 % Normal 0.0-7.0 [facility] ([place] Comment on above: Performed By: #### C BC, VIDH, GFR, LIPID, ADIFF, CMP, ANEU #### [address] [address] Lymphocyte, Absolute 2.4 10 3/mcL Normal 0.8-3.9 [facility] ([place] Comment on above: Performed By: #### C BC, VIDH, GFR, LIPID, ADIFF, CMP, ANEU #### [address] [address] Lymphocytes/100 WBC (Bld) 33.6 % Normal 10.0-50.0 [facility] ([place] Comment on above: Performed By: #### C BC, VIDH, GFR, LIPID, ADIFF, CMP, ANEU #### [address] [address] Monocyte, Absolute 0.5 10 3/mcL Normal 0.2-1.0 [facility] ([place]) Comment on above: Performed By: #### C BC, VIDH, GFR, LIPID, ADIFF, CMP, ANEU #### [address] [address] Monocytes/100 WBC (Bld) 7.1 % Normal 1.7-13.0 [facility] ([place] Comment on above: Performed By: #### C BC, VIDH, GFR, LIPID, ADIFF, CMP, ANEU #### [address] [address] Neutrophils/100 WBC (Bld) 56.6 % Normal 37.0-80.0 [facility] ([place] Comment on above: Performed By: #### C BC, VIDH, GFR, LIPID, ADIFF, CMP, ANEU #### [address] [address] .GFRon 03-07-2023 GFR Non- 67 ml/min/1.73sqm Normal [facility] ([place] Comment on above: Result Comment: GFR Population mean for , Non- Americans Ages 20-29 = 116 mL/min/1.73 sq.m. Ages 30-39 = 107 mL/min/1.73 sq.m. Ages 40-49 = 99 mL/min/1.73 sq.m. Ages 50-59 = 93 mL/min/1.73 sq.m. Ages 60-69 = 85 mL/min/1.73 sq.m. Ages 70+ = 75 mL/min/1.73 sq.m. Chronic Kidney Disease: Less than 60 mL/min/1.73 square meters End Stage Renal Disease: Less than 15 mL/min/1.73 square meters Performed By: #### C BC, VIDH, GFR, LIPID, ADIFF, CMP, ANEU ####[address] [address] GFR 81 ml/min/1.73sqm Normal [facility] ([place] Comment on above: Result Comment: GFR Population mean for , Non- Americans Ages 20-29 = 116 mL/min/1.73 sq.m. Ages 30-39 = 107 mL/min/1.73 sq.m. Ages 40-49 = 99 mL/min/1.73 sq.m. Ages 50-59 = 93 mL/min/1.73 sq.m. Ages 60-69 = 85 mL/min/1.73 sq.m. Ages 70+ = 75 mL/min/1.73 sq.m. Chronic Kidney Disease: Less than 60 mL/min/1.73 square meters End Stage Renal Disease: Less than 15 mL/min/1.73 square meters Performed By: #### C BC, VIDH, GFR, LIPID, ADIFF, CMP, ANEU ####[address] [address] .NEUABSon 03-07-2023 Neutrophil, Absolute 4.1 10 3/mcL Normal 2.9-6.2 [facility] ([place] Comment on above: Performed By: #### C BC, VIDH, GFR, LIPID, ADIFF, CMP, ANEU #### [address] [address] CBCon 03-07-2023 Erythrocyte distribution width (RBC) [Ratio] 12.9 % Normal 11.5-14.5 [facility] ([place] Comment on above: Performed By: #### C BC, VIDH, GFR, LIPID, ADIFF, CMP, ANEU #### [address] [address] Hematocrit (Bld) [Volume fraction] 44.0 % Normal 37.0-47.0 [facility] ([place] Comment on above: Performed By: #### C BC, VIDH, GFR, LIPID, ADIFF, CMP, ANEU #### [address] [address] Hgb 14.7 G/dL Normal 12.0-16.0 [facility] ([place] Comment on above: Performed By: #### C BC, VIDH, GFR, LIPID, ADIFF, CMP, ANEU #### [address] [address] MCH (RBC) [Entitic mass] 29.9 pg Normal 27.0-31.2 [facility] ([place] Comment on above: Performed By: #### C BC, VIDH, GFR, LIPID, ADIFF, CMP, ANEU #### [address] [address] MCHC 33.5 G/dL Normal 33.0-37.0 [facility] ([place] Comment on above: Performed By: #### C BC, VIDH, GFR, LIPID, ADIFF, CMP, ANEU #### [address] [address] MCV (RBC) [Entitic vol] 89.4 fL Normal 80.0-94.0 [facility] ([place] Comment on above: Performed By: #### C BC, VIDH, GFR, LIPID, ADIFF, CMP, ANEU #### [address] [address] Platelet 239 10 3/mcL Normal 130-400 [facility] ([place] Comment on above: Performed By: #### C BC, VIDH, GFR, LIPID, ADIFF, CMP, ANEU #### [address] [address] Platelet mean volume (Bld) [Entitic vol] 9.3 fL Normal 7.4-10.4 [facility] ([place] Comment on above: Performed By: #### C BC, VIDH, GFR, LIPID, ADIFF, CMP, ANEU #### [address] [address] RBC 4.93 10 6/mcL Normal 4.20-5.40 [facility] ([place] Comment on above: Performed By: #### C BC, VIDH, GFR, LIPID, ADIFF, CMP, ANEU #### [address] [address] WBC 7.2 10 3/mcL Normal 4.6-10.8 [facility] ([place]) Comment on above: Performed By: #### C BC, VIDH, GFR, LIPID, ADIFF, CMP, ANEU #### [address] [address] CMPon 03-07-2023 Albumin Level 4.0 G/dL Normal 3.4-4.8 [facility] ([place] Comment on above: Performed By: #### C BC, VIDH, GFR, LIPID, ADIFF, CMP, ANEU ####[address] [place], [place] [address] Albumin/Globulin [Mass ratio] 1.3 {ratio} Normal 1.1-2.5 [facility] ([place] Comment on above: Performed By: #### C BC, VIDH, GFR, LIPID, ADIFF, CMP, ANEU ####[address] [place], [place] [address] ALP [Catalytic activity/Vol] 57 U/L Normal 40-135 [facility] ([place]) Comment on above: Performed By: #### C BC, VIDH, GFR, LIPID, ADIFF, CMP, ANEU ####[address] [place], [place] [address] ALT [Catalytic activity/Vol] 19 U/L Normal 14-59 [facility] ([place]) Comment on above: Performed By: #### C BC, VIDH, GFR, LIPID, ADIFF, CMP, ANEU ####[address] [place], [place] [address] AST [Catalytic activity/Vol] 16 U/L Normal 10-40 [facility] ([place]) Comment on above: Performed By: #### C BC, VIDH, GFR, LIPID, ADIFF, CMP, ANEU ####[address] [place], [place] [address] Bili Total 0.5 mg/dL Normal 0.2-1.0 [facility] ([place]) Comment on above: Result Comment: Use of this assay is not recommended for patients undergoing treatment with eltrombopag due to the potential for falsely elevated results. Performed By: #### C BC, VIDH, GFR, LIPID, ADIFF, CMP, ANEU ####[address] [place], [place] [address] BUN/Creatinine Ratio 21 ratio Normal 7-27 [facility] ([place]) Comment on above: Performed By: #### C BC, VIDH, GFR, LIPID, ADIFF, CMP, ANEU ####[address] [place], [place] [address] Calcium [Mass/Vol] 9.4 mg/dL Normal 8.4-10.2 [facility] ([place]) Comment on above: Performed By: #### C BC, VIDH, GFR, LIPID, ADIFF, CMP, ANEU ####[address] [place], [place] [address] Chloride [Moles/Vol] 107 mmol/L Normal 98-107 [facility] ([place]) Comment on above: Performed By: #### C BC, VIDH, GFR, LIPID, ADIFF, CMP, ANEU ####[address] [place], [place] [address] CO2 [Moles/Vol] 28 mmol/L Normal 23-31 [facility] ([place]) Comment on above: Performed By: #### C BC, VIDH, GFR, LIPID, ADIFF, CMP, ANEU ####[address] [place], [place] [address] Creatinine [Mass/Vol] 0.86 mg/dL Normal 0.55-1.02 [facility] ([place]) Comment on above: Performed By: #### C BC, VIDH, GFR, LIPID, ADIFF, CMP, ANEU ####[address] [place], [place] [address] Electrolyte Balance 8.0 mEq/L Normal 4.0-15.0 [facility] ([place]) Comment on above: Performed By: #### C BC, VIDH, GFR, LIPID, ADIFF, CMP, ANEU ####[address] [place], [place] [address] Globulin 3.0 G/dL Normal [facility] ([place]) Comment on above: Performed By: #### C BC, VIDH, GFR, LIPID, ADIFF, CMP, ANEU ####[address] [place], [place] [address] Glucose [Mass/Vol] 102 mg/dL Normal 80-115 [facility] ([place]) Comment on above: Performed By: #### C BC, VIDH, GFR, LIPID, ADIFF, CMP, ANEU ####[address] [place], [place] [address] Potassium [Moles/Vol] 4.8 mmol/L Normal 3.5-5.1 [facility] ([place]) Comment on above: Performed By: #### C BC, VIDH, GFR, LIPID, ADIFF, CMP, ANEU ####[address] [place], [place] [address] Sodium [Moles/Vol] 143 mmol/L Normal 136-145 [facility] ([place]) Comment on above: Performed By: #### C BC, VIDH, GFR, LIPID, ADIFF, CMP, ANEU ####[address] [place], [place] [address] Total Protein 7.0 G/dL Normal 6.4-8.2 [facility] ([place] Comment on above: Performed By: #### C BC, VIDH, GFR, LIPID, ADIFF, CMP, ANEU ####[address] [place], [place] [address] Urea nitrogen [Mass/Vol] 18 mg/dL Normal 7-18 [facility] ([place] Comment on above: Performed By: #### C BC, VIDH, GFR, LIPID, ADIFF, CMP, ANEU ####[address] [place], [place] [address] LABORATORYOrdered By: SYSTEM SYSTEM on 03-07-2023 25-hydroxyvitamin D3 [Mass/Vol] 25.5 ng/mL Invalid Interpretation Code AO ADM SS Comment on above: Interpretive Data: I nterpretive Values Based on Total 25(OH) Vitamin D: Deficient <20 ng/mL Insufficient 20 - <30 ng/mL Sufficient 30-100 ng/mL Albumin BCP dye [Mass/Vol] 4.0 G/dL Invalid Interpretation Code 3.4 - 4.8 G/dL AO ADM SS Albumin/Globulin [Mass ratio] 1.3 {ratio} Invalid Interpretation Code 1.1 - 2.5 ratio AO ADM SS ALP [Catalytic activity/Vol] 57 U/L Invalid Interpretation Code 40 - 135 U/L AO ADM SS ALT With P-5'-P [Catalytic activity/Vol] 19 U/L Invalid Interpretation Code 14 - 59 U/L AO ADM SS AST With P-5'-P [Catalytic activity/Vol] 16 U/L Invalid Interpretation Code 10 - 40 U/L AO ADM SS Basophil, Absolute 0.0 103/mcL Invalid Interpretation Code 0.0 - 0.2 10^3/mcL AO Workflow SS Basophils/100 WBC (Bld) 0.5 % Invalid Interpretation Code 0.0 - 2.5 % AO Workflow SS Bilirubin [Mass/Vol] 0.5 mg/dL Invalid Interpretation Code 0.2 - 1.0 mg/dL AO ADM SS Comment on above: Interpretive Data: U se of this assay is not recommended for patients undergoing treatment with eltrombopag due to the potential for falsely elevated results. Calcium [Mass/Vol] 9.4 mg/dL Invalid Interpretation Code 8.4 - 10.2 mg/dL AO ADM SS Chloride [Moles/Vol] 107 mmol/L Invalid Interpretation Code 98 - 107 mmol/L AO ADM SS CO2 [Moles/Vol] 28 mmol/L Invalid Interpretation Code 23 - 31 mmol/L AO ADM SS Creatinine [Mass/Vol] 0.86 mg/dL Invalid Interpretation Code 0.55 - 1.02 mg/dL AO ADM SS Electrolyte Balance 8.0 mEq/L Invalid Interpretation Code 4.0 - 15.0 mEq/L AO ADM SS Eosinophil, Absolute 0.2 103/mcL Invalid Interpretation Code 0.0 - 0.4 10^3/mcL AO Workflow SS Eosinophils/100 WBC (Bld) 2.2 % Invalid Interpretation Code 0.0 - 7.0 % AO Workflow SS Erythrocyte distribution width (RBC) [Ratio] 12.9 % Invalid Interpretation Code 11.5 - 14.5 % AO Workflow SS GFR/1.73 sq M.predicted among blacks MDRD (S/P/Bld) [Vol rate/Area] 81 ml/min/1.73sqm Invalid Interpretation Code AO Chemistry S Comment on above: Interpretive Data: GFR Population mean for , Non- Americans Ages 20-29 = 116 mL/min/1.73 sq.m. Ages 30-39 = 107 mL/min/1.73 sq.m. Ages 40-49 = 99 mL/min/1.73 sq.m. Ages 50-59 = 93 mL/min/1.73 sq.m. Ages 60-69 = 85 mL/min/1.73 sq.m. Ages 70+ = 75 mL/min/1.73 sq.m. Chronic Kidney Disease: Less than 60 mL/min/1.73 square meters End Stage Renal Disease: Less than 15 mL/min/1.73 square meters GFR/1.73 sq M.predicted among non-blacks MDRD (S/P/Bld) [Vol rate/Area] 67 ml/min/1.73sqm Invalid Interpretation Code AO Chemistry S Comment on above: Interpretive Data: GFR Population mean for , Non- Americans Ages 20-29 = 116 mL/min/1.73 sq.m. Ages 30-39 = 107 mL/min/1.73 sq.m. Ages 40-49 = 99 mL/min/1.73 sq.m. Ages 50-59 = 93 mL/min/1.73 sq.m. Ages 60-69 = 85 mL/min/1.73 sq.m. Ages 70+ = 75 mL/min/1.73 sq.m. Chronic Kidney Disease: Less than 60 mL/min/1.73 square meters End Stage Renal Disease: Less than 15 mL/min/1.73 square meters Globulin 3.0 G/dL Invalid Interpretation Code AO ADM SS Glucose [Mass/Vol] 102 mg/dL Invalid Interpretation Code 80 - 115 mg/dL AO ADM SS Hematocrit (Bld) [Volume fraction] 44.0 % Invalid Interpretation Code 37.0 - 47.0 % AO Workflow SS Hemoglobin (Bld) [Mass/Vol] 14.7 G/dL Invalid Interpretation Code 12.0 - 16.0 G/dL AO Workflow SS Lymphocyte, Absolute 2.4 103/mcL Invalid Interpretation Code 0.8 - 3.9 10^3/mcL AO Workflow SS Lymphocytes/100 WBC (Bld) 33.6 % Invalid Interpretation Code 10.0 - 50.0 % AO Workflow SS MCH (RBC) [Entitic mass] 29.9 pg Invalid Interpretation Code 27.0 - 31.2 pg AO Workflow SS MCHC 33.5 G/dL Invalid Interpretation Code 33.0 - 37.0 G/dL AO Workflow SS MCV (RBC) [Entitic vol] 89.4 fL Invalid Interpretation Code 80.0 - 94.0 fL AO Workflow SS Monocyte, Absolute 0.5 103/mcL Invalid Interpretation Code 0.2 - 1.0 10^3/mcL AO Workflow SS Monocytes/100 WBC (Bld) 7.1 % Invalid Interpretation Code 1.7 - 13.0 % AO Workflow SS Neutrophil, Absolute 4.1 103/mcL Invalid Interpretation Code 2.9 - 6.2 10^3/mcL AO Workflow SS Neutrophils/100 WBC (Bld) 56.6 % Invalid Interpretation Code 37.0 - 80.0 % AO Workflow SS Platelet mean volume (Bld) [Entitic vol] 9.3 fL Invalid Interpretation Code 7.4 - 10.4 fL AO Workflow SS Platelets (Bld) [#/Vol] 239 103/mcL Invalid Interpretation Code 130 - 400 10^3/mcL AO Workflow SS Potassium [Moles/Vol] 4.8 mmol/L Invalid Interpretation Code 3.5 - 5.1 mmol/L AO ADM SS Protein [Mass/Vol] 7.0 G/dL Invalid Interpretation Code 6.4 - 8.2 G/dL AO ADM SS RBC (Bld) [#/Vol] 4.93 106/mcL Invalid Interpretation Code 4.20 - 5.40 10^6/mcL AO Workflow SS Sodium [Moles/Vol] 143 mmol/L Invalid Interpretation Code 136 - 145 mmol/L AO ADM SS Urea nitrogen [Mass/Vol] 18 mg/dL Invalid Interpretation Code 7 - 18 mg/dL AO ADM SS Urea nitrogen/Creatinine [Mass ratio] 21 ratio Invalid Interpretation Code 7 - 27 ratio AO ADM SS WBC (Bld) [#/Vol] 7.2 103/mcL Invalid Interpretation Code 4.6 - 10.8 10^3/mcL AO Workflow SS LABORATORYOrdered By: Pamella Eisenberg on 03-07-2023 Cholesterol [Mass/Vol] 227 mg/dL Invalid Interpretation Code 0 - 200 mg/dL AO ADM SS Comment on above: Interpretive Data: C holesterol Reference Interval: Less than 200 Desirable 200-239 Borderline high risk 240 and above High risk Cholesterol in HDL [Mass/Vol] 53 mg/dL Invalid Interpretation Code 40 - 60 mg/dL AO ADM SS Cholesterol in LDL [Mass/Vol] 158 mg/dL Invalid Interpretation Code 0 - 130 mg/dL AO ADM SS Triglyceride [Mass/Vol] 79 mg/dL Invalid Interpretation Code 0 - 150 mg/dL AO ADM SS Comment on above: Interpretive Data: T riglyceride Reference Interval: Less than 150 Normal 150-199 Borderline high risk 200-499 High risk 500 or higher Very high risk LIPIDon 03-07-2023 Cholesterol [Mass/Vol] 227 mg/dL High 0-200 [facility] ([place]) Comment on above: Result Comment: Chol esterol Reference Interval: Less than 200 Desirable 200-239 Borderline high risk 240 and above High risk Performed By: #### C BC, VIDH, GFR, LIPID, ADIFF, CMP, ANEU ####[address] [place], [place] [address] Cholesterol in HDL [Mass/Vol] 53 mg/dL Normal 40-60 [facility] ([place]) Comment on above: Performed By: #### C BC, VIDH, GFR, LIPID, ADIFF, CMP, ANEU ####[address] [place], [place] [address] Cholesterol in LDL [Mass/Vol] 158 mg/dL High 0-130 [facility] ([place]) Comment on above: Performed By: #### C BC, VIDH, GFR, LIPID, ADIFF, CMP, ANEU ####[address] [place], [place] [address] Triglyceride [Mass/Vol] 79 mg/dL Normal 0-150 [facility] ([place]) Comment on above: Result Comment: Trig lyceride Reference Interval: Less than 150 Normal 150-199 Borderline high risk 200-499 High risk 500 or higher Very high risk Performed By: #### C BC, VIDH, GFR, LIPID, ADIFF, CMP, ANEU ####[address] [place], [place] [address] VIDHon 03-07-2023 Vit. D 25-Hydroxy 25.5 ng/mL Normal [facility] ([place]) Comment on above: Result Comment: Inte rpretive Values Based on Total 25(OH) Vitamin D: Deficient <20 ng/mL Insufficient 20 - <30 ng/mL Sufficient 30-100 ng/mL Performed By: #### C BC, VIDH, GFR, LIPID, ADIFF, CMP, ANEU #### [address] [place], [place] [address] [id number] 06-27-2022 SARS-CoV-2 (COVID-19) RNA DELORIS+probe Ql (Unsp spec) Negative Normal Negative [facility] ([place]) Comment on above: Performed By: #### C OVD19 #### [address] [address] SARS-CoV-2 (COVID-19) RNA DELORIS+probe Ql (Unsp spec) Normal [facility] ([place]) Comment on above: Result Comment: Nega tive results do not preclude SARS-CoV-2 infection and should not be used as the sole basis for patient management decisions. Negative results must be combined with clinical observations, patient history, and epidemiological information. There is a risk of false negative values resulting from improperly collected, transported, or handled specimens. There is a risk of false negative values due to the presence of sequence variants in the pathogen targets of the assay, procedural errors, amplification inhibitors in specimens, or inadequate numbers of organisms for amplification. [employer] SARS-CoV-2 Assay is a Real-Time reverse-transcriptase polymerase chain reaction (RT-PCR) based qualitative in vitro diagnostic test intended for the qualitative detection of nucleic acid from the SARS-CoV-2 in nasopharyngeal swab specimens collected from individuals suspected of COVID-19 by their healthcare provider. Testing is limited to laboratories certified under the Clinical Laboratory Improvement Amendments of 1988 (CLIA), 42 U.S.C. ?263a, to perform moderate and high complexity tests. COVID-19 Int Performed By: #### C OVD19 #### [address] [address] LABORATORYOrdered By: Holli Lopez on 06-27-2022 SARS-CoV-2 (COVID-19) RNA DELORIS+probe Ql (Resp) Negative results do not preclude SARS-CoV-2 infection and should not be used as the sole basis for patient management decisions. Negative results must be combined with clinical observations, patient history, and epidemiological information.There is a risk of false negative values resulting from improperly collected, transported, or handled specimens.There is a risk of false negative values due to the presence of sequence variants in the pathogen targets of the assay, procedural errors, amplification inhibitors in specimens, or inadequate numbers of organisms for amplification.BASHIR SARS-CoV-2 Assay is a Real-Time reverse-transcriptase polymerase chain reaction (RT-PCR) based qualitative in vitro diagnostic test intended for the qualitative detection of nucleic acid from the SARS-CoV-2 in nasopharyngeal swab specimens collected from individuals suspected of COVID-19 by their healthcare provider. Testing is limited to laboratories certified under the Clinical Laboratory Improvement Amendments of 1988 (CLIA), 42 U.S.C. 263a, to perform moderate and high complexity tests. Invalid Interpretation Code AO Auto Urine SS XR SHOULDER MINIMUM 2 VIEWS RIGHTon 05-18-2022 XR SHOULDER MINIMUM 2 VIEWS RIGHT ORIGINAL EXAMINATION: TWO XRAY VIEWS OF THE RIGHT SHOULDER 05/16/2022 9:41 am COMPARISON: None. HISTORY: ORDERING SYSTEM PROVIDED HISTORY: Reason for Exam: right shoulder pain, injury 3 weeks ago FINDINGS: The right glenohumeral alignment is normal. There is no fracture of right humeral head or neck. Calcifications adjacent to the humeral head are consistent with calcific tendinitis. The acromioclavicular alignment is normal. There is no fracture of the right clavicle or right scapula. The adjacent ribs are intact. IMPRESSION: No acute fracture or dislocation of the right shoulder. Calcific tendinitis. Interpreted by: Osmin Thao MD Preliminary Report By: Osmin Thao MD Electronically signed By Osmin Thao MD Dictated Date: 05/18/2022 4:58:07 AM Prelim Date: 05/18/2022 5:03:31 AM Sign Date: 05/18/2022 5:03:31 AM Ordering Provider: RUPA MIRANDA [facility] ([place]) LABORATORYOrdered By: Genaro Castorena on 11-08-2021 Fibrin D-dimer DDU (PPP) [Mass/Vol] 223 ng/mL D-DU Invalid Interpretation Code 0 - 230 ng/mL D-DU AO Coag SS Natriuretic peptide.B prohormone N-Terminal [Mass/Vol] 88 pg/mL Invalid Interpretation Code 0 - 125 pg/mL AO ADM SS LABORATORYOrdered By: Holli Lopez on 10-19-2021 Albumin BCP dye [Mass/Vol] 4.0 G/dL Invalid Interpretation Code 3.4 - 4.8 G/dL AO ADM SS Albumin/Globulin [Mass ratio] 1.4 {ratio} Invalid Interpretation Code 1.1 - 2.5 ratio AO ADM SS ALP [Catalytic activity/Vol] 72 U/L Invalid Interpretation Code 40 - 135 U/L AO ADM SS ALT With P-5'-P [Catalytic activity/Vol] 27 U/L Invalid Interpretation Code 14 - 59 U/L AO ADM SS AST With P-5'-P [Catalytic activity/Vol] 19 U/L Invalid Interpretation Code 10 - 40 U/L AO ADM SS Bilirubin [Mass/Vol] 0.4 mg/dL Invalid Interpretation Code 0.2 - 1.0 mg/dL AO ADM SS Calcium [Mass/Vol] 8.9 mg/dL Invalid Interpretation Code 8.4 - 10.2 mg/dL AO ADM SS Chloride [Moles/Vol] 105 mmol/L Invalid Interpretation Code 98 - 107 mmol/L AO ADM SS CO2 [Moles/Vol] 26 mmol/L Invalid Interpretation Code 23 - 31 mmol/L AO ADM SS Creatinine [Mass/Vol] 0.74 mg/dL Invalid Interpretation Code 0.55 - 1.02 mg/dL AO ADM SS Electrolyte Balance 12.0 mEq/L Invalid Interpretation Code 4.0 - 15.0 mEq/L AO ADM SS Globulin 2.8 G/dL Invalid Interpretation Code AO ADM SS Glucose [Mass/Vol] 90 mg/dL Invalid Interpretation Code 80 - 115 mg/dL AO ADM SS Potassium [Moles/Vol] 4.1 mmol/L Invalid Interpretation Code 3.5 - 5.1 mmol/L AO ADM SS Protein [Mass/Vol] 6.8 G/dL Invalid Interpretation Code 6.4 - 8.2 G/dL AO ADM SS Sodium [Moles/Vol] 143 mmol/L Invalid Interpretation Code 136 - 145 mmol/L AO ADM SS TSH Qn 2.93 m[IU]/L Invalid Interpretation Code 0.36 - 3.74 mcIU/mL AO ADM SS Urea nitrogen [Mass/Vol] 12 mg/dL Invalid Interpretation Code 7 - 18 mg/dL AO ADM SS Urea nitrogen/Creatinine [Mass ratio] 16 ratio Invalid Interpretation Code 7 - 27 ratio AO ADM SS LABORATORYOrdered By: Tarik Caballero on 10-19-2021 Basophil, Absolute 0.00 103/mcL Invalid Interpretation Code 0.00 - 0.19 10^3/mcL AO Auto Heme SS Basophils/100 WBC (Bld) 0.5 % Invalid Interpretation Code 0.0 - 2.5 % AO Auto Heme SS Eosinophil, Absolute 0.10 103/mcL Invalid Interpretation Code 0.00 - 0.40 10^3/mcL AO Auto Heme SS Eosinophils/100 WBC (Bld) 1.5 % Invalid Interpretation Code 0.0 - 7.0 % AO Auto Heme SS Erythrocyte distribution width (RBC) [Ratio] 12.8 % Invalid Interpretation Code 11.5 - 14.5 % AO Auto Heme SS Hematocrit (Bld) [Volume fraction] 42.3 % Invalid Interpretation Code 37.0 - 47.0 % AO Auto Heme SS Hemoglobin (Bld) [Mass/Vol] 14.1 G/dL Invalid Interpretation Code 12.0 - 16.0 G/dL AO Auto Heme SS Lymphocyte, Absolute 2.70 103/mcL Invalid Interpretation Code 0.77 - 3.85 10^3/mcL AO Auto Heme SS Lymphocytes/100 WBC (Bld) 37.9 % Invalid Interpretation Code 10.0 - 50.0 % AO Auto Heme SS MCH (RBC) [Entitic mass] 29.9 pg Invalid Interpretation Code 27.0 - 31.2 pg AO Auto Heme SS MCHC (RBC) [Mass/Vol] 33.2 G/dL Invalid Interpretation Code 33.0 - 37.0 G/dL AO Auto Heme SS MCV (RBC) [Entitic vol] 89.9 fL Invalid Interpretation Code 80.0 - 94.0 fL AO Auto Heme SS Monocyte, Absolute 0.60 103/mcL Invalid Interpretation Code 0.15 - 1.00 10^3/mcL AO Auto Heme SS Monocytes/100 WBC (Bld) 7.8 % Invalid Interpretation Code 1.7 - 13.0 % AO Auto Heme SS Neutrophil, Absolute 3.70 103/mcL Invalid Interpretation Code 2.85 - 6.16 10^3/mcL AO Auto Heme SS Neutrophils/100 WBC (Bld) 52.3 % Invalid Interpretation Code 37.0 - 80.0 % AO Auto Heme SS Platelet mean volume (Bld) [Entitic vol] 9.6 fL Invalid Interpretation Code 7.4 - 10.4 fL AO Auto Heme SS Platelets (Bld) [#/Vol] 277 103/mcL Invalid Interpretation Code 130 - 400 10^3/mcL AO Auto Heme SS RBC (Bld) [#/Vol] 4.70 106/mcL Invalid Interpretation Code 4.20 - 5.40 10^6/mcL AO Auto Heme SS WBC (Bld) [#/Vol] 7.10 103/mcL Invalid Interpretation Code 4.60 - 10.80 10^3/mcL AO Auto Heme SS LABORATORYOrdered By: SYSTEM SYSTEM on 10-19-2021 GFR 97 ml/min/1.73sqm Invalid Interpretation Code AO Chemistry S GFR Non- 80 ml/min/1.73sqm Invalid Interpretation Code AO Chemistry S LABORATORYOrdered By: Rosemarie Juarez on 05-31-2021 Free T4 [Mass/Vol] 0.82 ng/dL Invalid Interpretation Code 0.76 - 1.46 ng/dL AO ADM SS TSH Qn 2.96 m[IU]/L Invalid Interpretation Code 0.36 - 3.74 mcIU/mL AO ADM SS Vital Signs Date Time Vital Sign Value Performing Clinician Facility 05-29-2025 13:44-0400 Body height 157.[address] Ann Dennison MD Work Phone: [facility] 05-29-2025 13:44-0400 Body mass index (BMI) [Ratio] 46.6 kg/m2 Dr. Ann Dennison MD Work Phone: [facility] 05-29-2025 13:44-0400 Body weight 115.[address] Ann Dennison MD Work Phone: [facility] 05-29-2025 13:44-0400 Diastolic blood pressure 83 mm[Hg] Dr. Ann Dennison MD Work Phone: [facility] 05-29-2025 13:44-0400 Systolic blood pressure 150 mm[Hg] Dr. Ann Dennison MD Work Phone: [facility] 04-14-2025 13:00-0400 Body height 157.[address] Ann Dennison MD Work Phone: [facility] 04-14-2025 13:00-0400 Body mass index (BMI) [Ratio] 46.7 kg/m2 Dr. Ann Dennison MD Work Phone: [facility] 04-14-2025 13:00-0400 Body weight 115.[address] Ann Dennison MD Work Phone: [facility] 04-14-2025 13:00-0400 Diastolic blood pressure 82 mm[Hg] Dr. Ann Dennison MD Work Phone: [facility] 04-14-2025 13:00-0400 Systolic blood pressure 134 mm[Hg] Dr. Ann Dennison MD Work Phone: [facility] 02-25-2025 11:32-0400 Body height 157.[address] Ann Dennison MD Work Phone: [facility] 02-25-2025 11:32-0400 Body mass index (BMI) [Ratio] 45.2 kg/m2 Dr. Ann Dennison MD Work Phone: [facility] 02-25-2025 11:32-0400 Body weight 112.[address] Ann Dennison MD Work Phone: [facility] 02-25-2025 11:32-0400 Diastolic blood pressure 84 mm[Hg] Dr. Ann Dennison MD Work Phone: [facility] 02-25-2025 11:32-0400 Systolic blood pressure 126 mm[Hg] Dr. Ann Dennison MD Work Phone: [facility] 02-17-2025 13:03-0400 Body height 157.[address] Ann Dennison MD Work Phone: [facility] 02-17-2025 13:03-0400 Body mass index (BMI) [Ratio] 44.9 kg/m2 Dr. Ann Dennison MD Work Phone: [facility] 02-17-2025 13:03-0400 Body temperature 97.1 [degF] Dr. Ann Dennison MD Work Phone: [facility] 02-17-2025 13:03-0400 Body weight 111.[address] Ann Dennison MD Work Phone: [facility] 02-17-2025 13:03-0400 Diastolic blood pressure 82 mm[Hg] Dr. Ann Dennison MD Work Phone: [facility] 02-17-2025 13:03-0400 Heart rate 63 /min Dr. Ann Dennison MD Work Phone: [facility] 02-17-2025 13:03-0400 Respiratory rate 16 /min Dr. Ann Dennison MD Work Phone: [facility] 02-17-2025 13:03-0400 SaO2% (BldA) [Mass fraction] 96 % Dr. Ann Dennison MD Work Phone: [facility] 02-17-2025 13:03-0400 Systolic blood pressure 128 mm[Hg] Dr. Ann Dennison MD Work Phone: [facility] 02-04-2025 18:02-0400 Body temperature 100.4 [degF] Yudy Praisler-Wood TECHNICAL IMPLEMENTATION LEAD.CARE TEAM COORDINATOR SCHEDULER Work Phone: [facility] 02-04-2025 18:02-0400 Body weight 110.7 kg Yudy Praisler-Wood TECHNICAL IMPLEMENTATION LEAD.CARE TEAM COORDINATOR SCHEDULER Work Phone: [facility] 02-04-2025 18:02-0400 Diastolic blood pressure 100 mm[Hg] Yudy Praisler-Wood TECHNICAL IMPLEMENTATION LEAD.CARE TEAM COORDINATOR SCHEDULER Work Phone: [facility] 02-04-2025 18:02-0400 Heart rate 95 /min Yudy Praisler-Wood TECHNICAL IMPLEMENTATION LEAD.CARE TEAM COORDINATOR SCHEDULER Work Phone: [facility] 02-04-2025 18:02-0400 Respiratory rate 19 /min Yudy Praisler-Wood TECHNICAL IMPLEMENTATION LEAD.CARE TEAM COORDINATOR SCHEDULER Work Phone: [facility] 02-04-2025 18:02-0400 SaO2% (BldA) [Mass fraction] 95 % Yudy Praisler-Wood TECHNICAL IMPLEMENTATION LEAD.CARE TEAM COORDINATOR SCHEDULER Work Phone: [facility] 02-04-2025 18:02-0400 Systolic blood pressure 120 mm[Hg] Yudy Sarah SOLERCARE TEAM COORDINATOR SCHEDULER Work Phone: [facility] 12-10-2024 13:03-0400 Body mass index (BMI) [Ratio] 44.2 kg/m2 Dr. Ann Dennison MD Work Phone: [facility] 12-10-2024 13:03-0400 Body weight 109.[address] Ann Dennison MD Work Phone: [facility] 12-10-2024 13:03-0400 Diastolic blood pressure 82 mm[Hg] Dr. Ann Dennison MD Work Phone: [facility] 12-10-2024 13:03-0400 Systolic blood pressure 141 mm[Hg] Dr. Ann Dennison MD Work Phone: [facility] 11-03-2024 10:55-0400 Body temperature 96 [degF] Dr. Ann Dennison MD Work Phone: [facility] 11-03-2024 10:55-0400 Diastolic blood pressure 60 mm[Hg] Dr. Ann Dennison MD Work Phone: [facility] 11-03-2024 10:55-0400 Heart rate 66 /min Dr. Ann Dennison MD Work Phone: [facility] 11-03-2024 10:55-0400 Respiratory rate 16 /min Dr. Ann Dennison MD Work Phone: [facility] 11-03-2024 10:55-0400 SaO2% (BldA) [Mass fraction] 94 % Dr. Ann Dennison MD Work Phone: [facility] 11-03-2024 10:55-0400 Systolic blood pressure 106 mm[Hg] Dr. Ann Dennison MD Work Phone: [facility] 11-03-2024 08:44-0400 Body height 157.[address] Ann Dennison MD Work Phone: [facility] 11-03-2024 08:44-0400 Body mass index (BMI) [Ratio] 43.9 kg/m2 Dr. Ann Dnenison MD Work Phone: [facility] 11-03-2024 08:44-0400 Body weight 108.[address] Ann Dennison MD Work Phone: [facility] 10-08-2024 15:08-0500 Body mass index (BMI) [Ratio] 45.3 kg/m2 Dr. Ann Dennison MD Work Phone: [facility] 10-08-2024 15:08-0500 Body weight 112.[address] Ann Dennison MD Work Phone: [facility] 10-08-2024 15:08-0500 Diastolic blood pressure 83 mm[Hg] Dr. Ann Dennison MD Work Phone: [facility] 10-08-2024 15:08-0500 Heart rate 84 /min Dr. Ann Dennison MD Work Phone: [facility] 10-08-2024 15:08-0500 Respiratory rate 7 /min Dr. Ann Dennison MD Work Phone: [facility] 10-08-2024 15:08-0500 SaO2% (BldA) [Mass fraction] 98 % Dr. Ann Dennison MD Work Phone: [facility] 10-08-2024 15:08-0500 Systolic blood pressure 124 mm[Hg] Dr. Ann Dennison MD Work Phone: [facility] 09-22-2024 14:06-0500 Body mass index (BMI) [Ratio] 44.8 kg/m2 Dr. Ann Dennison MD Work Phone: [facility] 09-22-2024 14:06-0500 Body temperature 98.8 [degF] Dr. Ann Dennison MD Work Phone: [facility] 09-22-2024 14:06-0500 Body weight 111.[address] Ann Dennison MD Work Phone: [facility] 09-22-2024 14:06-0500 Diastolic blood pressure 80 mm[Hg] Dr. Ann Dennison MD Work Phone: [facility] 09-22-2024 14:06-0500 Heart rate 77 /min Dr. Ann Dennison MD Work Phone: [facility] 09-22-2024 14:06-0500 Respiratory rate 16 /min Dr. Ann Dennison MD Work Phone: [facility] 09-22-2024 14:06-0500 SaO2% (BldA) [Mass fraction] 95 % Dr. Ann Dennison MD Work Phone: [facility] 09-22-2024 14:06-0500 Systolic blood pressure 132 mm[Hg] Dr. Ann Dennison MD Work Phone: [facility] 09-02-2024 14:29-0500 Body mass index (BMI) [Ratio] 45.1 kg/m2 Dr. Ann Dennison MD Work Phone: [facility] 09-02-2024 14:29-0500 Body temperature 97.6 [degF] Dr. Ann Dennison MD Work Phone: [facility] 09-02-2024 14:29-0500 Body weight 112.[address] Ann Dennison MD Work Phone: [facility] 09-02-2024 14:29-0500 Diastolic blood pressure 60 mm[Hg] Dr. Ann Dennison MD Work Phone: [facility] 09-02-2024 14:29-0500 Heart rate 75 /min Dr. Ann Dennison MD Work Phone: [facility] 09-02-2024 14:29-0500 Respiratory rate 18 /min Dr. Ann Dennison MD Work Phone: [facility] 09-02-2024 14:29-0500 SaO2% (BldA) [Mass fraction] 99 % Dr. Ann Dennison MD Work Phone: [facility] 09-02-2024 14:29-0500 Systolic blood pressure 118 mm[Hg] Dr. Ann Dennison MD Work Phone: [facility] 11-30-2023 14:24-0400 Body height 157.[address] Ann Dennison Work Phone: [facility] 11-30-2023 14:20-0400 Body mass index (BMI) [Ratio] 46.7 kg/m2 Dr. Ann Dennison Work Phone: [facility] 11-30-2023 14:20-0400 Body weight 115.[address] Ann Dennison Work Phone: [facility] 11-30-2023 14:20-0400 Diastolic blood pressure 84 mm[Hg] Dr. Ann Dennison Work Phone: [facility] 11-30-2023 14:20-0400 Systolic blood pressure 132 mm[Hg] Dr. Ann Dennison Work Phone: [facility] 07-23-2023 17:31-0500 Diastolic blood pressure 66 mm[Hg] ANTENNA ENGINEER-C Rupa Miranda ANTENNA ENGINEER Work Phone: [facility] 07-23-2023 17:31-0500 Heart rate 72 /min ANTENNA ENGINEER-C Rupa Miranda ANTENNA ENGINEER Work Phone: [facility] 07-23-2023 17:31-0500 Respiratory rate 18 /min ANTENNA ENGINEER-[place] Miranda ANTENNA ENGINEER Work Phone: [facility] 07-23-2023 17:31-0500 SaO2% (BldA) [Mass fraction] 93 % ANTENNA ENGINEER-C Rupa Miranda ANTENNA ENGINEER Work Phone: [facility] 07-23-2023 17:31-0500 Systolic blood pressure 128 mm[Hg] ANTENNA ENGINEER-C Rupa Ruth ANTENNA ENGINEER Work Phone: [facility] 07-23-2023 16:36-0500 Body temperature 98.1 [degF] ANTENNA ENGINEER-C Rupa Ruth ANTENNA ENGINEER Work Phone: [facility] 07-23-2023 12:51-0500 Body height 157.48 cm ANTENNA ENGINEER-C Rupa Miranda ANTENNA ENGINEER Work Phone: [facility] 07-23-2023 12:51-0500 Body mass index (BMI) [Ratio] 44.7 kg/m2 ANTENNA ENGINEER-C Rupa Miranda ANTENNA ENGINEER Work Phone: [facility] 07-23-2023 12:51-0500 Body weight 111 kg ANTENNA ENGINEER-C Rupanathan Miranda ANTENNA ENGINEER Work Phone: [facility] 07-16-2023 08:51-0500 Body mass index (BMI) [Ratio] 46 kg/m2 ANTENNA ENGINEER-C Rupa Ruth ANTENNA ENGINEER Work Phone: [facility] 07-16-2023 08:51-0500 Body temperature 97.3 [degF] ANTENNA ENGINEER-C Rupa Miranda ANTENNA ENGINEER Work Phone: [facility] 07-16-2023 08:51-0500 Body weight 114.3 kg ANTENNA ENGINEER-C Rupa Miranda ANTENNA ENGINEER Work Phone: [facility] 07-16-2023 08:51-0500 Diastolic blood pressure 89 mm[Hg] ANTENNA ENGINEER-C Rupa Miranda ANTENNA ENGINEER Work Phone: [facility] 07-16-2023 08:51-0500 Heart rate 85 /min ANTENNA ENGINEER-C Rupa Miranda ANTENNA ENGINEER Work Phone: [facility] 07-16-2023 08:51-0500 Respiratory rate 17 /min ANTENNA ENGINEER-C Rupa Grimesmer ANTENNA ENGINEER Work Phone: [facility] 07-16-2023 08:51-0500 SaO2% (BldA) [Mass fraction] 97 % ANTENNA ENGINEER-C Rupa Grimesmer ANTENNA ENGINEER Work Phone: [facility] 07-16-2023 08:51-0500 Systolic blood pressure 136 mm[Hg] ANTENNA ENGINEER-C Rupa Ruth ANTENNA ENGINEER Work Phone: [facility] 06-14-2023 07:33-0400 Body mass index (BMI) [Ratio] 44.6 kg/m2 ANTENNA ENGINEER-C Rupa [employer] ANTENNA ENGINEER Work Phone: [facility] 06-14-2023 07:33-0400 Body temperature 98.6 [degF] ANTENNA ENGINEER-C Rupa Ruth ANTENNA ENGINEER Work Phone: [facility] 06-14-2023 07:33-0400 Body weight 110.67 kg ANTENNA ENGINEER-C Rupa Ruth ANTENNA ENGINEER Work Phone: [facility] 06-14-2023 07:33-0400 Diastolic blood pressure 80 mm[Hg] ANTENNA ENGINEER-C Rupa [employer] ANTENNA ENGINEER Work Phone: [facility] 06-14-2023 07:33-0400 Heart rate 73 /min ANTENNA ENGINEER-C Rupa Ruth ANTENNA ENGINEER Work Phone: [facility] 06-14-2023 07:33-0400 Respiratory rate 14 /min ANTENNA ENGINEER-C Rupa Ruth ANTENNA ENGINEER Work Phone: [facility] 06-14-2023 07:33-0400 SaO2% (BldA) [Mass fraction] 98 % ANTENNA ENGINEER-C Rupa Ruth ANTENNA ENGINEER Work Phone: [facility] 06-14-2023 07:33-0400 Systolic blood pressure 128 mm[Hg] ANTENNA ENGINEER-C Rupa Ruth ANTENNA ENGINEER Work Phone: [facility] 05-19-2023 02:30-0400 Diastolic blood pressure 73 mm[Hg] [facility] 05-19-2023 02:30-0400 Heart rate 61 /min [facility] 05-19-2023 02:30-0400 Respiratory rate 16 /min [facility] 05-19-2023 02:30-0400 SaO2% (BldA) [Mass fraction] 98 % [facility] 05-19-2023 02:30-0400 Systolic blood pressure 118 mm[Hg] [facility] 05-18-2023 22:18-0400 Body height 157.48 cm [facility] 05-18-2023 22:18-0400 Body mass index (BMI) [Ratio] 46 kg/m2 [facility] 05-18-2023 22:18-0400 Body temperature 97.5 [degF] [facility] 05-18-2023 22:18-0400 Body weight 114.3 kg [facility] Encounters Encounter Date Encounter Type Care Provider Facility Start: 06-29-2025 End: 06-29-2025 ambulatory Ann Dennison Facility:[facility] Start: 05-29-2025 End: 05-29-[address] Jannette Garcia DO -[facility] Work Phone: Start: 05-29-2025 End: 05-29-[address] Ann Dennison MD Work Phone: [facility] Start: 04-14-2025 End: 04-14-2025 Patient encounter procedure Raquel ARREOLA -[facility] Work Phone: Start: 04-14-2025 End: 04-14-[address] Ann Dennison MD Work Phone: [facility] Start: 03-10-2025 End: 03-10-[address] Ann Dennison MD Work Phone: -Ultrasound [facility] Start: 03-10-2025 End: 03-10-2025 Patient encounter procedure Raquel ARREOLA -Ultrasound [facility] Work Phone: Start: 03-10-2025 End: 03-10-2025 ambulatory Ann Dennison Facility:[facility] Start: 02-25-2025 End: 02-25-[address] Ann Dennison MD Work Phone: -Laboratory Specimen Start: 02-25-2025 End: 02-25-2025 Patient encounter procedure Raquel Theron ANTENNA ENGINEER-C -Laboratory Specimen Work Phone: Start: 02-25-2025 End: 02-25-2025 Patient encounter procedure Raquel Theron ANTENNA ENGINEER-C -[facility] Work Phone: Start: 02-25-2025 End: 02-25-[address] Ann Dennison MD Work Phone: -[facility] Start: 02-25-2025 End: 02-25-2025 ambulatory Ann Dennison Facility:[facility] Start: 02-17-2025 End: 02-17-[address] Ann Dennison MD -[facility] Work Phone: Start: 02-17-2025 End: 02-17-[address] Ann Dennison MD Work Phone: -[facility] Start: 02-05-2025 End: 02-05-2025 Telephone encounter Yudy Smith APRN.CNP Work Phone: [facility] Comment on above: Medication Request Start: 02-04-2025 End: 02-04-2025 Patient encounter procedure Yudy Smith APRN.CARE TEAM COORDINATOR SCHEDULER Work Phone: [facility] Comment on above: Other acute nonsuppu rative otitis media of right ear, recurrence not specified (Primary Dx); Acute pharyngitis, unspecified etiology Start: 02-04-2025 End: 02-04-2025 ambulatory RUPA MIRANDA Facility:[facility] Start: 12-10-2024 Encounter for gynecological examination (general) (routine) without abnormal findings Birgit Barkman [facility] Start: 12-10-2024 End: 12-10-2024 Patient encounter procedure Birgit Juarez ANTENNA ENGINEER-C -[facility] Work Phone: Start: 12-10-2024 End: 12-10-2024 Patient encounter status Birgit Juarez ANTENNA ENGINEER-C [facility] Start: 12-10-2024 End: 12-10-2024 ambulatory Ann Dennison Facility:[facility] Start: 11-03-2024 ambulatory Alcira Payne y:[facility] Start: 11-03-2024 Non-patient / Non-visit Dr. Efren Vizcarra MD -[facility] Start: 11-03-2024 End: 11-03-2024 Admission to same day surgery center Dr. Alcira Vizcarra MD -Endoscopy Work Phone: Start: 11-03-2024 End: 11-03-[address] Ann Dennison MD Work Phone: [facility] Work Phone: Start: 10-13-2024 End: 10-13-[address] Ann Dennison MD -[facility], [facility] Work Phone: Start: 10-13-2024 End: 10-13-2024 ambulatory Ann Dennison Facility:[facility] Start: 10-08-2024 End: 10-08-[address] Alcira Vizcarra MD -[facility] Work Phone: Start: 10-08-2024 End: 10-08-2024 ambulatory Ann Dennison Facility:[facility] Start: 09-25-2024 End: 09-25-[address] Ann Dennison MD -Laboratory, [place] Start: 09-25-2024 End: 09-25-2024 ambulatory Ann Dennison Facility:[facility] Start: 09-22-2024 End: 09-22-[address] Ann Dennison MD -[facility] Work Phone: Start: 09-22-2024 End: 09-22-2024 ambulatory Ann Dennison Facility:[facility] Start: 09-02-2024 End: 09-02-[address] Ann Dennison MD -Laboratory, [facility] Start: 09-02-2024 End: 09-02-[address] Ann Dennison MD -[facility] Work Phone: Start: 09-02-2024 End: 09-02-2024 ambulatory Ann Dennison Facility:[facility] Start: 09-02-2024 End: 09-02-2024 ambulatory Ann Dennison Facility:[facility] Start: 07-03-2024 End: 07-03-2024 ambulatory Ann Dennison Facility:[facility] Start: 11-30-2023 End: 11-30-[address] Ann Dennison Work Phone: [facility] Work Phone: Start: 11-30-2023 End: 11-30-[address] Ann Dennison Work Phone: [facility]-Laboratory, Specimen Work Phone: Start: 11-30-2023 End: 11-30-[address] Ann Dennison Work Phone: [facility] Work Phone: Start: 08-08-2023 End: 08-08-[address] Ann Dennison Work Phone: [facility] Work Phone: Start: 07-23-2023 Non-patient / Non-visit ANTENNA ENGINEER-[place] Miranda ANTENNA ENGINEER Work Phone: [facility] Start: 07-23-2023 End: 07-23-2023 Admission to same day surgery center ANTENNA ENGINEER-[place] Miranda ANTENNA ENGINEER Work Phone: [facility] Start: 07-23-2023 End: 07-23-2023 ambulatory ANTENNA ENGINEER-C Rupa Miranda ANTENNA ENGINEER Work Phone: [facility] Work Phone: Start: 07-16-2023 End: 07-16-2023 Patient encounter procedure ANTENNA ENGINEER-C Rupa Miranda ANTENNA ENGINEER Work Phone: [facility] Work Phone: Start: 07-02-2023 End: 07-02-2023 ambulatory ANTENNA ENGINEER-C Rupa Miranda ANTENNA ENGINEER Work Phone: [facility] Work Phone: Start: 07-02-2023 End: 07-02-2023 Patient encounter procedure ANTENNA ENGINEER-C Rupa Ruth ANTENNA ENGINEER Work Phone: [facility] Work Phone: Start: 06-14-2023 End: 06-14-2023 Patient encounter procedure ANTENNA ENGINEER-C Rupa Miranda ANTENNA ENGINEER Work Phone: [facility] Work Phone: Start: 05-18-2023 End: 05-19-2023 Emergency department patient visit [facility] Work Phone: Start: 04-13-2023 End: 04-13-[address] RIGOBERTO SUN MD Facility:[facility] Start: 04-09-2023 End: 04-10-[address] RIGOBERTO SUN MD Facility:[facility] Start: 04-09-2023 End: 04-09-[address] RIGOBERTO SUN MD [facility] Start: 03-07-2023 End: 03-08-2023 ambulatory RUPA MIRANDA TECHNICAL IMPLEMENTATION LEAD-CARE TEAM COORDINATOR SCHEDULER Facility:[facility] Start: 03-07-2023 End: 03-07-2023 Patient encounter procedure RUPA MIRANDA TECHNICAL IMPLEMENTATION LEAD-CARE TEAM COORDINATOR SCHEDULER [facility] Start: 06-27-2022 End: 07-02-2022 ambulatory LÓPEZ HERNANDEZ TECHNICAL IMPLEMENTATION LEAD-CARE TEAM COORDINATOR SCHEDULER Facility:[facility] Start: 06-27-2022 End: 07-01-2022 Outreach Lab LÓPEZ HERNANDEZ TECHNICAL IMPLEMENTATION LEAD-CARE TEAM COORDINATOR SCHEDULER [facility] Start: 05-22-2022 End: 06-27-2022 ambulatory RUPA MIRANDA TECHNICAL IMPLEMENTATION LEAD-CARE TEAM COORDINATOR SCHEDULER Facility:[facility] Start: 05-22-2022 End: 06-27-2022 Physical therapy management RUPA MIRANDA TECHNICAL IMPLEMENTATION LEAD-CARE TEAM COORDINATOR SCHEDULER [facility] Start: 05-16-2022 End: 05-17-2022 ambulatory RUPA MIRANDA TECHNICAL IMPLEMENTATION LEAD-CARE TEAM COORDINATOR SCHEDULER Facility:[facility] Start: 05-16-2022 End: 05-16-2022 Patient encounter procedure RUPA MIRANDA TECHNICAL IMPLEMENTATION LEAD-CARE TEAM COORDINATOR SCHEDULER [facility] Start: 11-08-2021 End: 11-08-2021 Patient encounter procedure RUPA MIRANDA TECHNICAL IMPLEMENTATION LEAD-CARE TEAM COORDINATOR SCHEDULER [facility] Start: 10-19-2021 End: 10-19-2021 Patient encounter procedure RUPA MIRANDA TECHNICAL IMPLEMENTATION LEAD-CARE TEAM COORDINATOR SCHEDULER [facility] Start: 05-31-2021 End: 05-31-2021 Patient encounter procedure RUPA MIRANDA TECHNICAL IMPLEMENTATION LEAD-CARE TEAM COORDINATOR SCHEDULER [facility] Procedures Date Procedure Procedure Detail Performing Clinician Start: 03-10-[address] Ann Dennison MD Work Phone: Start: 02-25-[address] Ann Dennison MD Work Phone: Start: 02-04-2025 [place] streptococcus group a amplified probe tq [facility] Provider Start: 11-03-[address] Ann Dennison MD Work Phone: Start: 10-13-2024 Computed tomography of abdomen and pelvis with contrast Dr. Ann Dennison MD Work Phone: Start: 07-23-2023 Cholangiogram ANTENNA ENGINEER-C Rupa Miranda ANTENNA ENGINEER Work Phone: Start: 07-23-2023 Fluoroscopic guidance ANTENNA ENGINEER-C Rupa Miranda ANTENNA ENGINEER Work Phone: Start: 07-23-2023 Total cholecystectomy and exploration of common bile duct ANTENNA ENGINEER-C Rupa Miranda ANTENNA ENGINEER Work Phone: Start: 07-02-2023 Screening mammography ANTENNA ENGINEER-C Rupa Grimesmer ANTENNA ENGINEER Work Phone: Start: 07-02-2023 Ultrasonography of abdomen ANTENNA ENGINEER-C Rupa Miranda ANTENNA ENGINEER Work Phone: Start: 05-18-2023 Plain chest X-ray Start: 04-24-2006 Fallopian tube excision RUPAMILLICENT MIRANDA TECHNICAL IMPLEMENTATION LEAD-CARE TEAM COORDINATOR SCHEDULER Start: 08-20-1998 Ganglion cyst of left wrist (disorder) RUPA RUTH TECHNICAL IMPLEMENTATION LEAD-CARE TEAM COORDINATOR SCHEDULER Start: 08-20-1966 Tonsillectomy RUPA MIRANDA TECHNICAL IMPLEMENTATION LEAD-CARE TEAM COORDINATOR SCHEDULER H/O: surgery History of remov al of cyst ANTENNA ENGINEER-C Rupa Miranda ANTENNA ENGINEER Work Phone: Comment on above: GANGLION WRIST History of cholecystectomy S/P l aparoscopic cholecystectomy Dr. Ann Dennison Work Phone: Plan of Treatment Date Care Activity Detail Author Start: 12-03-2034 Urine microalbumin profile DTaP,Tdap,Td Vaccine (2 - Td or Tdap) [facility] Start: 2025 ambulatory Ambulatory Facility:[facility] Start: 11-03-2024 Egd transoral biopsy single/multiple EGD BIOPSY SINGLE/MULTIPLE [facility] Start: 11-03-2024 Patient discharge [facility] Start: 09-22-2024 Patient referral [facility] Work Phone: Start: 07-23-2023 Patient discharge [facility] Start: 06-14-2023 Patient referral [facility] Work Phone: Start: 05-18-2023 [facility] Start: 08-28-2021 Shingrix Vaccine (2 of 2) Shingrix Vaccine (2 of 2) [facility] Start: 2011 Pneumococcal Vaccine: 50+ (1 of 1 - PCV) Pneumococcal Vaccine: 50+ (1 of 1 - PCV) [facility] Start: 2006 Diabetes Screening Diabetes Screening [facility] Start: 2006 Lipid panel Lipid Screening [facility] Start: 2006 Screening for malignant neoplasm of colon [facility] Start: 2001 Screening for malignant neoplasm of breast Mammogram Screening [facility] Start: 1982 Screening for malignant neoplasm of cervix Cervical Cancer Screening [facility] Start: 1979 Anxiety Screening Anxiety Screening [facility] Start: 1979 Depression Screening Depression Screening [facility] Start: 1979 Hepatitis C screening Hepatitis C Screening [facility] Start: 1979 HIV screening HIV Screening [facility] Lipid 1996 panel - S filiberto or Plasma [facility] MG Breast - bilatera l Screening [facility] MG Breast - bilatera l Screening [facility] Patient Education ED Chest Pain, Uncertain Cause [facility] Work Phone: Patient referral [facility] Work Phone: [facility] Immunizations Immunization Date Immunization Notes Care Provider Fa cility 05-02-2025 Covid (Moderna) Dr. Ann rand MD Work Phone: [facility] 05-02-2025 Seasonal trivalent influenza vaccine, adjuvanted, preservative free Dr. Ann Dennison MD Work Phone: [facility] 05-02-[address] Ann Dennison MD Work Phone: [facility] 12-03-2024 tetanus toxoid, redu maribel diphtheria toxoid, and acellular pertussis vaccine, adsorbed Dr. Ann Dennison MD Work Phone: [facility] 04-24-2024 Influenza, injectabl e, Madin Garrison Canine Kidney, preservative free, quadrivalent Dr. Ann Dennison MD Work Phone: [facility] 04-24-2024 Pfizer Covid-19 (Comirnaty) Dr. Ann Dennison MD Work Phone: [facility] 05-11-2023 Covid (Spikevax) ANTENNA ENGINEER-C Moshe Miranda ANTENNA ENGINEER Work Phone: [facility] 05-07-2023 influenza, injectabl e, quadrivalent, preservative free ANTENNA ENGINEER-C Rupa Miranda ANTENNA ENGINEER Work Phone: [facility] 05-07-2023 RSV Adult Recombinan t (Arexvy) ANTENNA ENGINEER-C Rupa Miranda ANTENNA ENGINEER Work Phone: [facility] 05-12-2022 Covid Pfizer Bivalen t Booster ANTENNA ENGINEER-C Rupa Miranda ANTENNA ENGINEER Work Phone: [facility] 05-12-2022 influenza virus vaccine, unspecified formulation RUPA MIRANDA TECHNICAL IMPLEMENTATION LEAD-CARE TEAM COORDINATOR SCHEDULER [facility] 05-12-2022 SARS-CoV-2 mRNA (tozinameran) vaccine RUPA MIRANDA TECHNICAL IMPLEMENTATION LEAD-CARE TEAM COORDINATOR SCHEDULER [facility] Comment on above: Result Comment: Prashant Regan Huslia 05-12-2022 Seasonal, quadrivale nt, recombinant, injectable influenza vaccine, preservative free ANTENNA ENGINEER-C Rupa Miranda ANTENNA ENGINEER Work Phone: [facility] 12-15-2021 SARS-CoV-2 (COVID-19 ) mRNA-1273 vaccine RUPA MIRANDA TECHNICAL IMPLEMENTATION LEAD-CARE TEAM COORDINATOR SCHEDULER [facility] 07-28-2021 SARS-CoV-2 (COVID-19 ) mRNA-1273 vaccine RUPA MIRANDA TECHNICAL IMPLEMENTATION LEAD-CARE TEAM COORDINATOR SCHEDULER [facility] 07-03-2021 zoster vaccine recombinant RUPA RUTH TECHNICAL IMPLEMENTATION LEAD-CARE TEAM COORDINATOR SCHEDULER [facility] 04-27-2021 influenza virus vaccine, unspecified formulation RUPA GRIMESMER TECHNICAL IMPLEMENTATION LEAD-CARE TEAM COORDINATOR SCHEDULER [facility] 04-27-2021 influenza, injectabl e, quadrivalent, preservative free ANTENNA ENGINEER-C Rupa Ruth ANTENNA ENGINEER Work Phone: [facility] 11-27-2020 SARS-CoV-2 (COVID-19 ) mRNA-1273 vaccine RUPA MIRANDA TECHNICAL IMPLEMENTATION LEAD-CARE TEAM COORDINATOR SCHEDULER [facility] Comment on above: Result Comment: 2020: [id number] 10-30-2020 SARS-CoV-2 (COVID-19 ) mRNA-1273 vaccine RUPA MIRANDA TECHNICAL IMPLEMENTATION LEAD-CARE TEAM COORDINATOR SCHEDULER [facility] Comment on above: Result Comment: 2020: [id number] 04-28-2020 influenza, injectabl e, quadrivalent, preservative free ANTENNA ENGINEER-C Rupa Ruth ANTENNA ENGINEER Work Phone: [facility] 05-14-2019 influenza, injectabl e, quadrivalent, preservative free ANTENNA ENGINEER-C Rupa [employer] ANTENNA ENGINEER Work Phone: [facility] 05-22-2018 influenza, injectabl e, quadrivalent, preservative free ANTENNA ENGINEER-C Rupa Ruth ANTENNA ENGINEER Work Phone: [facility] 08-06-2014 influenza, injectabl e, quadrivalent, preservative free ANTENNA ENGINEER-C Rupa Miranda ANTENNA ENGINEER Work Phone: [facility] 12-22-2013 TD(adult) unspecifie d formulation ANTENNA ENGINEER-C Rupa Miranda ANTENNA ENGINEER Work Phone: [facility] 09-15-2009 novel [id number], preservative-free, injectable ANTENNA ENGINEER-C Rupa Miranda ANTENNA ENGINEER Work Phone: [facility] Payers Date Payer Category Payer Unknown [id number] 2024 Private Health Insurance O [facility] [id number] 2023 Self-pay 2023 Unknown [id number] 2022 Unknown [id number] 1960 Unknown [id number] 2..840.1.023004.3.579.2. 627 1960 Unknown [id number] 2.16.840.1.855626.3.579.2. 627 1960 Unknown [id number] 2.16.840.1.291517.3.579.2. 627 1960 Unknown [id number] 2.16.840.1.071122.3.579.2. 627 1960 Unknown [id number] 2.16.840.1.946091.3.579.2. 627 1960 Unknown [id number] 2.16.840.1.701671.3.579.2. 627 Unknown [id number] Unknown [id number] Unknown [id number] 2.16.840.1.655040.3.579.2. 462 Unknown [id number] 2.16.840.1.987494.3.579.2. 462 Unknown [id number] 2.16.840.1.403892.3.579.2. 462 Unknown [id number] 2.16.840.1.485706.3.579.2. 462 Unknown [id number] 2..840.1.520975.3.579.2. 462 Unknown [id number] 2..840.1.226507.3.579.2. 462 Unknown [id number] 2.16.840.1.789615.3.579.2. 462 Unknown [id number] 2.16.840.1.514649.3.579.2. 462 Unknown [id number] 2.16.840.1.331691.3.579.2. 462 Unknown [id number] 2..840.1.337826.3.579.2. 462 Unknown [id number] 2.16.840.1.169195.3.579.2. 462 Unknown [id number] 2.16.840.1.444704.3.579.2. 462 Unknown [id number] 2.16.840.1.843871.3.579.2. 462 Unknown [id number] 2.16.840.1.748266.3.579.2. 462 Unknown [id number] 2.16.840.1.767467.3.579.2. 462 Unknown [id number] 2.16.840.1.083370.3.579.2. 462 Unknown [id number] 2.16.840.1.082931.3.579.2. 462 Unknown [id number] 2.16.840.1.326568.3.579.2. 462 Social History Date Type Detail Facility Start: 10-08-2019 Never smoked t obacco (finding) [facility] Start: 1960 Sex Assigned At Female [facility] Start: 05-18-2023 End: 11-30-2023 Tobacco smoking status NDIS Unknown if ever smoked [facility] Start: 12-22-2018 End: 10-30-2024 Tobacco smoking status NHIS Ex-smoker (finding) [facility] Start: 11-03-2024 Sex Female (finding) [facility] History of tobacco use Current smoker [facility] Start: 12-22-2018 Tobacco use and exposure Smokeless tobacco non-user [facility] Start: 07-25-2020 End: 04-05-2021 History of Social function [facility] Start: 07-25-2020 End: 04-05-2021 Tobacco use panel [facility] National Score (1-100), lower number is lower risk Not on file [facility] Start: 1960 Sex assigned at Not on file [facility] NEGATED: Highlighted row [facility] NEGATED: Highlighted row Not [facility] Medical Equipment Procedure Code Equipment Code Equipment Original Text Equipment Identifier Dates Total cholecystectomy with exploration of common bile duct CLIP,ANGELITO PURDY FDA Start: 07-23-2023 Total cholecystectomy with exploration of common bile duct CLIP,ANGELITO PURDY FDA Start: 07-23-2023 Total cholecystectomy with exploration of common bile duct CLIP,ANGELITO PURDY FDA Start: 07-23-2023 Total cholecystectomy with exploration of common bile duct CLIP,ANGELITO PURDY FDA Start: 07-23-2023 Total cholecystectomy with exploration of common bile duct CLIP,ANGELITO PURDY FDA Start: 12-04-2023 Total cholecystectomy with exploration of common bile duct CLIP,ANGELITO PURDY FDA Start: 07-23-2023 Total cholecystectomy with exploration of common bile duct CLIP,ANGELITO OTOOLE WECK FDA Start: 07-23-2023 Total cholecystectomy with exploration of common bile duct CLIP,HEMMONA OTOOLE WECK FDA Start: 07-23-2023 Total cholecystectomy with exploration of common bile duct CLIP,ANGELITO OTOOLE WECK FDA Start: 07-23-2023 Total cholecystectomy with exploration of common bile duct CLIP,ANGELITO SMITHCK FDA Start: 07-23-2023 Total cholecystectomy with exploration of common bile duct CLIP,ANGELITO OTOOLE WECK FDA Start: 07-23-2023 Total cholecystectomy with exploration of common bile duct CLIP,HEMMONA OTOOLE WECK FDA Start: 07-23-2023 Total cholecystectomy with exploration of common bile duct CLIP,HEMMONA OTOOLE WECK FDA Start: 07-23-2023 Total cholecystectomy with exploration of common bile duct CLIP,ANGELITO PURDY FDA Start: 07-23-2023 Total cholecystectomy with exploration of common bile duct CLIP,ANGELITO PURDY FDA Start: 07-23-2023 Total cholecystectomy with exploration of common bile duct CLIP,ANGELITO PURDY FDA Start: 07-23-2023 Goals Date Patient Goal Desired Activity /State Functional Status Date Assessment Result Facility 08-14-2014 Are you deaf, or do you have serious difficulty hearing No 08/14/2014 2:15 PM Litzy Mendoza LPN No [facility] 08-14-2014 Are you blind, or do you have serious difficulty seeing, even when wearing glasses No 08/14/2014 2:15 PM Litzy Mendoza LPN No [facility] 08-14-2014 Do you have serious difficulty walking or climbing stairs No 08/14/2014 2:15 PM Litzy Mendoza LPN No [facility] 08-14-2014 Do you have difficul ty dressing or bathing No 08/14/2014 2:15 PM Litzy Mendoza LPN No [facility] 08-14-2014 Because of a physica l, mental, or emotional condition, do you have difficulty doing errands alone such as visiting a physician's office or shopping No 08/14/2014 2:15 PM Litzy Mendoza LPN No [facility] Mental Status Date Assessment Result Facility 11-03-2024 Cognitive function Voice/Name [facility] Work Phone: 07-23-2023 Cognitive function Voice/Name [facility] Work Phone: 05-19-2023 Cognitive function Level Of Cons ciousness Awake;Alert;Appropriate;Fol lows Commands [facility] Work Phone: 08-14-2014 Because of a physica l, mental, or emotional condition, do you have serious difficulty concentrating, remembering, or making decisions No 08/14/2014 2:15 PM EST Litzy Rodriguez LPN No [facility] Clinical Notes 11-08-2021 to 05-29-2025 Note Date & Type Note Facility 05-29-2025 Progress note [facility] 05-29-2025 Progress note Note Date/Time May 29, 2025 2:45pm [facility] [address], [address] [place] [address] OFFICE VISIT Date of Service: 05/29/25 MR#: [id number] Acct: [id number] Name: EDWARD PARADA DIAMANTE Rep #: [id number] : 1960 Provider: Dr. 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 Is patient in pain?: No Allergies No Known Allergies Allergy (Verified 05/29/25 13:44) Medications ?Medication ?Instructions ?Recorded ?Confirmed ?Type cholecalciferol (vitamin D3) 10 10 mcg PO DAILY 05/29/25 History mcg (400 unit) capsule magnesium 200 mg tablet 200 mg PO DAILY 06/14/2306/13 History fluticasone propionate 50 1 spray intranasal DAILY PRN 03/20/24 05/29/25 History mcg/actuation nasal allergy symptoms spray,suspension (Flonase Allergy Relief) multivitamin with minerals 1 cap PO DAILY 03/20/2406/13 History melatonin 10 mg capsule 10 mg PO HS PRN sleep 05/29/25 History lactobacillus combination no.4 3 3,000 mmu cells PO QD AY 10/08/24 05/29/25 History billion cell capsule (Probiotic) sucralfate 1 gram tablet 1 g PO QACHS #56 tabs 05/29/25 Rx prednisone 20 mg tablet 20 mg PO QDAY #5 tabs 05/29/25 Rx rabeprazole 20 mg tablet,delayed 20 mg PO QDAY #90 tab s 03/05/25 05/29/25 Rx release (AcipHex) atorvastatin 20 mg tablet 20 mg PO DAILY #90 tabs 02/1805/29/25 Rx estradiol 0.01% (0.1 mg/gram) See Rx Instructions vagi nal 03/16/25 05/29/25 Rx vaginal cream .COMPLEX #42.5 grams citalopram 20 mg tablet (Celexa) 20 mg PO QDAY 5 History Is last menstrual period known: No Patient : No : No PFSH Medical History History of hiatal hernia Heartburn Wears glasses Post-menopausal Anxiety Injury of head and neck Gastric reflux Former smoker History of irregular heartbeat High cholesterol Hiatal hernia Surgical History History of salpingectomy S/P laparoscopic cholecystectomy Hx of esophagogastroduodenoscopy Hx of colonoscopy Hx of tonsillectomy Encounter for Essure implantation History of removal of cyst Family History Mother Diabetes History of blood clots Anxiety Hypertension Father Diabetes Hypertension Pancreatic cancer Sister History of blood clots Lymphedema Grandmother Diabetes Sister GERD (gastroesophageal reflux disease) Social History adopted: No household members: spouse 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 (2) pets and animals: dog(s) history of recent travel: No Smoking Status: Former smoker quit date: 08/20/94 pack-years: 5 Tobacco: How many years used: 5 Electronic Cigarette Use: not used alcohol intake: never substance use type: does not use diet: low carbohydrate caffeine: Yes (2) Type: coffee frequency: 3-4 times per week ni/episcopal: Mosque seatbelt use: always do you feel safe at home: Yes additional social history: - [place]- on disability HPI SURGICAL CONSULT ESSURE DEVICE REMOVAL Details: The patient is a 66-year-old female with a history of Essure placement presenting for evaluation of pelvic pain. Pelvic Pain - Essure placement in 2005. - Reports onset of pelvic pain in November, described as cramping and sharp stabbing pains, primarily on the right side. - Pain is constant but had a brief period of resolution before resuming last week. - Associated with bleeding for about six weeks at the onset of pain, but no bleeding since. - Ultrasound and CT scan show linear echogenic structures in the uterine fundus bilaterally, likely representing intratubal contraceptive devices; no fibroids or thickened endometrial lining noted. Anxiety - History of anxiety, currently managed without medication. Hypercholesterolemia - History of high cholesterol, currently managed without medication. GERD - History of gastroesophageal reflux disease, currently managed without medication. History 2 Elective abortions 1 Hx Para 0 Spontaneous abortions 1 Hx # Term Pregnancies Ectopic pregnancies Hx # Pregnancies Multiple births # of living children 0 ROS Const ROS Unobtainable: All systems reviewed & are unremarkable except as noted in H Resp Resp: Reports system reviewed and no additional complaints, except as documented; Denies cough GI GI: Reports as per HPI Psych Psych: Reports system reviewed and no additional complaints, except as documented Exam Const General: cooperative, healthy appearing, comfortable and no acute distress Resp Effort & Inspection: normal respiratory effort Skin General: no rashes or lesions noted Psych Appearance: grossly normal Speech and Movement: speech and movement normal Coding Level of Care Code Off vis,est,level 4 Diagnoses Pelvic pain R10.2 Encounter for removal of Essure Z45.89 Assessment and Plan Assessment and Plan (1) Pelvic pain: Status: Acute Comment: essure devices in place Plan: # Presence of other specified functional implants (Z96.89) # Pelvic and perineal pain (R10.20) - Chronic pelvic pain likely secondary to Essure device migration; ultrasound and CT imaging demonstrate linear echogenic structures in the uterine fundus bilaterally consistent with intratubal contraceptive devices. - Discussed that while pain is presumed to be due to Essure device migration, other etiologies are possible. - Discussed surgical options, including laparoscopic removal of fallopian tubes containing Essure coils as an outpatient procedure; explained that if coils are embedded in the myometrium, hysterectomy may be required. - Reviewed procedure details, including typical incisions, expected duration (<1hour), and recovery time (approximately 3 days). - Discussed potential risks and benefits of surgery, including possibility of incomplete removal and need for further intervention. - Patient expressed understanding and desire to proceed as soon as possible. - Order sent to surgery department for scheduling; patient to be notified of date. # Encounter for other preprocedural examination (Z01.818) - No significant comorbidities identified that would increase surgical risk. (2) Encounter for removal of Essure: Status: Acute Plan: - Scheduled laparoscopic procedure for removal of Essure coils from fallopian tubes; will assess if further surgery, such as a hysterectomy, is needed based on the presence of any remaining coil segments. - Provided CPT code 8661 for removal of fallopian tubes for insurance purposes. - Advised patient to allow for a recovery period of approximately 3 days post-procedure before engaging in activities such as driving out of state. - No surgical clearance needed given patient's overall good health and absence of significant comorbidities such as heart disease or diabetes. - Follow-up will be determined post-procedure to assess patient's recovery and need for any additional interventions. Plan We discussed your pelvic pain and history of Essure placement: - You have been experiencing cramping and sharp, stabbing pain primarily on yourright side since November. This pain may be related to the Essure coils placed in 2005, as imaging (ultrasound and prior CT scan) shows the coils in place, which could potentially be causing irritation or migration. - Your ultrasound showed a normal-sized uterus with no fibroids or thickened lining, and no signs of cancer cells. The coils were noted in the uterine fundusbilaterally, which may be contributing to your symptoms. We discussed treatment options: - I recommend starting with a laparoscopic procedure to remove the fallopian tubes containing the Essure coils. This will be an outpatient procedure with a recovery time of about three days. During the procedure, I will attempt to remove the coils entirely. If any coil fragments remain embedded in the uterine muscle, further surgery, such as a hysterectomy, may be required, but this will only be determined after the initial procedure. - After the procedure, we will follow up to assess how you are feeling and may perform additional imaging (MRI or CT scan) to confirm that all coil fragments have been removed. We discussed the surgical process and recovery: - The laparoscopic procedure typically takes less than an hour. You will have small incisions: one in your belly button, one above your pubic bone, and one onthe side, forming a triangular pattern. - You should plan to rest at home for three days after the procedure to monitor for any complications, though none are anticipated. Driving out of state after this recovery period should not be an issue. Next steps: - I will send an order to the surgery department to schedule your procedure as soon as possible. They will contact you with the date, which may be within the next week or so. - You do not need surgical clearance, as you are otherwise healthy with no significant medical conditions beyond mild anxiety, high cholesterol, and reflux. Please let us know if you have any questions or concerns before the procedure. We will contact you soon with the surgery date. 05/29/25 1449 <Electronically signed by Jannette Anderson DO> Date _ Jannette Vegasign Signature: Date (if applicable) CC: ~ [employer] Work Phone: 1(268) 701-361807-25-2025 Radiology Diagnostic study note [facility] Imaging Services [address] [place], [place] [id number] Pelvic w/ Transvaginal MR#: [id number] Acct: [id number] Name: EDWARD PARADA DIAMANTE Rep #: [id number] : 1960 F 64 From: Faith Zhang MD PCP: Dr. Ann Dennison MD Status: REG CLI Study:Pelvic w/ Transvaginal Date of Exam: 03/10/25 Exam# [id number] Ordering Dr: Raquel Crump NP PROCEDURE: PELVIC W/ TRANSVAGINAL 03/10/2025 REASON FOR EXAM: POSTMENOPAUSAL BLEEDING TECHNIQUE: PELVIC W/ TRANSVAGINAL. Transabdominal and transvaginal grayscale, color and spectral Doppler pelvic ultrasound. COMPARISON: CT Abdomen and Pelvis w/Contrast, 10/13/2024 FINDINGS: ENDOMETRIUM: Homogeneous. Normal thickness of 3.2 mm. No abnormal endometrial color Dopplerflow. UTERUS: Anteverted. Normal size measuring 7.0 x 4.2 x 3.3 cm with parenchymal heterogeneity. Linear echogenic structures at the fundus bilaterally, may represent intratubal contraceptive devices, which were present on the prior CT. Nofibroid detected. CERVIX: Normal size and contour. RIGHT OVARY: Not visualized. LEFT OVARY: Normal size measuring 2.9 x 2.0 x 1.8 cm with anechoic 1.4 x 1.4 x 1.1 cm follicle. Normal blood flow. No adnexal mass. FREE FLUID: No free fluid. OTHER: Normal appearance of the urinary bladder. US/Pelvic w/ Transvaginal IMPRESSION: 1. No acute pelvic ultrasound abnormality. 2. Linear echogenic structures at the uterine fundus bilaterally, may representintratubal contraceptive devices, which were present on the prior CT. Clinical correlation suggested. Reading Location: [id number] CC: ELBA Crump; Dr. Ann Dennison MD ~ Commercial Electrician: Signed [facility]07-01-2025 Evaluation note* Diagnosis Onset Date Resolution Status Admit Date Acute URI noneactive February 17, 2025 12:46pm Anxiety noneactive February 17, 2025 12:46pm Mixed hyperlipidemia noneactive February 17, 2025 12:46pm Tremor noneactive February 17, 2025 12:46pm GERD (gastroesophageal reflu x disease) noneactive February 17, 2025 12:46pm Vitamin d deficiency noneactive February 17, 2025 12:46pm Atrophic vaginitis acute February 252024 11:30am Postmenopausal bleeding acute J mara 2024 11:30am Vaginal burning noneactive February 25, 2025 11:30am [facility] Work Phone: 1(370) 600-427807-01-2025 Evaluation note* Diagnosis Onset Date Resolution Status Admit Date Acute URI noneactive February 17, 2025 12:46pm Anxiety noneactive February 17, 2025 12:46pm Mixed hyperlipidemia noneactive February 17, 2025 12:46pm Tremor noneactive February 17, 2025 12:46pm GERD (gastroesophageal reflu x disease) noneactive February 17, 2025 1 2:46pm Vitamin d deficiency noneactive February 17, 2025 12:46pm Atrophic vaginitis acute February 252024 11:30am Postmenopausal bleeding acute J mara 2024 11:30am Vaginal burning noneactive February 25, 2025 11:30am Atrophic vaginitis acute April 14, 2025 12:52pm Pelvic pain acute April 14, 2025 12:52pm Encounter for removal of Essure acute May 29 1:43pm Pelvic pain acute May 29, 2025 1:43pm [facility] Work Phone: 1([phone]) 491-306506-19-2025 Telephone encounter Note* Telephone Encounter - Yudy Smith APRN.CNP - 02/05/2025 10:03 AM EDT Patient identified by name and date of . Rx sent to pharmacy and patient notified via phone call. Yudy Smith APRN.CNP [facility]06-19-2025 Miscellaneous Notes* Telephone Encounter - Yudy Esparza APRN.CNP - 02/05/2025 10:03 AM EDT Patient identified by name and date of . Rx sent to pharmacy and patient notified via phone call. Yudy Smith APRN.CNP * Telephone Encounter - Naty Castañeda RN - 02/05/2025 9:49 AM EDT Patient was seen by [facility] provider on 02/04/25 and was to be ordered an antibiotic which was to be sent to [facility]. Patient calling in to states the script was never sent. She is asking if provider could send it. Please call patient back with an update. [phone] Naty Castañeda RN documented [facility] Telephone encounter Note * Telephone Encounter - Naty Castañeda RN - 02/05/2025 9:49 AM EDT Patient was seen by Critical access hospital provider on 02/04/25 and was to be ordered an antibiotic which was to be sent to [facility]. Patient calling in to states the script was never sent. She is asking if provider could send it. Please call patient back with an update. [phone] Naty Castañeda RN [facility]06-18-2025 Instructions* Patient Instructions* Yudy Smith APRN.CARE TEAM COORDINATOR SCHEDULER - 02/04/2025 6:28 PM EDT 1. Acute pharyngitis, unspecified etiology (J02.9) - Pharyngitis with erythematous throat on examination; strep test negative, likely viral etiology. - Advised symptomatic treatment and rest. 2. Other acute nonsuppurative otitis media of right ear, recurrence not specified (H65.191) - Right ear examination reveals erythematous and bulging tympanic membrane. - Initiated antibiotic therapy; prescription sent to pharmacy. - Start the antibiotic prescribed for your right ear infection; the prescription has been sent to your pharmacy. - Stop using your generic Dayquil/Nyquil cold medicine that contains a decongestant. - Take Coricidin (available over the counter) to help relieve congestion without raising your bloodpressure. - Let your sore throat and other viral symptoms run their course and treat discomfort as needed. - Get plenty of rest to support your recovery. documented in this encounter[facility]2025 NoteHNO ID: [id number] Author: YUDY SMITH APRN.CARE TEAM COORDINATOR SCHEDULER Service: ? Author Type: Nurse Practitioner Type: Progress Notes Filed: 02/04/2025 18:28 Note Text: [facility] Subjective Edward Parada is a 64 year old female. Patient presents with: Ear Pain: ZEYNEP ear pain, congestion, cough,drainage, sore throat, nausea x 2 days Ear Pain Ear Pain, Congestion, Sore Throat, Fever, and Nausea: - Symptoms began on Sunday. - Sore throat, rated 9/10 on pain scale. - Right ear pain, congestion, and nausea. - Fever up to 100.2 degreeF at home; chills noted. - Dry cough last night; denies dyspnea, myalgias, emesis, or diarrhea. - Took a COVID test this morning, which was negative. - Recent overnight trip to [place] on Sunday; denies exposure to sick contacts. - Taking generic cold medicine since yesterday. Review of Systems Constitutional: (+) fever, (+) chills Ears/Nose/Mouth/Throat: (+) right ear pain, (+) nasal congestion, (+) sore throat, (+) odynophagia Respiratory: (+) dry cough, (-) shortness of breath Gastrointestinal: (+) nausea, (-) vomiting, (-) diarrhea Objective BP 120/100 Pulse 95 Temp (!) 38 ?C (100.4 ?F) Resp 19 Wt 110.7 kg (244 lb 0.8 oz) SpO2 95% No past medical history on file. No past surgical history on file. ALLERGIES Patient has no known allergies. MEDICATIONS - atorvastatin (LIPITOR) 20 mg tablet 20 mg. - pantoprazole DR (PROTONIX) 40 mg tablet - sucralfate (CARAFATE) 1 gram tablet TAKE 1 TABLET BY MOUTH 1 HOUR BEFORE MEALS AND AT BEDTIME - citalopram hydrobromide (CELEXA) 10 mg tablet Take 10 mg by mouth once daily. No family history on file. Social History Tobacco Use - Smoking status: Former - Smokeless tobacco: Never Physical Exam Vitals and nursing note reviewed. Constitutional: General: She is not in acute distress. Appearance: Normal appearance. She is not ill-appearing. HENT: Right Ear: Ear canal and external ear normal. Tympanic membrane is erythematous and bulging. Left Ear: Tympanic membrane, ear canal and external ear normal. Nose: Nose normal. Mouth/Throat: Mouth: Mucous membranes are moist. Pharynx: Oropharynx is clear. Uvula midline. Posterior oropharyngeal erythema present. No pharyngeal swelling, oropharyngeal exudate or uvula swelling. Tonsils: No tonsillar exudate. Cardiovascular: Rate and Rhythm: Normal rate and regular rhythm. Heart sounds: Normal heart sounds. Pulmonary: Effort: Pulmonary effort is normal. No respiratory distress. Breath sounds: Normal breath sounds. No wheezing or rales. Lymphadenopathy: Cervical: No cervical adenopathy. Skin: General: Skin is warm and dry. Findings: No erythema or rash. Neurological: Mental Status: She is alert. General: No acute distress. HEENT: Pharynx erythematous; right tympanic membrane erythematous and bulging; cervical lymphadenopathy. CV: Heart rate regular. Resp: Lungs clear to auscultation bilaterally. {1. Acute pharyngitis, unspecified etiology (J02.9) - Pharyngitis with erythematous throat on examination; strep test negative, likely viral etiology. - Advised symptomatic treatment and rest. 2. Other acute nonsuppurative otitis media of right ear, recurrence not specified (H65.191) - Right ear examination reveals erythematous and bulging tympanic membrane. - Initiated antibiotic therapy; prescription sent to pharmacy. 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 History obtained from or confirmed by: spouse. Systemic symptoms present included: Disposition The patient was discharged. [facility] History of Present illness Narrative* Yudy Smith APRN.CARE TEAM COORDINATOR SCHEDULER - 02/04/2025 6:27 PM EDT [facility] Subjective Edward Parada is a 64 year old female. Patient presents with: Ear Pain: ZEYNEP ear pain, congestion, cough,drainage, sore throat, nausea x 2 days Ear Pain Ear Pain, Congestion, Sore Throat, Fever, and Nausea: - Symptoms began on Sunday. - Sore throat, rated 9/10 on pain scale. - Right ear pain, congestion, and nausea. - Fever up to 100.2 degreeF at home; chills noted. - Dry cough last night; denies dyspnea, myalgias, emesis, or diarrhea. - Took a COVID test this morning, which was negative. - Recent overnight trip to [place] on Sunday; denies exposure to sick contacts. - Taking generic cold medicine since yesterday. Review of Systems Constitutional: (+) fever, (+) chills Ears/Nose/Mouth/Throat: (+) right ear pain, (+) nasal congestion, (+) sore throat, (+) odynophagia Respiratory: (+) dry cough, (-) shortness of breath Gastrointestinal: (+) nausea, (-) vomiting, (-) diarrhea Objective BP 120/100 Pulse 95 Temp (!) 38 C (100.4 F) Resp 19 Wt 110.7 kg (244 lb 0.8 oz) SpO2 95% No past medical history on file. No past surgical history on file. ALLERGIES Patient has no known allergies. MEDICATIONS atorvastatin (LIPITOR) 20 mg tablet [address] (PROTONIX) 40 mg tablet sucralfate (CARAFATE) 1 gram tablet TAKE 1 TABLET BY MOUTH 1 HOUR BEFORE MEALS AND AT BEDTIME citalopram hydrobromide (CELEXA) 10 mg tablet Take 10 mg by mouth once daily. No family history on file. Social History Tobacco Use Smoking status: Former Smokeless tobacco: Never Physical Exam Vitals and nursing note reviewed. Constitutional: General: She is not in acute distress. Appearance: Normal appearance. She is not ill-appearing. HENT: Right Ear: Ear canal and external ear normal. Tympanic membrane is erythematous and bulging. Left Ear: Tympanic membrane, ear canal and external ear normal. Nose: Nose normal. Mouth/Throat: Mouth: Mucous membranes are moist. Pharynx: Oropharynx is clear. Uvula midline. Posterior oropharyngeal erythema present. No pharyngeal swelling, oropharyngeal exudate or uvula swelling. Tonsils: No tonsillar exudate. Cardiovascular: Rate and Rhythm: Normal rate and regular rhythm. Heart sounds: Normal heart sounds. Pulmonary: Effort: Pulmonary effort is normal. No respiratory distress. Breath sounds: Normal breath sounds. No wheezing or rales. Lymphadenopathy: Cervical: No cervical adenopathy. Skin: General: Skin is warm and dry. Findings: No erythema or rash. Neurological: Mental Status: She is alert. General: No acute distress. HEENT: Pharynx erythematous; right tympanic membrane erythematous and bulging; cervical lymphadenopathy. CV: Heart rate regular. Resp: Lungs clear to auscultation bilaterally. {1. Acute pharyngitis, unspecified etiology (J02.9) - Pharyngitis with erythematous throat on examination; strep test negative, likely viral etiology. - Advised symptomatic treatment and rest. 2. Other acute nonsuppurative otitis media of right ear, recurrence not specified (H65.191) - Right ear examination reveals erythematous and bulging tympanic membrane. - Initiated antibiotic therapy; prescription sent to pharmacy. 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 History obtained from or confirmed by:spouse. Systemic symptoms present included: Disposition The patient was discharged. OTC Medications were advised: Procedures documented in this [facility] Evaluation note* Diagnosis Onset Date Resolution Status Admit Date Encounter for routine gynecological examination noneactive December 10, 2024 12:56pm Anxiety noneactive February 17, 2025 12:46pm Mixed hyperlipidemia noneactive February 17, 2025 12:46pm GERD (gastroesophageal reflu x disease) noneactive February 17, 2025 12:46pm Vitamin d deficiency noneactive February 17, 2025 12:46pm [facility] Work Phone: 1(285) 749-763604-23-2025 Evaluation note* Diagnosis Onset Date Resolution Status Admit Date Encounter for routine gynecological examination noneactive December 10, 2024 12:56pm Acute URI noneactive February 17, 2025 12:46pm Anxiety noneactive February 17, 2025 12:46pm Mixed hyperlipidemia noneactive February 17, 2025 12:46pm Tremor noneactive February 17, 2025 12:46pm GERD (gastroesophageal reflu x disease) noneactive February 17, 2025 12:46pm Vitamin d deficiency noneactive February 17, 2025 12:46pm [facility] Work Phone: [phone] Evaluation note* Diagnosis Onset Date Resolution Status Admit Date Encounter for routine gynecological examination noneactive December 10, 2024 12:56pm Acute URI noneactive February 17, 2025 12:46pm Anxiety noneactive February 17, 2025 12:46pm Mixed hyperlipidemia noneactive February 17, 2025 12:46pm Tremor noneactive February 17, 2025 12:46pm GERD (gastroesophageal reflu x disease) noneactive February 17, 2025 12:46pm Vitamin d deficiency noneactive February 17, 2025 12:46pm Atrophic vaginitis acute February 252024 11:30am Postmenopausal bleeding acute J 2024 11:30am Vaginal burning noneactive February 25, 2025 11:30am [facility] Work Phone: 1(515) 166-401603-17-2025 Consult note [facility] Medical Records Department [address] [place] [address] Anesthesia Postop Eval II 11/03/24 1114 MR#: [id number] Acct: [id number] Name: EDWARD PARADA Rep #:[id number] : 1960 64 From: Kailyn Benitez PCP: Dr. 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.PKEL Spontaneous unlabored Yes 11/03/24 10:48 HOUSING QUALITY STANDARD INSPECTOR.PKEL respirations Mental status Awake,Calm 11/03/24 10:48 HOUSING QUALITY STANDARD INSPECTOR.PKEL nausea No 11/03/24 10:48 HOUSING QUALITY STANDARD INSPECTOR.PKEL Vomiting No 11/03/24 10:48 HOUSING QUALITY STANDARD INSPECTOR.PKEL Anesthesia Postop Eval I: Fluid Summary Crystalloid volume administer 30 11/03/24 10:48 HOUSING QUALITY STANDARD INSPECTOR.PKEL (ml) Colloids volume administered ( ml) Blood Product volume administered (ml) Total IV fluid infused 30 11/03/24 10:48 HOUSING QUALITY STANDARD INSPECTOR.PKEL Anesthesia Postop Eval I: Summary Notes Anesthesia Complication No 11/03/24 10:48 HOUSING QUALITY STANDARD INSPECTOR.PKEL Anesthesia Complication Comment: Post-operative progress note Anesthesia: Postop Eval II Evaluation Mental status: Awake Pain Level: 0 nausea: No Vomiting: No 11/03/24 1114 a> Date _ Kailyn Yancey Signature: Date CC: ~ Signed [facility]03-17-2025 Consult note [facility] Medical Records Department [address] [facility] [place] [address] Anesthesia Postop Eval I 11/03/241046 MR#: [id number] Acct: [id number] Name: EDWARD PARADA DIAMANTE Rep #:[id number] : 1960 64 From: Fredy Salguero CRNA PCP: Dr. Ann Dennison MD Status:REG SDC Y Race: C Location: [place] [address] Anesthesia: Postop Eval I Current Vital Signs Temperature: 97.1 F Pulse Rate: 65 Blood Pressure: 101/58 Respiratory Rate: 20 Pulse Ox: 96 Oxygen Delivery Method: Room Air Assessment Airway patent: Yes Spontaneous unlabored respirations: Yes Mental status: Awake and Calm nausea: No Vomiting: No Anesthesia Complication: No Fluid Hydration Crystalloid volume administer (ml): 30 Total IV fluid infused: 30 Progress Note Anesthesia document: Postop Eval 1 completed: Yes 11/03/24 1048 y HOUSING QUALITY STANDARD INSPECTOR> Date _ Fredy Salguero HOUSING QUALITY STANDARD INSPECTOR Cosigner Signature: Date CC: ~ Signed [facility]03-17-2025 Procedure note [facility] Medical Records Department [address] [place] [address] EGD Report MR#: [id number] Acct: [id number] Name: EDWARD PARADA Rep #:[id number] : 1960 64 From: Alcira Vizcarra MD PCP: Dr. Ann Dennison MD Status:[facility] Patient Name: Edward Parada Procedure Date: 11/03/2024 10:22 AM Date of : 1960 Age: 64 Procedure: Upper GI endoscopy Indications: Heartburn Providers: Alcira Vizcarra MD Referring MD: Ann Dennison Md Medicines: Monitored Anesthesia Care Patient Profile: This is a 64 year old female. Complications: No immediate complications. Procedure: Pre-Anesthesia Assessment: - Prior to the procedure, a History and Physical was performed, and patient medications and allergies were reviewed. The patient's tolerance of previous anesthesia was also reviewed. The risks and benefits of the procedure and the sedation options and risks were discussed with the patient. All questions were answered, and informed consent was obtained. Prior Anticoagulants: The patient has taken no anticoagulant or antiplatelet agents. ASA Grade Assessment: Per anesthesia. After reviewing the risks and benefits, the patient was deemed in satisfactory condition to undergo the procedure. After obtaining informed consent, the endoscope was passed under direct vision. Throughout the procedure, the patient's blood pressure, pulse, and oxygen saturations were monitored continuously. The gastroscope was introduced through the mouth, and advanced to the second part of duodenum. The upper GI endoscopy was accomplished without difficulty. The patient tolerated the procedure well. Scope In: 10:33:08 AM Scope Out: 10:38:46 AM Total Procedure Duration Time 0 hours 5 minutes 38 seconds Findings: The Z-line was variable and was found 43 cm from the incisors. Biopsies were taken with a cold forceps for histology. The cardia and gastric fundus were normal on retroflexion. No gross lesions were noted in the entire esophagus. The examined duodenum was normal. Moderately erythematous mucosa without bleeding was found in the gastric antrum. Biopsies were taken with a cold forceps for histology. Biopsies were taken with a cold forceps for Helicobacter pylori cultures. Impression: - Z-line variable, 43 cm from the incisors. Biopsied. - No gross lesions in the entire esophagus. - Normal examined duodenum. - Erythematous mucosa in the antrum. Biopsied. Recommendation: - Await pathology results. - Continue present medications. Procedure Code(s): --- Professional --- 67281, Esophagogastroduodenoscopy, flexible, transoral; with biopsy, single or multiple Diagnosis Code(s): --- Professional --- K22.89, Other specified disease of esophagus K31.89, Other diseases of stomach and duodenum R12, Heartburn CPT copyright 2021 [employer]. All rights reserved. The codes documented in this report are preliminary and upon wash driller helper review may be revised to meet current compliance requirements. MD Alcira Aleman MD 11/03/2024 10:44:35 AM This report has been signed electronically. Number of Addenda: 0 Note Initiated On: 11/03/2024 10:22 AM 11/03/24 1044 Date _ Alcira Vizcarra MD Cosigner Signature: Date (if indicated) CC: Dr. Ann Dennison MD; Dr. Alcira Vizcarra MD ~ Date Dictated: 11/03/24 1022 Date Transcribed: Commercial Electrician: TR Signed [facility]03-17-2025 Procedure note [facility] Medical Records Department [address] [place] [address] [place] [address] Operative Report - CC Letter MR#: [id number] Acct: [id number] Name: EDWARD PARADA Rep #:[id number] : 1960 64 From: Alcira Vizcarra MD PCP: Dr. Ann Dennison MD Status:REG [facility] 11/03/2024 Ann Dennison Md Re : Upper GI endoscopy procedure for Edward Parada Dear Jesi This procedure was performed on Sunday, November 03, 2024. My impressions and recommendations are as follows: Impressions : - Z-line variable, 43 cm from the incisors. Biopsied. - No gross lesions in the entire esophagus. - Normal examined duodenum. - Erythematous mucosa in the antrum. Biopsied. Recommendations : - Await pathology results. - Continue present medications. My findings are described in the full procedure note, which is enclosed. If I can be of further assistance, please feel free to contact me at Doctor phone number(s): , Work: . Sincerely, MD Alcira Aleman MD 11/03/2024 10:44:35 AM This report has been signed electronically. 11/03/24 1044 Date _ Alcira Vizcarra MD Cosigner Signature: Date (if indicated) CC: Dr. Ann Dennison MD; Dr. Alcira Vizcarra MD ~ Date Dictated: 11/03/24 1022 Date Transcribed: Commercial Electrician: TR Signed [facility]03-17-2025 History and physical note [facility] Medical Records Department [address] [place] [address] History & Physical Exam 11/03/24 0946 MR#: [id number] Acct: [id number] Name: EDWARD PARADA Rep #:[id number] : 1960 64 From: Alcira Vizcarra MD PCP: Dr. Ann Dennison MD Status:REG [facility] Location: [place] [address] History and Physical Date of Admission: 11/03/24 Date of Service: 10/08/24 MR#: [id number] Acct: [id number] Name: EDWARD PARADA Rep #: [id number] : 1960 Provider: Dr. Alcira Vizcarra MD Age/Sex: 64/F Location: [facility] Status: Signed Intake Vital Signs 09/22/2513:06 10/08/2514:08 Height 5 ft 2 in 5 ft 2 in Weight: 245 lb 248 lb BMI 44.8 45.3 BP 132/80 H 124/83 H Blood Pressure Location Lt brachial Rt brachial Position Sitting Sitting Respiration 16 7 L Pulse 77 84 Pulse Source Monitor Monitor Temp 98.8 F Temp Source Temporal Pulse Oximetry (%) 95 98 Oxygen Delivery Method room air room air Intake Visit Reasons: GERD Chief Complaint: gerd Is patient in pain?: No Allergies No Known Allergies Allergy (Verified 10/08/24 15:09) Medications ?Medication ?Instructions ?Recorded ?Confirmed ?Type cholecalciferol (vitamin D3) 10 10 mcg PO DAILY 06/14/23 10/08/24 Histor y mcg (400 unit) capsule magnesium 200 mg tablet 200 mg PO DAILY 06/14/23 10/08/24 Histor y fluticasone propionate 50 1 spray intranasal DAILY PRN 03/20/24 History mcg/actuation nasal spray,suspension (Flonase Allergy Relief) multivitamin with minerals 1 cap PO DAILY 03/20/24 10/08/24 History melatonin 10 mg capsule 10 mg PO HS PRN 09/02/24 10/08/24 Histor y ondansetron 4 mg disintegrating 4 mg PO Q8H PRN nausea and 09/02/2409/20 Rx tablet vomiting #20 tabs citalopram 20 mg tablet (Celexa) 30 mg (1.5 x 20 mg) PO QDAY #135 09/22/ 5 02/19/25 Rx tabs atorvastatin 20 mg tablet 20 mg PO DAILY #90 tabs 09/29/24 5 Rx pantoprazole 40 mg tablet,delayed 40 mg PO QDAY #90 tabs 09/29/24 10/08/24 Rx release (Protonix) lactobacillus combination no.4 3 3,000 mmu cells PO QDAY 10/08/24 5 History billion cell capsule (Probiotic) sucralfate 1 gram tablet 1 g PO QACHS #56 tabs 10/08/24 10/08/24 Rx Have you fallen in the past year?: No PFSH Medical History Wears glasses Post-menopausal Anxiety Injury of head and neck Gastric reflux Former smoker History of irregular heartbeat High cholesterol Hiatal hernia Surgical History History of salpingectomy S/P laparoscopic cholecystectomy Hx of esophagogastroduodenoscopy Hx of colonoscopy Hx of tonsillectomy Encounter for Essure implantation History of removal of cyst Family History Mother Diabetes History of blood clots Anxiety HypertensionFather Diabetes Hypertension Pancreatic cancerSister History of blood clots LymphedemaGrandmother DiabetesSister GERD (gastroesophageal reflux disease) Social History adopted: No household members: spouse 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 (2) pets and animals: dog(s) history of recent travel: No Smoking Status: Former smoker quit date: 08/20/94 pack-years: 5 Tobacco: How many years used: 5 Electronic Cigarette Use: not used alcohol intake: never substance use type: does not use diet: low carbohydrate caffeine: Yes (2) Type: coffee frequency: 3-4 times per week ni/episcopal: Mosque seatbelt use: always do you feel safe at home: Yes additional social history: - Lindsay- on disability Female Reproductive History Menstrual Date of menopause: 12/24/13 Ab induced: 1 Ab spontaneous: 1 HPI HPI HPI: 64-year-old female presents due to right upper quadrant and epigastric pain for an EGD. Patient previous had an EGD by Dr. Sun in 2022 may have had a hiatalhernia at that time per patient. Patientdoes have a history of H. pylori but that was about 30 years ago. Patient did have a stool antigen test that was negative recently. Patient states she has been on omeprazole 20 mg p.o. daily about 3 years did up to 40 mg for about 2 weeks did not notice a change however just changed to Protonix 40 mg and states that her daily sharp pain has resolvedshe still only has a dull constant pain little more in the right upper quadrant. Patient is status post laparoscopic cholecystectomy. ROS General General: Yes weight change; No appetite, fatigue, colon cancer or breast cancer HEENT HEENT: No difficulty swallowing, eye injury, eye surgery, swollen glands or hoarseness Endo Endocrine: No thyroid disease, diabetes mellitus, thyroid cancer, Hair loss, heat intolerance or cold intolerance Skin Skin: No rash or changing moles Musc Musculoskeletal: Yes back problems; No arthritis, rheumatoid arthritis, gout or joint pain Cardio Cardiovascular: Yes murmur; No pacemaker, heart disease, atrial fibrillation, high blood pressure, heart attack, heart stent, palpitations, shortness of breat with exertion or chest pain Psych Psychiatric: Yes anxiety; No depression or hearing voices Resp Respiratory: No shortness of breath, Yes sleep apnea, Yes cough, No COPD, No asthma, No emphysema and No wheezing Gastro Gastrointestinal: Yes abdominal pain, Yes nausea or vomiting, Yes diarrhea, No constipation, No blood in stool, Yes acid reflux, No hemorrhoids, No ulcers, Yesgallbladder problem and No black,tarry stools Uriah Hematologic: No blood thinners, No blood disorders, No bleeding, No anemia and No blood clots Neuro Neurologic: No numbness and No tingling Exam Const General: cooperative, healthy appearing, comfortable and no acute distress [facility] Head: normocephalic and atraumatic Neck Neck: supple Resp Effort & Inspection: normal respiratory effort Cardio Rate: regular rate GI Inspection: non-distended Palpation: soft and tender (Mild right upper quadrant and epigastric, no peritoneal signs) Skin General: no rashes or lesions noted Neuro General: CN's II-XI intact bilaterally Extrem General: normal to inspection Psych Mental Status: mental status grossly normal Attitude: cooperative Assessment and Plan Assessment and Plan (1) Gastric reflux: Status: Acute Comment: CONTROLLED WITH MED (2) Epigastric abdominal pain: Status: Acute (3) RUQ pain: Status: Acute Medications: New sucralfate Take an hour before meals and at bedtime 1 g PO QACHS 56 tabs 0RF Plan Also add Carafate see if that helps with her abdominal pain as well. I have discussed the above with the patient. I have offered the patient esophagogastroduodenoscopy for evaluation. I have explained the risks/benefits of the procedure and described the procedure. I have discussed the risks with the patient, including but not limited to: infection, bleeding, perforation of the GItract requiring emergency surgery, inability to complete the procedure, injury to any internal organs, complications of anesthesia, etc. - the patient understands and agrees to proceed. I have answered all the patient's questions to the patient's satisfaction and the patient has no further questions. Alcira Vizcarra M.D. Pager: [phone] [facility] [address] [place] [address], [address] [place] [address] Office: [phone] Coding Level of Care Code Off vis,est,level 3 Diagnoses Gastric reflux K21.9 Epigastric abdominal pain R10.13 RUQ pain R10.11 Clinical Quality Measures Falls Risk Screening/Assistive Devices Have you fallen in the past year?: No 10/08/24 1539 Date Alcira Vizcarra MD 11/03/24 1019 Cosigner Signature (if applicable): CC: Dr. Ann Dennison MD; Dr. Alcira Vizcarra MD~ Signed ADDENDUM by Dr. Alcira Vizcarra MD on 11/03/24 at 1020 Addendum I have examined the patient the following changes are noted: Patient's heartburnhas improved with Carafate. 11/03/24 1020 Cosigner Signature (if applicable): cc: Dr. Ann Dennison MD; Dr. Alcira Vizcarra MD ~* Signed [facility]03-17-2025 Consult note [facility] Medical Records Department [address] [place] [id number] Pre-Anesthesia Evaluation 11/03/24 1015 MR#: [id number] Acct: [id number] Name: EDWARD PARADA Rep #:[id number] : 1960 64 From: Akbar Angeles MD PCP: Dr. Ann Dennison MD Status:REG SD Y Race: C Location: [place] [address] ASA Classification* ASA Classification ASA Classification: 3 Assessment & Plan Anesthesia* Anesthesia Assessment Anesthesia Assessment: Discussed sedation and/or anesthesia options, risks, benefits, and alternatives with patient/parents/legal guardian/POA. Questions invited. The patient/parents/legal guardian/POA seems to understand and agrees to proceedwith anesthesia plan. Reviewed the physical assessment, medical history, allergy history and patient home medications list prior to surgery/procedure/anesthetic and documented any changes. Performed airway and anesthesia risk assessments. Anesthesia Type Anesthesia Type: MAC History Source History Obtained from:: Patient and Chart Anesthesia Focused Assessment* Temperature: 97.4 F Pulse Rate: 69 Blood Pressure: 113/74 Respiratory Rate: 18 Pulse Ox: 97 Oxygen Delivery Method: Room Air Airway Assessment Mouth opens: >3 cm Mallampati Score: IV Teeth Condition: Caps/Crowns (Ehrenberg on left lower molar. It is tight.) Neck Range of motion (ROM): Limited ROM (Somewhat decreased extension) Focused Labs Anesthesia Preop lab: CBC WBC 7.2 K/mm3 (4.4-11.0) 09/02/24 15:34 09/02/24 RBC 4.64 M/mm3 (4.2-5.4) 09/02/24 15:34 09/02/24 Hgb 14.2 g/dL (12.0-15.0) 09/02/24 15:34 09/02/24 Hct 43.1 % (37-47) 09/02/24 15:34 09/02/24 Plt Count 246 K/mm3 (150-450) 09/02/24 15:34 09/02/24 CHEMISTRY Potassium 4.3 mmol/L (3.5-5.1) 09/02/24 15:34 09/02/24 Sodium 140 mmol/L (136-145) 09/02/24 15:34 09/02/24 BUN 20 mg/dL (7-18) H 09/02/24 15:34 09/02/24 Creatinine 0.78 mg/dL (0.55-1.02) 09/02/24 15:34 09/02/24 Glucose 100 mg/dL (74-106) 09/02/24 15:34 09/02/24 COAG Pre-Assessment Diagnosis/Proposed Procedure Planned Operative Procedure(s): EGD Anesthesia History 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 When Was Last Pacemaker Check QUESTION #4 FULL TEXT: You/Your Family Experience fever (hyperthermia) with Anesthesia Last Oral Intake Last Oral intake: Last Oral Intake NPO since 18:00 11/03/24 08:44 Meds taken in AM with sips of water? Meds patient instructed to take am of surgery PONV PONV - telecom sales consultant: PONV - telecom sales consultant Female Yes 10/30/24 12:28 HX of Motion Sickness No 10/30/24 12:28 HX of N/V After Surgery No 10/30/24 12:28 Non-Smoker Yes 10/30/24 12:28 Duration of Surgery greater No 10/30/24 12:28 than 60 minutes Number of Risk Factors 2 10/30/24 12:28 PONV Score Moderate Risk 10/30/24 12:28 Height & Weight Height & Weight: Anesthesia: Height & Weight Height 5 ft 2 in 11/03/24 08:44 Weight: 108.862 kg 11/03/24 08:44 Body Mass Index (BMI) 43.9 11/03/24 08:44 Respiratory Assessment Respiratory Assessment - telecom sales consultant: Respiratory Tract Infection Hx - telecom sales consultant Hx Respiratory Tract Infection No 10/30/24 12:28 STOP Sleep Apnea STOP Sleep Apnea - telecom sales consultant: STOP Sleep Apnea - telecom sales consultant Hx Hypertension No 10/30/24 12:28 Hx Sleep Apnea No 10/30/24 12:28 CPAP BIPAP Do you snore loudly (louder Yes 10/30/24 12:28 than talking or can be heard Do you often feel tired/ No 10/30/24 12:28 fatigued/ sleepy during daytime? Has anyone observed you stop Yes 10/30/24 12:28 breathing during sleep? STOP Results Positive 10/30/24 12:28 QUESTION #5 FULL TEXT : Do you snore loudly (louder than talking or can be heard through closeddoors)? 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 Specify any problems Hx of Preganancy in last 3 No 10/30/24 12:28 Months Nurse Filling Out Transfusion JZOLLINGE 10/30/24 12:28 & Questions: Date: 10/30/24 10/30/24 12:28 Time: 12:33 10/30/24 12:28 Patient unable to answer at this time (ie. confused, unrespo /Reproduction History /Reproductive History - telecom sales consultant: /Reproductive Hx- telecom sales consultant Hx Now No 10/30/24 12:28 Gestational Age (in weeks): EDC: Hx Hx Para Hx Section SAB No 10/30/24 12:28 [facility] History History of hiatal hernia Heartburn Wears glasses Post-menopausal Anxiety Injury of head and neck Gastric reflux Former smoker History of irregular heartbeat High cholesterol Hiatal hernia Home Medications ?Medication ?Instructions ?Recorded ?Last Taken ?Type cholecalciferol (vitamin D3) 10 10 mcg PO DAILY 11/02/24 History mcg (400 unit) capsule magnesium 200 mg tablet 200 mg PO DAILY 06/14/23 History fluticasone propionate 50 1 spray intranasal DAILY PRN 03/20/24 Unknown History mcg/actuation nasal allergy symptoms spray,suspension (Flonase Allergy Relief) multivitamin with minerals 1 cap PO DAILY 03/20/24 History melatonin 10 mg capsule 10 mg PO HS PRN sleep 11/01/24 History ondansetron 4 mg disintegrating 4 mg PO Q8H PRN nausea and 09/02/24 Unknown Rx tablet vomiting #20 tabs citalopram 20 mg tablet (Celexa) 30 mg (1.5 x 20 mg) P O QDAY #135 09/22/24 11/02/24 Rx tabs atorvastatin 20 mg tablet 20 mg PO DAILY #90 tabs 09/2011/02/24 Rx pantoprazole 40 mg tablet,delayed 40 mg PO QDAY #90 ta bs 09/29/24 11/01/24 Rx release (Protonix) lactobacillus combination no.4 3 3,000 mmu cells PO QD AY 10/08/24 11/02/24 History billion cell capsule (Probiotic) sucralfate 1 gram tablet 1 g PO QACHS #56 tabs 11/01/24 Rx Allergy/AdvReac Type Severity Reaction Status Date / Time No Known Allergies Allergy Verified 11/03/24 08:41 Family History Mother Diabetes History of blood clots Anxiety Hypertension Father Diabetes Hypertension Pancreatic cancer Sister History of blood clots Lymphedema Grandmother Diabetes Sister GERD (gastroesophageal reflux disease) Surgical History History of salpingectomy S/P laparoscopic cholecystectomy Hx of esophagogastroduodenoscopy Hx of colonoscopy Hx of tonsillectomy Encounter for Essure implantation History of removal of cyst Social History adopted: No household members: spouse 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 11/03/24 1019 dano TOMLINSON> Date _ Akbar Angeles MD [facility] Signature: Date CC: ~ Signed [facility]03-17-2025 [facility] Medical Records Department [address] [place] [address] History Physical Exam 11/03/24 0946 MR#: [id number] Acct: [id number] Name: EDWARD PARADA Rep #: [id number] : 1960 64 From: Alcira Vizcarra MD PCP: Dr. Ann Dennison MD Status:[facility] Location: [place] [address] History and Physical Date of Admission: 11/03/24 Date of Service: 10/08/24 MR#: [id number] Acct: [id number] Name: EDWARD PARADA Rep #: [id number] : 1960 Provider: Dr. Alcira Vizcarra MD Age/Sex: 64/F Location: [facility] Status: Signed Intake Vital Signs 09/22/2513:06 10/08/2514:08 Height 5 ft 2 in 5 ft 2 in Weight: 245 lb 248 lb BMI 44.8 45.3 BP 132/80 H 124/83 H Blood Pressure Location Lt brachial Rt brachial Position Sitting Sitting Respiration 16 7 L Pulse 77 84 Pulse Source Monitor Monitor Temp 98.8 F Temp Source Temporal Pulse Oximetry (%) 95 98 Oxygen Delivery Method room air room air Intake Visit Reasons: GERD Chief Complaint: gerd Is patient in pain?: No Allergies No Known Allergies Allergy (Verified 10/08/24 15:09) Medications ???Medication ???Instructions ???Recorded ???Confirmed ???Type cholecalciferol (vitamin D3) 10 10 mcg PO DAILY 06/14/23 10/08/24 History mcg (400 unit) capsule magnesium 200 mg tablet 200 mg PO DAILY 06/14/23 10/08/24 History fluticasone propionate 50 1 spray intranasal DAILY PRN 03/20/24 10/08/24 His tory mcg/actuation nasal spray,suspension (Flonase Allergy Relief) multivitamin with minerals 1 cap PO DAILY 03/20/24 10/08/24 History melatonin 10 mg capsule 10 mg PO HS PRN 09/02/24 10/08/24 History ondansetron 4 mg disintegrating 4 mg PO Q8H PRN nausea and 09/02/24 10/08/24 Rx tablet vomiting #20 tabs citalopram 20 mg tablet (Celexa) 30 mg (1.5 x 20 mg) PO QDAY #135 09/22/24 10/08/24 Rx tabs atorvastatin 20 mg tablet 20 mg PO DAILY #90 tabs 09/29/24 10/08/24 Rx pantoprazole 40 mg tablet,delayed 40 mg PO QDAY #90 tabs 09/29/24 10/08/24 Rx release (Protonix) lactobacillus combination no.4 3 3,000 mmu cells PO QDAY 10/08/24 10/08/24 History billion cell capsule (Probiotic) sucralfate 1 gram tablet 1 g PO QACHS #56 tabs 10/08/24 10/08/24 Rx Have you fallen in the past year?: No PFSH Medical History Wears glasses Post-menopausal Anxiety Injury of head and neck Gastric reflux Former smoker History of irregular heartbeat High cholesterol Hiatal hernia Surgical History History of salpingectomy S/P laparoscopic cholecystectomy Hx of esophagogastroduodenoscopy Hx of colonoscopy Hx of tonsillectomy Encounter for Essure implantation History of removal of cyst Family History Mother Diabetes History of blood clots Anxiety HypertensionFather Diabetes Hypertension Pancreatic cancerSister History of blood clots LymphedemaGrandmother DiabetesSister GERD (gastroesophageal reflux disease) Social History adopted: No household members: spouse 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 (2) pets and animals: dog(s) history of recent travel: No Smoking Status: Former smoker quit date: 08/20/94 pack-years: 5 Tobacco: How many years used: 5 Electronic Cigarette Use: not used alcohol intake: never substance use type: does not use diet: low carbohydrate caffeine: Yes (2) Type: coffee frequency: 3-4 times per week ni/episcopal: Mosque seatbelt use: always do you feel safe at home: Yes additional social history: - Lindsay- on disability Female Reproductive History Menstrual Date of menopause: 12/24/13 Ab induced: 1 Ab spontaneous: 1 HPI HPI HPI: 64-year-old female presents due to right upper quadrant and epigastric pain for an EGD. Patient previous had an EGD by Dr. Sun in 2022 may have had a hiatal hernia at that time per patient. Patient does have a history of H. pylori but that was about 30 years ago. Patient did have a stool antigen test that was negative recently. Patient states she has been on omeprazole 20 mg p.o. daily about 3 years did up to 40 mg for about 2 weeks did not notice a change however just changed to Protonix 40 mg and states that her daily sharp pain has resolved she still only has a dull constant pain little more in the right upper quadrant. Patient is status post laparoscopic cholecystectomy. ROS General General: Yes weight change; No appetite, f (more content not included)...[facility] 09-02-2024 Evaluation note* Diagnosis Onset Date Resolution Status Admit Date Facial numbness acute August 202024 2:22pm Locking finger joint noneactive 2024 2:22pm Anxiety noneactive September 02, 2024 2:22pm Mixed hyperlipidemia noneactive 2024 2:22pm Viral illness noneactive August 2:22pm GERD (gastroesophageal reflu x disease) noneactive September 02 2:22pm Vitamin d deficiency noneactive 2024 2:22pm Upper abdominal pain noneactive 2024 1:52pm Anxiety noneactive September 22, 2024 1:52pm Mixed hyperlipidemia noneactive 2024 1:52pm Family history of pancreatic cancer noneactive September 22 1:52pm GERD (gastroesophageal reflu x disease) noneactive September 22 1:52pm Epigastric abdominal pain acute October 08, 2024 2:58pm Gastric reflux acute September 202024 2:58pm RUQ pain acute October 08, 2024 2:58pm [facility] Work Phone: 1(179) 427-245504-12-2024 NotePap Smear Specimen AdequacyApril 2023 11:59pmComment.Satisfactory for evaluation. Endocervical and/or squamous metaplasticcells (endocervical component)are present.[facility] A#[id number] Memorial HospitalComment on above:Satisfactory for evaluation. Endocervical and/or squamous metaplasticcells (endocervical component)are present.07-23-2023 Discharge summary Author Alcira Vizcarra [facility] July 23, 2023 3:04pm Note Date/Time July 23, 2023 3 :03pm [facility] Medical Records Department [address] [place] [address] Instructions for Home/Discharge Instructions 07/23/23 1502 MR#: [id number] Acct: [id number] Name: EDWARD PARADA DIAMANTE Rep #:[id number] : 1960 63 From: Alcira Vizcarra MD PCP: Dr. Ann Dennison MD Status:REG [facility] Discharge Instructions Diet Discharge Diet: Light diet - advance as tolerated Activity Discharge Activity: May Not Drive (while taking narcotic pain medications.) May shower in (days): 1 Lifting Restrictions: no lifting >20 lbs x 2 wks, no strenuous exercise for 4 wks Dressing / Incision Call your doctor if your incision/area has: Continuous Slow Oozing, Sudden Increased Bleeding, Increased Pain/ Swelling, Increased Redness, Foul Smelling Discharge and Swelling at the incision site Call your doctor if you observe: Fever of 101 or Higher Remove Dressing in: 2 days Cleanse incision/area with: Soap & Water Additional Dressing/Incision Instructions:: Steri-Strips will fall off in 7 to 10 days, if they do not fall off okay to remove after 10 days. Follow Up Care Please Follow Up With: Alcira Vizcarra MD When: Call the office for a follow-up appointment 2 weeks; after 5 PM and on call [phone] with any concerns. Test Results: Test results from this visit will be discussed in further detail at your follow- up appointment, if applicable. Discharge Plan Admission Attending Provider: Alcira Vizcarra Primary Care Provider: Ann Dennison Discharge Orders/Prescriptions Prescriptions: New tramadol 50 mg tablet 50 mg PO Q6H PRN (Reason: pain) Qty: 14 0RF Continued magnesium 200 mg tablet 200 mg PO DAILY cholecalciferol (vitamin D3) 10 mcg (400 unit) capsule 10 mcg PO DAILY vitamin B complex Capsule 1 cap PO DAILY Probiotic Acidophilus 250 million cell capsule 500 mmu cells PO DAILY atorvastatin 20 mg tablet 20 mg PO DAILY citalopram 20 mg tablet 20 mg PO DAILY omeprazole 20 mg capsule,delayed release(DR/EC) 40 mg PO DAILY Referrals / Follow Up: Ann Dennison MD [Primary Care Provider] - Disposition Disposition (needs filled in before D/C Order can be placed): Home, Self Care 07/23/23 4704<Electronically signed by Alcira Vizcarra MD>Alcira Vizcarra MD CC: Dr. Ann Dennison MD ~ Signed [facility] Work Phone: 1(754) 342-426412-04-2023 History and physical note Author Alcira Vizcarra [facility] July 23, 2023 1:30pm Note Date/Time July 23, 2023 1 2:23[facility] Medical Records Department [address] [place] [address] History & Physical Exam 07/23/23 1222 MR#: [id number] Acct: [id number] Name: EDWARD PARADA Rep #:[id number] : 1960 63 From: Alcira Vizcarra MD PCP: Dr. Ann Dennison MD Status:[facility] Location: [place] [address]- History and Physical Date of Admission: 07/23/23 Date of Service: 07/16/23 MR#: [id number] Acct: [id number] Name: EDWARD PARADA Rep #: [id number] : 1960 Provider: Dr. Alcira Vizcarra MD Age/Sex: 62/F Location: [facility] Status: Signed Intake Vital Signs 06/20/2312:48 07/16/2308:51 Height 5 ft 2 in 5 ft 2 in Weight: 252 lb BMI 46.0 BP 136/89 H Blood Pressure Location Rt brachial Position Sitting Respiration 17 Pulse 85 Pulse Source Monitor Temp 97.3 F L Temp Source Temporal Pulse Oximetry (%) 97 Oxygen Delivery Method room air Intake Visit Reasons: RUQ PAIN Chief Complaint: ruq pain Is patient in pain?: Yes Allergies No Known Allergies Allergy (Verified 07/16/23 08:52) Medications atorvastatin 20 mg tablet 20 mg PO DAILY 05/18/23 [History Confirmed 07/16/23] citalopram 20 mg tablet 20 mg PO DAILY 05/18/23 [History Confirmed 07/16/23] omeprazole 20 mg capsule,delayed release 20 mg PO DAILY 05/18/23 [History Confirmed 07/16/23] cholecalciferol (vitamin D3) 10 mcg (400 unit) capsule 10 mcg PO DAILY 06/14/23 [History Confirmed 07/16/23] magnesium 200 mg tablet 200 mg PO DAILY 06/14/23 [History Confirmed 07/16/23] vitamin B complex 1 cap PO DAILY 06/14/23 [History Confirmed 07/16/23] [facility] Medical History Acid reflux Anxiety Hiatal hernia High cholesterol Surgical History Encounter for Essure implantation History of removal of cyst Family History Mother Diabetes History of blood clots Anxiety HypertensionFather Diabetes Hypertension Pancreatic cancerSister History of blood clots LymphedemaGrandmother Diabetes Social History adopted: No household members: spouse current occupational status: employed current occupation: [employer] pets and animals: Yes (2) pets and animals: dog(s) history of recent travel: No Smoking Status: Former smoker pack-years: 5 Tobacco: How many years used: 5 Electronic Cigarette Use: not used alcohol intake: never substance use type: does not use diet: low carbohydrate caffeine: Yes (2) Type: coffee frequency: 3-4 times per week ni/episcopal: Mosque seatbelt use: always do you feel safe at home: Yes HPI HPI HPI: 63-year-old female presents due to right upper quadrant pain and gallstones. Patient states that she has been having flareups. States that yesterday she didhave 1 x 11 a.m. did eat yogurt and some berries about 10 AM. Patient states she had right upper quadrant/epigastric pain rates at the highest as a 9/10 states it did continue throughout the day but patient did have yogurt again thatday. Patient states she had nausea denies any vomiting. Did not get better until last night. Patient states today the pain is about a 5/10. Patient has been on omeprazole 20 mg p.o. daily for a couple years. Patient states she may have reflux symptoms maybe twice a week without these flareups are different. Patient had an ultrasound showed a gallstone normal wall normal, bile duct no pericholecystic fluid. ROS General General: Yes weight change; No appetite, fatigue, colon cancer, breast cancer or weakness HEENT HEENT: No difficulty swallowing, eye injury, eye surgery, swollen glands or hoarseness Endo Endocrine: No thyroid disease, diabetes mellitus, thyroid cancer, Hair loss, heat intolerance or cold intolerance Skin Skin: No rash or changing moles Musc Musculoskeletal: No back problems, arthritis, rheumatoid arthritis, gout or joint pain Cardio Cardiovascular: Yes murmur; No pacemaker, heart disease, atrial fibrillation, high blood pressure, heart attack, heart stent, palpitations, shortness of breat with exertion or chest pain Psych Psychiatric: Yes anxiety; No depression or hearing voices Resp Respiratory: No shortness of breath, Yes sleep apnea, No cough, No COPD, No asthma, No emphysema and No wheezing Gastro Gastrointestinal: Yes abdominal pain, Yes nausea or vomiting, No diarrhea, No constipation, No blood in stool, Yes acid reflux, No hemorrhoids, No ulcers, Yesgallbladder problem and No black,tarry stools Uriah Hematologic: No blood thinners, No blood disorders, No bleeding, No anemia and No blood clots Neuro Neurologic: No system reviewed and no additional complaints, except as documented, No as per HPI, No abnormal gait, No abnormal hearing, No abnormal movements, No abnormal speech, No behavioral changes, No burning sensations, No confusion, No convulsions, No disequilibrium, No dizziness, No localized weakness, No frequent falls, No headache(s), No lack of coordination, No loss ofvision, No memory loss, No numbness, No other visual disturbances, No radicular pain, No restless legs, No sensory deficit, No syncope, No tingling, No tremor(s), No weakness and No other Exam Const General: cooperative, healthy appearing, comfortable and no acute distress HENMT Head: normocephalic and atraumatic Neck Neck: supple Resp Effort & Inspection: normal respiratory effort Cardio Rate: regular rate GI Inspection: non-distended Palpation: soft, no hernias and tender in the epigastrum and in the RUQ Skin General: no rashes or lesions noted Neuro General: CN's II-XI intact bilaterally Extrem General: normal to inspection Psych Mental Status: mental status grossly normal Attitude: cooperative Assessment and Plan Assessment and Plan (1) Cholelithiasis: Status: Acute Plan Reviewed the anatomy with the patient and discussed the procedure: laparoscopic cholecystectomy with possible cholangiograms, possible open. Review risks including but not limited to bleeding, infection, hernia, bile leak, retained gallstones requiring another procedure ERCP- Endoscopic Retrograde Cholangiopancreatography, injury to another organ (bile ducts, common bile duct,small bowel, etc.) and conversion to an open procedure. All questions were answered. Will have patient increase her omeprazole to 40 mg p.o. daily during the perioperative time and also asked patient to stay with any fatty or greasy foodsprior to surgery. Patient was agreeable with plan. Alcira Vizcarra M.D. Pager: [phone] [facility] [address] [place] [address], Outpatient Pavilion, [address] [place] [address] Office: [phone] Coding Level of Care Code Off vis,new,level 3 Diagnoses Cholelithiasis K80.20 07/16/23 0947 <Electronically signed by Alcira Vizcarra MD> Date Alcira Vizcarra MD 07/23/23 1223 <Electronically signed by Alcira Vizcarra MD> Cosigner Signature (if applicable): CC: Dr. Ann Dennison MD; Dr. Alcira Vizcarra MD~ Signed ADDENDUM by Dr. Alcira Vizcarra MD on 07/23/23 at 1330 Addendum I have examined the patient and the H&P has been reviewed. There are no clinicalchanges since date of exam. 07/23/23 1330<Electronically signed by Alcira Vizcarra MD> Cosigner Signature (if applicable): cc: Dr. Ann Dennison MD; Dr. Alcira Vizcarra MD ~* Signed [facility] Work Phone: [phone] 392-800112-04-2023 Procedure [facility] 04-09-2023 Evaluation + Plan note Future Appointments Diagnostic Tests Pending * Tissue Transglutaminase Ab (IGA) 04/09/23 * Gliadin Antibody 04/09/23 Future Scheduled Tests Laboratory* Lipid Profile 06/08/23 * Complete Metabolic Panel 06/08/23 [facility] 11-08-2022 SARS-CoV-2 (COVID-19) RNA DELORIS+probe Ql (Nph) Negative *NA* (06/27/22 4:25 PM)AO Auto Urine [id number] Evaluation + Plan note Future Scheduled Tests Radiology* XR Chest 2 Views (PA & Lateral) 11/08/21 [facility] 03-22-2022 Evaluation + Plan note Future Scheduled Tests Radiology* XR Chest 2 Views (PA & Lateral) 11/08/21 [facility] Consult note Author Akbar Angeles [facility] Note Date/Time November 03, 2024 10: 19am [facility] Medical Records Department [address] [place] [address] Pre-Anesthesia Evaluation 11/03/24 1015 MR#: [id number] Acct: [id number] Name: EDWARD PARADA Rep #:[id number] : 1960 64 From: Akbar Angeles MD PCP: Dr. Ann Dennison MD Status:REG SDC Y Race: C Location: [place] [address] ASA Classification* ASA Classification ASA Classification: 3 Assessment & Plan Anesthesia* Anesthesia Assessment Anesthesia Assessment: Discussed sedation and/or anesthesia options, risks, benefits, and alternatives with patient/parents/legal guardian/POA. Questions invited. The patient/parents/legal guardian/POA seems to understand and agrees to proceedwith anesthesia plan. Reviewed the physical assessment, medical history, allergy history and patient home medications list prior to surgery/procedure/anesthetic and documented any changes. Performed airway and anesthesia risk assessments. Anesthesia Type Anesthesia Type: MAC History Source History Obtained from:: Patient and Chart Anesthesia Focused Assessment* Temperature: 97.4 F Pulse Rate: 69 Blood Pressure: 113/74 Respiratory Rate: 18 Pulse Ox: 97 Oxygen Delivery Method: Room Air Airway Assessment Mouth opens: >3 cm Mallampati Score: IV Teeth Condition: Caps/Crowns (Ehrenberg on left lower molar. It is tight.) Neck Range of motion (ROM): Limited ROM (Somewhat decreased extension) Focused Labs Anesthesia Preop lab: CBC WBC 7.2 K/mm3 (4.4-11.0) 09/02/24 15:34 09/02/24 RBC 4.64 M/mm3 (4.2-5.4) 09/02/24 15:34 09/02/24 Hgb 14.2 g/dL (12.0-15.0) 09/02/24 15:34 09/02/24 Hct 43.1 % (37-47) 09/02/24 15:34 09/02/24 Plt Count 246 K/mm3 (150-450) 09/02/24 15:34 09/02/24 CHEMISTRY Potassium 4.3 mmol/L (3.5-5.1) 09/02/24 15:34 09/02/24 Sodium 140 mmol/L (136-145) 09/02/24 15:34 09/02/24 BUN 20 mg/dL (7-18) H 09/02/24 15:34 09/02/24 Creatinine 0.78 mg/dL (0.55-1.02) 09/02/24 15:34 09/02/24 Glucose 100 mg/dL (74-106) 09/02/24 15:34 09/02/24 COAG Pre-Assessment Diagnosis/Proposed Procedure Planned Operative Procedure(s): EGD Anesthesia History 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 When Was Last Pacemaker Check QUESTION #4 FULL TEXT: You/Your Family Experience fever (hyperthermia) with Anesthesia Last Oral Intake Last Oral intake: Last Oral Intake NPO since 18:00 11/03/24 08:44 Meds taken in AM with sips of water? Meds patient instructed to take am of surgery PONV PONV - telecom sales consultant: PONV - telecom sales consultant Female Yes 10/30/24 12:28 HX of Motion Sickness No 10/30/24 12:28 HX of N/V After Surgery No 10/30/24 12:28 Non-Smoker Yes 10/30/24 12:28 Duration of Surgery greater No 10/30/24 12:28 than 60 minutes Number of Risk Factors 2 10/30/24 12:28 PONV Score Moderate Risk 10/30/24 12:28 Height & Weight Height & Weight: Anesthesia: Height & Weight Height 5 ft 2 in 11/03/24 08:44 Weight: 108.862 kg 11/03/24 08:44 Body Mass Index (BMI) 43.9 11/03/24 08:44 Respiratory Assessment Respiratory Assessment - telecom sales consultant: Respiratory Tract Infection Hx - telecom sales consultant Hx Respiratory Tract Infection No 10/30/24 12:28 STOP Sleep Apnea STOP Sleep Apnea - telecom sales consultant: STOP Sleep Apnea - telecom sales consultant Hx Hypertension No 10/30/24 12:28 Hx Sleep Apnea No 10/30/24 12:28 CPAP BIPAP Do you snore loudly (louder Yes 10/30/24 12:28 than talking or can be heard Do you often feel tired/ No 10/30/24 12:28 fatigued/ sleepy during daytime? Has anyone observed you stop Yes 10/30/24 12:28 breathing during sleep? STOP Results Positive 10/30/24 12:28 QUESTION #5 FULL TEXT : Do you snore loudly (louder than talking or can be heard through closed doors)? 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 Specify any problems Hx of Preganancy in last 3 No 10/30/24 12:28 Months Nurse Filling Out Transfusion JZOLLINGE 10/30/24 12:28 & Questions: Date: 10/30/24 10/30/24 12:28 Time: 12:33 10/30/24 12:28 Patient unable to answer at this time (ie. confused, unrespo /Reproduction History /Reproductive History - telecom sales consultant: /Reproductive Hx- telecom sales consultant Hx Now No 10/30/24 12:28 Gestational Age (in weeks): EDC: Hx Hx Para Hx Section SAB No 10/30/24 12:28 PFSH Medical History History of hiatal hernia Heartburn Wears glasses Post-menopausal Anxiety Injury of head and neck Gastric reflux Former smoker History of irregular heartbeat High cholesterol Hiatal hernia Home Medications ?Medication ?Instructions ?Recorded ?Last Taken ?Type cholecalciferol (vitamin D3) 10 10 mcg PO DAILY 11/02/24 History mcg (400 unit) capsule magnesium 200 mg tablet 200 mg PO DAILY 06/14/23 History fluticasone propionate 50 1 spray intranasal DAILY PRN 03/20/24 Unknown History mcg/actuation nasal allergy symptoms spray,suspension (Flonase Allergy Relief) multivitamin with minerals 1 cap PO DAILY 03/20/24 History melatonin 10 mg capsule 10 mg PO HS PRN sleep 11/01/24 History ondansetron 4 mg disintegrating 4 mg PO Q8H PRN nausea and 09/02/24 Unknown Rx tablet vomiting #20 tabs citalopram 20 mg tablet (Celexa) 30 mg (1.5 x 20 mg) P O QDAY #135 09/22/24 11/02/24 Rx tabs atorvastatin 20 mg tablet 20 mg PO DAILY #90 tabs 0211/02/24 Rx pantoprazole 40 mg tablet,delayed 40 mg PO QDAY #90 ta bs 09/29/24 11/01/24 Rx release (Protonix) lactobacillus combination no.4 3 3,000 mmu cells PO QD AY 10/08/24 11/02/24 History billion cell capsule (Probiotic) sucralfate 1 gram tablet 1 g PO QACHS #56 tabs 11/01/24 Rx Allergy/AdvReac Type Severity Reaction Status Date / Time No Known Allergies Allergy Verified 11/03/24 08:41 Family History Mother Diabetes History of blood clots Anxiety Hypertension Father Diabetes Hypertension Pancreatic cancer Sister History of blood clots Lymphedema Grandmother Diabetes Sister GERD (gastroesophageal reflux disease) Surgical History History of salpingectomy S/P laparoscopic cholecystectomy Hx of esophagogastroduodenoscopy Hx of colonoscopy Hx of tonsillectomy Encounter for Essure implantation History of removal of cyst Social History adopted: No household members: spouse 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 11/03/24 1019 <Electronically signed by Akbar matsno MD> Date _ Akbar Angeles MD Cosigner Signature: Date CC: ~ Signed [facility] Work Phone: Consult note Author Fredy Salguero [facility] Note Date/Time November 03, 2024 10: 48am [facility] Medical Records Department [address] [place] [address] Anesthesia Postop Eval I 11/03/24 1047 MR#: [id number] Acct: [id number] Name: EDWARD PARADA Rep #:[id number] : 1960 64 From: Fredy Salguero CRNA PCP: Dr. Ann Dennison MD Status:REG SDC Y Race: C Location: [place] [address] Anesthesia: Postop Eval I Current Vital Signs Temperature: 97.1 F Pulse Rate: 65 Blood Pressure: 101/58 Respiratory Rate: 20 Pulse Ox: 96 Oxygen Delivery Method: Room Air Assessment Airway patent: Yes Spontaneous unlabored respirations: Yes Mental status: Awake and Calm nausea: No Vomiting: No Anesthesia Complication: No Fluid Hydration Crystalloid volume administer (ml): 30 Total IV fluid infused: 30 Progress Note Anesthesia document: Postop Eval 1 completed: Yes 11/03/24 1048 <Electronically signed by Fredy sanchez CRNA> Date _ Fredy Salguero HOUSING QUALITY STANDARD INSPECTOR Cosigner Signature: Date CC: ~ Signed [facility] Work Phone: Consult note Author Kailyn Benitez [facility] Note Date/Time November 03, 2024 11: 18am [facility] Medical Records Department [address] [place] [address] Anesthesia Postop Eval II 11/03/24 1114 MR#: [id number] Acct: [id number] Name: EDWARD PARADA DIAMANTE Rep #:[id number] : 1960 64 From: Kailyn Benitez PCP: Dr. Ann Dennison MD Status:REG SDC Y Race: C Location: [place] [address] Anesthesia Postop Eval I Sum Postop Eval Completion status Anesthesia document: Postop Eval 1 completed: Yes Anesthesia Postop Eval I Summary Anesthesia Postop Eval I Summary: Anesthesia Postop Eval I: Assessment Summary Airway patent Yes 11/03/24 10:48 HOUSING QUALITY STANDARD INSPECTOR.[email or web address] Spontaneous unlabored Yes 11/03/24 10:48 HOUSING QUALITY STANDARD INSPECTOR.[email or web address] respirations Mental status Awake,Calm 11/03/24 10:48 HOUSING QUALITY STANDARD INSPECTOR.PKEL nausea No 11/03/24 10:48 HOUSING QUALITY STANDARD INSPECTOR.[email or web address] Vomiting No 11/03/24 10:48 HOUSING QUALITY STANDARD INSPECTOR.[email or web address] Anesthesia Postop Eval I: Fluid Summary Crystalloid volume administer 30 11/03/24 10:48 HOUSING QUALITY STANDARD INSPECTOR.PKEL (ml) Colloids volume administered ( ml) Blood Product volume administered (ml) Total IV fluid infused 30 11/03/24 10:48 HOUSING QUALITY STANDARD INSPECTOR.PKEL Anesthesia Postop Eval I: Summary Notes Anesthesia Complication No 11/03/24 10:48 HOUSING QUALITY STANDARD INSPECTOR.PKEL Anesthesia Complication Comment: Post-operative progress note Anesthesia: Postop Eval II Evaluation Mental status: Awake Pain Level: 0 nausea: No Vomiting: No 11/03/24 1114 <Electronically signed by Kailyn polk> Date _ Kailyn Yancey Signature: Date CC: ~ Signed [facility] Work Phone: Evaluation + Plan note No data available for this section [facility] Evaluation noteNo assessment information available [facility] Work Phone: Evaluation note* Diagnosis Onset Date Resolution Status RUQ pain noneactive Immunization due noneactive Establishing care with new doctor, encounter for noneactive Screening for cervical cancer noneactive Anxiety noneactive Mixed hyperlipidemia noneact mirian Screening for breast cancer noneactive GERD (gastroesophageal reflux disease) noneactive [facility] Work Phone: Evaluation note* Diagnosis Onset Date Resolution Status RUQ pain noneactive Immunization due noneactive Establishing care with new doctor, encounter for noneactive Screening for cervical cancer noneactive Anxiety noneactive Mixed hyperlipidemia noneact mirian Screening for breast cancer noneactive GERD (gastroesophageal reflux disease) noneactive Cholelithiasis acute [facility] Work Phone: Evaluation note* Diagnosis Onset Date Resolution Status S/P laparoscopic cholecystectomy resolved [facility] Work Phone: Evaluation note* Diagnosis Other acute nonsuppurative otitis media of right ear, recurrence not specified- Primary Acute pharyngitis, unspecified etiology [facility] Other acute nonsuppurative otitis media of right ear, recurrence not specified- Primary [facility] Author Alcira Vizcarra [facility] Note Date/Time November 03, 2024 10: 20am [facility] Medical Records Department [address] [place] [address] History & Physical Exam 11/03/24 0946 MR#: [id number] Acct: [id number] Name: EDWARD PARADA Rep #:[id number] : 1960 64 From: Alcira Vizcarra MD PCP: Dr. Ann Dennison MD Status:[facility] Location: [place] [address] History and Physical Date of Admission: 11/03/24 Date of Service: 10/08/24 MR#: [id number] Acct: [id number] Name: EDWARD PARADA Rep #: [id number] : 1960 Provider: Dr. Alcira Vizcarra MD Age/Sex: 64/F Location: [facility] Status: Signed Intake Vital Signs 09/22/2513:06 10/08/2514:08 Height 5 ft 2 in 5 ft 2 in Weight: 245 lb 248 lb BMI 44.8 45.3 BP 132/80 H 124/83 H Blood Pressure Location Lt brachial Rt brachial Position Sitting Sitting Respiration 16 7 L Pulse 77 84 Pulse Source Monitor Monitor Temp 98.8 F Temp Source Temporal Pulse Oximetry (%) 95 98 Oxygen Delivery Method room air room air Intake Visit Reasons: GERD Chief Complaint: gerd Is patient in pain?: No Allergies No Known Allergies Allergy (Verified 10/08/24 15:09) Medications ?Medication ?Instructions ?Recorded ?Confirmed ?Type cholecalciferol (vitamin D3) 10 10 mcg PO DAILY 06/14/23 10/08/24 Histor y mcg (400 unit) capsule magnesium 200 mg tablet 200 mg PO DAILY 06/14/23 10/08/24 Histor y fluticasone propionate 50 1 spray intranasal DAILY PRN 03/20/24 History mcg/actuation nasal spray,suspension (Flonase Allergy Relief) multivitamin with minerals 1 cap PO DAILY 03/20/24 10/08/24 History melatonin 10 mg capsule 10 mg PO HS PRN 09/02/24 10/08/24 Histor y ondansetron 4 mg disintegrating 4 mg PO Q8H PRN nausea and 09/02/2409/20 Rx tablet vomiting #20 tabs citalopram 20 mg tablet (Celexa) 30 mg (1.5 x 20 mg) PO QDAY #135 5 10/08/24 Rx tabs atorvastatin 20 mg tablet 20 mg PO DAILY #90 tabs 09/29/24 5 Rx pantoprazole 40 mg tablet,delayed 40 mg PO QDAY #90 tabs 09/29/24 10/08/24 Rx release (Protonix) lactobacillus combination no.4 3 3,000 mmu cells PO QDAY 10/08/24 5 History billion cell capsule (Probiotic) sucralfate 1 gram tablet 1 g PO QACHS #56 tabs 10/08/24 10/08/24 Rx Have you fallen in the past year?: No PFSH Medical History Wears glasses Post-menopausal Anxiety Injury of head and neck Gastric reflux Former smoker History of irregular heartbeat High cholesterol Hiatal hernia Surgical History History of salpingectomy S/P laparoscopic cholecystectomy Hx of esophagogastroduodenoscopy Hx of colonoscopy Hx of tonsillectomy Encounter for Essure implantation History of removal of cyst Family History Mother Diabetes History of blood clots Anxiety HypertensionFather Diabetes Hypertension Pancreatic cancerSister History of blood clots LymphedemaGrandmother DiabetesSister GERD (gastroesophageal reflux disease) Social History adopted: No household members: spouse 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 (2) pets and animals: dog(s) history of recent travel: No Smoking Status: Former smoker quit date: 08/20/94 pack-years: 5 Tobacco: How many years used: 5 Electronic Cigarette Use: not used alcohol intake: never substance use type: does not use diet: low carbohydrate caffeine: Yes (2) Type: coffee frequency: 3-4 times per week ni/episcopal: Mosque seatbelt use: always do you feel safe at home: Yes additional social history: - Lindsay- on disability Female Reproductive History Menstrual Date of menopause: 12/24/13 Ab induced: 1 Ab spontaneous: 1 HPI HPI HPI: 64-year-old female presents due to right upper quadrant and epigastric pain for an EGD. Patient previous had an EGD by Dr. Sun in 2022 may have had a hiatalhernia at that time per patient. Patient does have a history of H. pylori but that was about 30 years ago. Patient did have a stool antigen test that was negative recently. Patient states she has been on omeprazole 20 mg p.o. daily about 3 years did up to 40 mg for about 2 weeks did not notice a change however just changed to Protonix 40 mg and states that her daily sharp pain has resolvedshe still only has a dull constant pain little more in the right upper quadrant. Patient is status post laparoscopic cholecystectomy. ROS General General: Yes weight change; No appetite, fatigue, colon cancer or breast cancer HEENT HEENT: No difficulty swallowing, eye injury, eye surgery, swollen glands or hoarseness Endo Endocrine: No thyroid disease, diabetes mellitus, thyroid cancer, Hair loss, heat intolerance or cold intolerance Skin Skin: No rash or changing moles Musc Musculoskeletal: Yes back problems; No arthritis, rheumatoid arthritis, gout or joint pain Cardio Cardiovascular: Yes murmur; No pacemaker, heart disease, atrial fibrillation, high blood pressure, heart attack, heart stent, palpitations, shortness of breat with exertion or chest pain Psych Psychiatric: Yes anxiety; No depression or hearing voices Resp Respiratory: No shortness of breath, Yes sleep apnea, Yes cough, No COPD, No asthma, No emphysema and No wheezing Gastro Gastrointestinal: Yes abdominal pain, Yes nausea or vomiting, Yes diarrhea, No constipation, No blood in stool, Yes acid reflux, No hemorrhoids, No ulcers, Yesgallbladder problem and No black,tarry stools Uriah Hematologic: No blood thinners, No blood disorders, No bleeding, No anemia and No blood clots Neuro Neurologic: No numbness and No tingling Exam Const General: cooperative, healthy appearing, comfortable and no acute distress [facility] Head: normocephalic and atraumatic Neck Neck: supple Resp Effort & Inspection: normal respiratory effort Cardio Rate: regular rate GI Inspection: non-distended Palpation: soft and tender (Mild right upper quadrant and epigastric, no peritoneal signs) Skin General: no rashes or lesions noted Neuro General: CN's II-XI intact bilaterally Extrem General: normal to inspection Psych Mental Status: mental status grossly normal Attitude: cooperative Assessment and Plan Assessment and Plan (1) Gastric reflux: Status: Acute Comment: CONTROLLED WITH MED (2) Epigastric abdominal pain: Status: Acute (3) RUQ pain: Status: Acute Medications: New sucralfate Take an hour before meals and at bedtime 1 g PO QACHS 56 tabs 0RF Plan Also add Carafate see if that helps with her abdominal pain as well. I have discussed the above with the patient. I have offered the patient esophagogastroduodenoscopy for evaluation. I have explained the risks/benefits of the procedure and described the procedure. I have discussed the risks with the patient, including but not limited to: infection, bleeding, perforation of the GI tract requiring emergency surgery, inability to complete the procedure, injury to any internal organs, complications of anesthesia, etc. - the patient understands and agrees to proceed. I have answered all the patient's questions to the patient's satisfaction and the patient has no further questions. Alcira Vizcarra M.D. Pager: [phone] [facility] [address] [place] [address], [address] [place] [address] Office: [phone] Coding Level of Care Code Off vis,est,level 3 Diagnoses Gastric reflux K21.9 Epigastric abdominal pain R10.13 RUQ pain R10.11 Clinical Quality Measures Falls Risk Screening/Assistive Devices Have you fallen in the past year?: No 10/08/24 1539 <Electronically signed by Alcira Vizcarra MD> Date Alcira Vizcarra MD 11/03/24 1019 <Electronically signed by Alcira Vizcarra MD> Cosigner Signature (if applicable): CC: Dr. Ann Dennison MD; Dr. Alcira Vizcarra MD~ Signed ADDENDUM by Dr. Alcira Vizcarra MD on 11/03/24 at 1020 Addendum I have examined the patient the following changes are noted: Patient's heartburnhas improved with Carafate. 11/03/24 1020<Electronically signed by Alcira Vizcarra MD> Cosigner Signature (if applicable): cc: Dr. Ann Dennison MD; Dr. Alcira Vizcarra MD ~* Signed [facility] Work Phone: Hospital Discharge instructions No data available for this section [facility] Hospital Discharge instructions Additional Instructions EKG cardiac work-up negative. Chest x-ray negative. Follow-up with your doctor further testing. Return if any worsening or recurrent symptoms.[facility] Work Phone: Progress note No data available for this section [facility] Reason for referral (narrative)No reason for referral [facility] Work [facility]: Summary Purpose Family History Relationship Condition Age at Onset Recorded Date/T marques mother Diabetes mellitus Unknown History of blood clots Unknown Anxiety Unknown Hypertension Unknown father Diabetes mellitus Unknown Malignant neoplasm of pancreas Unknown sister History of blood clots Unknown Lymphedema Unknown grandmother Diabetes mellitus Unknown No Family History Records Found Advance Directives No Advanced Directives Records Found Advance Directive Response Recorded Date/ Time Living Will Yes May 18, 2023 10:18pm Power of Investigation Clerk Yes April 10:18pm Name of Medical Power of Investigation Clerk LINDSAY SEGOVIA May 18, 2023 10:18pm Advance Directive Response Recorded Date/ Time Name of Medical Power of Investigation Clerk LINDSAY SEGOVIA May 18, 2023 9:18pm Living Will Yes June 20 11:48am Power of Investigation Clerk Yes June 20, 2023 11:48am Advance Directive Response Recorded Date/ Time Name of Medical Power of Investigation Clerk SPOUSE July 19, 2023 2:15pm Living Will Yes July 19, 2 023 2:15pm Power of Investigation Clerk Yes July 19, 2023 2:15pm Name of Medical Power of Investigation Clerk LINDSAY SEGOVIA May 18, 2023 9:18pm Advance Directive Response Recorded Date/ Time Living Will Yes July 19, 2 023 3:15pm Power of Investigation Clerk Yes July 19, 2023 3:15pm Advance Directive Response Recorded Date/ Time Living Will Yes July 19, 2 023 3:15pm Power of Investigation Clerk Yes July 19, 2023 3:15pm Living Will Yes October 30, 2024 12:28pm Power of Investigation Clerk Yes October 30 12:28pm Name of Medical Power of Investigation Clerk LINDSAY PARADA October 30, 2024 12:28pm Advance Directive Response Recorded Date/ Time Living Will Yes July 19, 2 023 3:15pm Do you have a Healthcare Power of Investigation Clerk? Yes July 19, 2023 3:15pm Living Will Yes October 30, 2024 12:28pm Do you have a Healthcare Power of Investigation Clerk? Yes October 30, 2024 12:28pm Name of Medical Power of Investigation Clerk LINDSAY PARADA October 30, 2024 12:28pm Advance Directive Response Recorded Date/ Time Living Will Yes July 19, 2 023 3:15pm Do you have a Healthcare Power of Investigation Clerk? Yes July 19, 2023 3:15pm Chief Complaint and Reason for Visit Chief Complaint THROAT TIGHTNESS Chief Complaint THROAT TIGHTNESS EST NEW PT - PPW SENT Right upper quadrant pain; SCREENING Reason for Visit RUQ pain Immunization due Establishing care with new doctor, encounter for Screening for cervical cancer Anxiety Mixed hyperlipidemia Screening for breast cancer GERD (gastroesophageal reflux disease) Chief Complaint THROAT TIGHTNESS EST NEW PT - PPW SENT Right upper quadrant pain; SCREENING RUQ PAIN Laparoscopic, Cholecystectomy with Laparoscopic, Cholecystectomy with Reason for Visit RUQ pain Immunization due Establishing care with new doctor, encounter for Screening for cervical cancer Anxiety Mixed hyperlipidemia Screening for breast cancer GERD (gastroesophageal reflux disease) Cholelithiasis Chief Complaint GALLBLADDER 12-4 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) Reason for Visit S/P laparoscopic cho lecystectomy Chief Complaint Admit Date hernia issues September 02, 2024 2 :22pm ABDOMINAL ISSUES September 22, 2024 1 :52pm GERD October 08, 2024 2:58pm ABD PAIN October 13, 2024 4:50pm Reason for Visit Admit Date Facial numbness September 02, 2024 2 :22pm Locking finger joint September 02, 2024 2:22pm Anxiety September 02, 2024 2 :22pm Mixed hyperlipidemia September 02, 2024 2:22pm Viral illness September 02, 2024 2 :22pm GERD (gastroesophageal reflux disease) J anuary 2024 2:22pm Vitamin d deficiency September 02, 2024 2:22pm Upper abdominal pain September 22, 2024 1:52pm Anxiety September 22, 2024 1 :52pm Mixed hyperlipidemia September 22, 2024 1:52pm Family history of pancreatic cancer Febr uary 2024 1:52pm GERD (gastroesophageal reflux disease) F ebruary 2024 1:52pm Epigastric abdominal pain October 08, 2024 2:58pm Gastric reflux October 08, 2024 2:58pm RUQ pain October 08, 2024 2:58pm Chief Complaint Admit Date 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) December 10, 2024 12: 56pm HAND TREMORS / PNEUMONIA February 17, 2025 12:46pm Reason for Visit Admit Date Encounter for routine gynecological exam ination December 10, 2024 12:56pm Anxiety February 17, 2025 12:46 pm Mixed hyperlipidemia February 17, 2025 12:4 6pm GERD (gastroesophageal reflux disease) J mara 2024 12:46pm Vitamin d deficiency February 17, 2025 12:4 6pm Chief Complaint Admit Date 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) December 10, 2024 12: 56pm HAND TREMORS / PNEUMONIA February 17, 2025 12:46pm PMB x 2 days February 25, 2025 11:30 am Reason for Visit Admit Date Encounter for routine gynecological exam ination December 10, 2024 12:56pm Acute URI February 17, 2025 12:46 pm Anxiety February 17, 2025 12:46 pm Mixed hyperlipidemia February 17, 2025 12:4 6pm Tremor February 17, 2025 12:46 pm GERD (gastroesophageal reflux disease) J mara 2024 12:46pm Vitamin d deficiency February 17, 2025 12:4 6pm Reason for Visit Admit Date Encounter for routine gynecological exam ination December 10, 2024 12:56pm Acute URI February 17, 2025 12:46 pm Anxiety February 17, 2025 12:46 pm Mixed hyperlipidemia February 17, 2025 12:4 6pm Tremor February 17, 2025 12:46 pm GERD (gastroesophageal reflux disease) Moiz terry 2024 12:46pm Vitamin d deficiency February 17, 2025 12:4 6pm Atrophic vaginitis February 25, 2025 11:30 am Postmenopausal bleeding February 25, 2025 1 1:30am Vaginal burning February 25, 2025 11:30 am Chief Complaint Admit Date 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) December 10, 2024 12: 56pm HAND TREMORS / PNEUMONIA February 17, 2025 12:46pm PMB x 2 days February 25, 2025 11:30 am PMB March 10, 2025 12:4 4pm Chief Complaint Admit Date HAND TREMORS / PNEUMONIA February 17, 2025 12:46pm PMB x 2 days February 25, 2025 11:30 am PMB March 10, 2025 12:4 4pm 4w medication fu April 14, 2025 12 :52pm Reason for Visit Admit Date Acute URI February 17, 2025 12:46 pm Anxiety February 17, 2025 12:46 pm Mixed hyperlipidemia February 17, 2025 12:4 6pm Tremor February 17, 2025 12:46 pm GERD (gastroesophageal reflux disease) Moiz terry 2024 12:46pm Vitamin d deficiency February 17, 2025 12:4 6pm Atrophic vaginitis February 25, 2025 11:30 am Postmenopausal bleeding February 25, 2025 1 1:30am Vaginal burning February 25, 2025 11:30 am Chief Complaint Admit Date HAND TREMORS / PNEUMONIA February 17, 2025 12:46pm PMB x 2 days February 25, 2025 11:30 am PMB March 10, 2025 12:4 4pm 4w medication fu April 14, 2025 12 :52pm SURGICAL CONSULT ESSURE DEVICE REMOVAL O ctober 2024 1:43pm Reason for Visit Admit Date Acute URI February 17, 2025 12:46 pm Anxiety February 17, 2025 12:46 pm Mixed hyperlipidemia February 17, 2025 12:4 6pm Tremor February 17, 2025 12:46 pm GERD (gastroesophageal reflux disease) Moiz terry 1st, 2025 12:46pm Vitamin d deficiency February 17, 2025 12:4 6pm Atrophic vaginitis February 25, 2025 11:30 am Postmenopausal bleeding February 25, 2025 1 1:30am Vaginal burning February 25, 2025 11:30 am Atrophic vaginitis April 14, 2025 12 :52pm Pelvic pain April 14, 2025 12 :52pm Encounter for removal of Essure May 29, 2025 1:43pm Pelvic pain May 29, 2025 1 :43pm Additional Source Comments Care Team (unrecognized sect ion and content) Care Team Personnel Name: Nahum Alexander Clerk Viviane PT Position: P3 Scheduling - Professional Fighter Advanced Member Role: Other Name: RUPA MIRANDA TECHNICAL IMPLEMENTATION LEAD-CARE TEAM COORDINATOR SCHEDULER Position: P4 Advanced Practice Nurse Med Service: Employed Provider Member Role: Primary Care Physician Address: Address: [address] [place] [address] Care Team Related Persons Name: LINDSAY PARADA Care Team Personnel Name: Nahum Alexander Clerphilly Pan PT Position: P3 Scheduling - Professional Fighter Advanced Member Role: Other Name: RUPA MIRANDA TECHNICAL IMPLEMENTATION LEAD-CARE TEAM COORDINATOR SCHEDULER Position: P4 Advanced Practice Nurse Member Role: Primary Care Physician Address: Address: [address] [place] [address] Care Team Related Persons Name: LINDSAY PARADA Care Team Personnel Name: Nahum Alexander Clerk Viviane PT Position: P3 Scheduling - Professional Fighter Advanced Member Role: Other Name: RUPA MIRANDA TECHNICAL IMPLEMENTATION LEAD-CARE TEAM COORDINATOR SCHEDULER Position: P4 Advanced Practice Nurse Member Role: Primary Care Physician Address: Address: [address] [place] [address] Care Team Related Persons Name: LINDSAY PARADA Patient Care team informatio n (unrecognized section and content) Team Status: Active Member Role Status Dates Rupa Miranda ANTENNA ENGINEER, ANTENNA ENGINEER-C Family Provider Active Rupa Miranda ANTENNA ENGINEER, ANTENNA ENGINEER-C Primary Care Provider Active Team Status: Inactive Member Role Status Dates Rupa Miranda ANTENNA ENGINEER, ANTENNA ENGINEER-C Primary Care Provider Active Dr. Henry Vasques , DO Emergency Provider Active Team Status: Active Member Role Status Dates Rupa Miranda ANTENNA ENGINEER, ANTENNA ENGINEER-C Family Provider Active Dr. Ann Dennison MD Primary Care Provider Active Team Status: Inactive Member Role Status Dates Rupa Miranda ANTENNA ENGINEER, ANTENNA ENGINEER-C Primary Care Provider, Referri ng Provider Active Dr. Ann Dennison MD Attending Provider Active Team Status: Inactive Member Role Status Dates Rupa Miranda ANTENNA ENGINEER, ANTENNA ENGINEER-C Primary Care Provider Active Dr. Henry Vasques DO Attending Provider, Emergency Provide r Active Team Status: Inactive Member Role Status Dates Dr. Ann Dennison MD Primary Care Pro vider, Attending Provider, Referring Provider Active Team Status: Inactive Member Role Status Dates Dr. Ann Dennison MD Primary Care Provider, Referri ng Provider Active Dr. Alcira Vizcarra MD Attending Provider Active Team Status: Active Member Role Status Dates Dr. Ann Dennison MD Primary Care Provider Active Dr. Alcira Vizcarra MD Attending Provi darnell, Referring Provider, Other Provider Active Team Status: Inactive Member Role Status Dates Dr. Ann Dennison MD Primary Care Provider Active Dr. Alcira Vizcarra MD Attending Provider, Referring Provider Active Team Status: Inactive Member Role Status Dates Dr. Ann Dennison MD Primary Care Provider, Referri ng Provider Active Tiffanie Nelson CNM Attending Provider Active Team Status: Inactive Member Role Status Dates Dr. Ann Dennison MD Primary Care Provider Active Tiffanie Nelson CNM Attending Provider, Referring Pro vider Active Team Status: Active Member Role Status Dates Dr. Ann Dennison MD Primary Care Provider Active Team Status: Inactive Member Role Status Dates Dr. Ann Dennison MD Primary Care Provider Active Start: September 02, 2024 End: September 02, 2024 Dr. Ann Dennison MD Attending Provider Active Start: September 02, 2024 End: September 02, 2024 Dr. Ann Dennison MD Referring Provider Active Start: September 02, 2024 End: September 02, 2024 Team Status: Inactive Member Role Status Dates Dr. Ann Dennison MD Primary Care Provider Active Start: September 22, 2024 End: September 22, 2024 Dr. Ann Dennison MD Attending Provider Active Start: September 22, 2024 End: September 22, 2024 Dr. Ann Dennison MD Referring Provider Active Start: September 22, 2024 End: September 22, 2024 Team Status: Inactive Member Role Status Dates Dr. Ann Dennison MD Primary Care Provider Active Start: September 25, 2024 End: September 25, 2024 Dr. Ann Dennison MD Attending Provider Active Start: September 25, 2024 End: September 25, 2024 Dr. Ann Dennison MD Referring Provider Active Start: September 25, 2024 End: September 25, 2024 Team Status: Inactive Member Role Status Dates Dr. Ann Dennison MD Primary Care Provider Active Start: October 08, 2024 End: October 08, 2024 Dr. Ann Dennison MD Referring Provider Active Start: October 08, 2024 End: October 08, 2024 Dr. Alcira Vizcarra MD Attending Provider Active Start: October 08, 2024 End: October 08, 2024 Team Status: Inactive Member Role Status Dates Dr. Ann Dennison MD Primary Care Provider Active Start: October 13, 2024 End: October 13, 2024 Dr. Ann Dennison MD Attending Provider Active Start: October 13, 2024 End: October 13, 2024 Dr. Ann Dennison MD Referring Provider Active Start: October 13, 2024 End: October 13, 2024 Team Status: Inactive Member Role Status Dates Dr. Ann Dennison MD Primary Care Provider Active Start: November 03, 2024 End: November 03, 2024 Dr. Ann Dennison MD Referring Provider Active Start: November 03, 2024 End: November 03, 2024 Dr. Alcira Vizcarra MD Attending Provider Active Start: November 03, 2024 End: November 03, 2024 Team Status: Active Member Role Status Dates Dr. Ann Dennison MD Primary Care Provider Active Start: November 03, 2024 Dr. Ann Dennison MD Referring Provider Active Start: November 03, 2024 Dr. Alcira Vizcarra MD Attending Provider Active Start: November 03, 2024 Dr. Alcira Vizcarra MD Other Provider Active S tart: November 03, 2024 Diabetes Nurse Relationship Specialty Start Date End Date Rupa Miranda, CARE TEAM COORDINATOR SCHEDULER [address] [place] [id number] PCP - General Family Medicine 08/14/14 Diabetes Nurse Relationship Specialty Start Date End Date Ruth Rupa RYAN Campos [address] [place] [address] PCP - General Family Medicine 08/14/14 Team Status: Active Member Role/Relationship Status Dates Dr. Ann Dennison MD Primary Care Provider Active Team Status: Inactive Member Role/Relationship Status Dates Dr. Ann Dennison MD Primary Care Provider Active Start: November 03, 2024 End: November 03, 2024 Dr. Ann Dennison MD Referring Provider Active Start: November 03, 2024 End: November 03, 2024 Dr. Alcira Vizcarra MD Attending Provider Active Start: November 03, 2024 End: November 03, 2024 Team Status: Active Member Role/Relationship Status Dates Dr. Ann Dennison MD Primary Care Provider Active Start: November 03, 2024 Dr. Ann Dennison MD Referring Provider Active Start: November 03, 2024 Dr. Alcira Vizcarra MD Attending Provider Active Start: November 03, 2024 Dr. Alcira Vizcarra MD Other Provider Active S tart: November 03, 2024 Team Status: Inactive Member Role/Relationship Status Dates Dr. Ann Dennison MD Primary Care Provider Active Start: December 10, 2024 End: December 10, 2024 Dr. Ann Dennison MD Referring Provider Active Start: December 10, 2024 End: December 10, 2024 ELBA Reynoso Attending Provider Active Start: December 10, 2024 End: December 10, 2024 Team Status: Inactive Member Role/Relationship Status Dates Dr. Ann Dennison MD Primary Care Provider Active Start: February 17, 2025 End: February 17, 2025 Dr. Ann Dennison MD Attending Provider Active Start: February 17, 2025 End: February 17, 2025 Dr. Ann Dennison MD Referring Provider Active Start: February 17, 2025 End: February 17, 2025 Team Status: Inactive Member Role/Relationship Status Dates Dr. Ann Dennison MD Primary Care Provider Active Start: February 25, 2025 End: February 25, 2025 Dr. Ann Dennison MD Referring Provider Active Start: February 25, 2025 End: February 25, 2025 Raquel Crump NP, ANTENNA ENGINEER-C Attending Provider Active Start: February 25, 2025 End: February 25, 2025 Team Status: Inactive Member Role/Relationship Status Dates Dr. Ann Dennison MD Primary Care Provider Active Start: February 25, 2025 End: February 25, 2025 Raquel Crump ANTENNA ENGINEER, ANTENNA ENGINEER-C Attending Provider Active Start: February 25, 2025 End: February 25, 2025 Team Status: Inactive Member Role/Relationship Status Dates Dr. Ann Dennison MD Primary Care Provider Active Start: December 10, 2024 End: December 10, 2024 Dr. Ann Dennison MD Referring Provider Active Start: December 10, 2024 End: December 10, 2024 Birgit Juarez NP-C Attending Provider Active Start: December 10, 2024 End: December 10, 2024 Team Status: Inactive Member Role/Relationship Status Dates Dr. Ann Dennison MD Primary Care Provider Active Start: February 17, 2025 End: February 17, 2025 Dr. Ann Dennison MD Attending Provider Active Start: February 17, 2025 End: February 17, 2025 Dr. Ann Dennison MD Referring Provider Active Start: February 17, 2025 End: February 17, 2025 Team Status: Inactive Member Role/Relationship Status Dates Dr. Ann Dennison MD Primary Care Provider Active Start: February 25, 2025 End: February 25, 2025 Dr. Ann Dennison MD Referring Provider Active Start: February 25, 2025 End: February 25, 2025 Raquel Crump NP, ANTENNA ENGINEER-C Attending Provider Active Start: February 25, 2025 End: February 25, 2025 Team Status: Inactive Member Role/Relationship Status Dates Dr. Ann Dennison MD Primary Care Provider Active Start: February 25, 2025 End: February 25, 2025 Raquel Crump ANTENNA ENGINEER, ANTENNA ENGINEER-C Attending Provider Active Start: February 25, 2025 End: February 25, 2025 Team Status: Inactive Member Role/Relationship Status Dates Dr. Ann Dennison MD Primary Care Provider Active Start: March 10, 2025 End: March 10, 2025 Raquel Crump ANTENNA ENGINEER, ANTENNA ENGINEER-C Attending Provider Active Start: March 10, 2025 End: March 10, 2025 Raquel Crump ANTENNA ENGINEER, ANTENNA ENGINEER-C Referring Provider Active Start: March 10, 2025 End: March 10, 2025 Team Status: Inactive Member Role/Relationship Status Dates Dr. Ann Dennison MD Primary Care Provider Active Start: February 17, 2025 End: February 17, 2025 Dr. Ann Dennison MD Attending Provider Active Start: February 17, 2025 End: February 17, 2025 Dr. Ann Dennison MD Referring Provider Active Start: February 17, 2025 End: February 17, 2025 Team Status: Inactive Member Role/Relationship Status Dates Dr. Ann Dennison MD Primary Care Provider Active Start: February 25, 2025 End: February 25, 2025 Dr. Ann Dennison MD Referring Provider Active Start: February 25, 2025 End: February 25, 2025 Raquel Crump ANTENNA ENGINEER, ANTENNA ENGINEER-C Attending Provider Active Start: February 25, 2025 End: February 25, 2025 Team Status: Inactive Member Role/Relationship Status Dates Dr. Ann Dennison MD Primary Care Provider Active Start: February 25, 2025 End: February 25, 2025 Raquel Crump ANTENNA ENGINEER, ANTENNA ENGINEER-C Attending Provider Active Start: February 25, 2025 End: February 25, 2025 Team Status: Inactive Member Role/Relationship Status Dates Dr. Ann Dennison MD Primary Care Provider Active Start: March 10, 2025 End: March 10, 2025 Raquel Crump ANTENNA ENGINEER, ANTENNA ENGINEER-C Attending Provider Active Start: March 10, 2025 End: March 10, 2025 Raquel Crump ANTENNA ENGINEER, ANTENNA ENGINEER-C Referring Provider Active Start: March 10, 2025 End: March 10, 2025 Team Status: Inactive Member Role/Relationship Status Dates Dr. Ann Dennison MD Primary Care Provider Active Start: April 14, 2025 End: April 14, 2025 Dr. Ann Dennison MD Referring Provider Active Start: April 14, 2025 End: April 14, 2025 Raquel Crump ANTENNA ENGINEER, ANTENNA ENGINEER-C Attending Provider Active Start: April 14, 2025 End: April 14, 2025 Team Status: Active Member Role/Relationship Status Dates Dr. Ann Dennison MD Primary care physician Active Team Status: Inactive Member Role/Relationship Status Dates Dr. Ann Dennison MD Primary care physician Active Start: February 17, 2025 End: February 17, 2025 Dr. Ann Dennison MD Attending physician Active Start: February 17, 2025 End: February 17, 2025 Dr. Ann Dennison MD Referring Provider Active Start: February 17, 2025 End: February 17, 2025 Team Status: Inactive Member Role/Relationship Status Dates Dr. Ann Dennison MD Primary care physician Active Start: February 25, 2025 End: February 25, 2025 Dr. Ann Dennison MD Referring Provider Active Start: February 25, 2025 End: February 25, 2025 Raquel Crump ANTENNA ENGINEER, ANTENNA ENGINEER-C Attending physician Active Start: February 25, 2025 End: February 25, 2025 Team Status: Inactive Member Role/Relationship Status Dates Dr. Ann Dennison MD Primary care physician Active Start: February 25, 2025 End: February 25, 2025 Raquel Crump ANTENNA ENGINEER, ANTENNA ENGINEER-C Attending physician Active Start: February 25, 2025 End: February 25, 2025 Team Status: Inactive Member Role/Relationship Status Dates Dr. Ann Dennison MD Primary care physician Active Start: March 10, 2025 End: March 10, 2025 Raquel Crump ANTENNA ENGINEER, ANTENNA ENGINEER-C Attending physician Active Start: March 10, 2025 End: March 10, 2025 Raquel Crump ANTENNA ENGINEER, ANTENNA ENGINEER-C Referring Provider Active Start: March 10, 2025 End: March 10, 2025 Team Status: Inactive Member Role/Relationship Status Dates Dr. Ann Dennison MD Primary care physician Active Start: April 14, 2025 End: April 14, 2025 Dr. Ann Dennison MD Referring Provider Active Start: April 14, 2025 End: April 14, 2025 Raquel Crump ANTENNA ENGINEER, ANTENNA ENGINEER-C Attending physician Active Start: April 14, 2025 End: April 14, 2025 Team Status: Inactive Member Role/Relationship Status Dates Dr. Ann Dennison MD Primary care physician Active Start: May 29, 2025 End: May 29, 2025 Dr. Ann Dennison MD Referring Provider Active Start: May 29, 2025 End: May 29, 2025 Dr. Jannette Garcia DO Attending physician Marcellus ve Start: May 29, 2025 End: May 29, 2025 INFORMATION SOURCE (unrecogn ized section and content) DATE CREATED AUTHOR 04/17/2023 [facility] ([place]) DATE CREATED AUTHOR AUTHOR'S ORGANIZ ATION 02/08/2025 [facility] DATE CREATED AUTHOR AUTHOR'S ORGANIZ ATION 06/29/2025 [facility] Goals (unrecognized section and content) Goals may be documented in a n alternate section Source Comments (unrecognize d section and content) In the event this informatio n is protected by the Federal Confidentiality of Alcohol and Drug Abuse Patient Records regulations: The Federal rules restrict any use of the information to criminally investigate or prosecute any alcohol or drug abuse patient.[facility] the event this information is protected by the Federal Confidentiality of Alcohol and Drug Abuse Patient Records regulations: The Federal rules restrict any use of the information to criminally investigate or prosecute any alcohol or drug abuse patient.[facility] Reason for Visit (unrecogniz ed section and content) Reason Comments Ear Pain ZEYNEP ear pain, conges tion, cough,drainage, sore throat, nausea x 2 days Reason Comments Medication Request FOR RECORDS PERTAINING TO PATIENTS WHO ARE OR HAVE BEEN ENROLLED IN A CHEMICAL DEPENDENCY/SUBSTANCEABUSE PROGRAM, SOME INFORMATION MAY BE OMITTED. This clinical summary was aggregated from multiple sources. Caution should be exercised in using it in the provision of clinical care. This summary normalizes information from multiple sources, and as a consequence, information in this document may materially change the coding, format and clinical context of patient data. In addition, data may be omitted in some cases. CLINICAL DECISIONS SHOULD BE BASED ON THE PRIMARY CLINICAL RECORDS. [employer] [facility]. provides no warranty or guarantee of the accuracy or completeness of information in this document.
== END 2025-07-26 23:52 | disposition home or self-care (01) ==
LOC: ED 23:44
PROVIDERS: Emergency Provider Emergency Medicine; PCP Internal Medicine; Visit Provider Emergency Medicine
DX: S01.511A Laceration without foreign body of lip, initial encounter (principal); Z87.891 Personal history of nicotine dependence; W19.XXXA Unspecified fall, initial encounter
CPT/HCPCS: 12011; 99282

== ENCOUNTER → 2025-08-06 | Outpatient (CLI) | payer OTHER, SELFPAY ==
--- NOTE | 2025-08-06 08:45 | BI_ITS ---
EXAM: SCRN MAMM (CAD)W/KEY BILAT DATE: 08/06/2025 CLINICAL HISTORY: F, Age 65 y/o , SCREEN FOR BREAST CANCER No family history. TECHNIQUE: Procedure Code: [id number] Modality: MG Procedure: SCRN MAMM (CAD)W/KEY BILAT COMPARISON: Prior exam(s) dated July 03, 2024.. FINDINGS: TISSUE DENSITY: The breasts are almost entirely fatty. Bilateral Breast Mammographic Findings: No significant masses, calcifications or other abnormalities are identified. Stable bilateral fat containing axillary lymph nodes. No suspicious masses, areas of developing architectural distortion, or suspicious calcifications. There has been no significant interval change. BI/SCRN MAMM (CAD)W/KEY BILAT IMPRESSION: Stable bilateral screening mammogram. OVERALL FINAL ASSESSMENT BI-RADS 2: BENIGN RECOMMENDATION: Routine annual follow-up in 1 Year Additional Recommendation none A letter with findings and recommendations will be mailed to the patient. Reading Location: [facility]
== END | disposition home or self-care (01) ==
PROVIDERS: PCP Internal Medicine; Referring Provider Nurse Practitioner Family; Visit Provider Nurse Practitioner Family
DX: Z12.31 Encounter for screening mammogram for malignant neoplasm of breast (principal)
CPT/HCPCS: 77063; 77067